=== PATIENT | male | born 1960 | race Caucasian/White ===

== ENCOUNTER 2024-02-19 20:02 | Emergency (ER) | payer MEDICARE, SELFPAY ==
[2024-02-19 20:07] VITALS: BP 126/64; PULSE 73; TEMP 36.6; O2SAT 93; BMI 38.5
--- NOTE | 2024-02-19 21:05 | ED.PSYCH1 ---
HPI - Psych General Chief Complaint: Psychiatric Symptoms Stated Complaint: DEPRESSION Time Seen by Provider: 02/19/24 20:10 Source: Reports patient Mode of arrival: walk-in Limitations: Reports no limitations History of Present Illness HPI Narrative: 63-year-old male to the emergency department chief complaint of feeling depressed. Patient reports that there is a festival in town. He reports that when the music is loud he feels sad and depressed. When the music is not loud he feels at his baseline. He came tonight to talk to somebody about it. He denies any SI or HI. He denies any auditory or visual hallucinations. He has no medical concerns at this time. Related Data Home Medications ?Medication ?Instructions ?Recorded ?Confirmed amlodipine 10 mg tablet 10 mg PO DAILY 02/19/24 02/19/24 atorvastatin 40 mg tablet 40 mg PO DAILY 02/19/24 02/19/24 glimepiride 4 mg tablet 4 mg PO DAILY 02/19/24 02/19/24 insulin glargine 100 unit/mL (3 40 unit subcut BID 02/19/24 02/19/24 mL) subcutaneous pen (Lantus Solostar U-100 Insulin) levocetirizine 5 mg tablet 5 mg PO DAILY 02/19/24 02/19/24 lisinopril 40 mg tablet 40 mg PO DAILY 02/19/24 02/19/24 omeprazole 20 mg capsule,delayed 20 mg PO DAILY 02/19/24 02/19/24 release oxybutynin chloride 10 mg 10 mg PO DAILY 02/19/24 02/19/24 tablet,extended release 24 hr pilocarpine HCl 5 mg tablet 5 mg PO DAILY 02/19/24 02/19/24 semaglutide 0.25 mg or 0.5 mg (2 2 mg subcut DAILY 02/19/24 02/19/24 mg/3 mL) subcutaneous pen injector (Ozempic) Allergies Allergy/AdvReac Type Severity Reaction Status Date / Time No Known Drug Allergies Allergy Verified 02/19/24 20:11 Review of Systems ROS Status of ROS 10 or more systems reviewed and unremarkable except as noted in history and below [facility] Medical History (Updated 02/19/24 @ 23:49 by Alexis Singh MD) High cholesterol ?E78.00 - Pure hypercholesterolemia, unspecified (ICD-10) Diabetes ?E11.9 - Type 2 diabetes mellitus without complications (ICD-10) Hypertension ?I10 - Essential (primary) hypertension (ICD-10) Social History Little interest or pleasure in doing things: not at all Feeling down, depressed, or hopeless: more than half the days Exam Narrative Exam Narrative: VITALS: I have reviewed the triage vital signs. GENERAL: Obese adult male in no distress. Smiling and waving as he walks in. NEURO: Alert and oriented x 4. Moves all extremities. Face is symmetric and expressive. EYES: PERRL. No scleral icterus or conjunctival injection. No discharge. HENT: Normocephalic, atraumatic. Hearing is grossly intact. Nares grossly patent and without discharge. Mucous membranes moist. NECK: No JVD. Patient moves neck without restriction. CARDIO: Rhythm regular. Normal rate. No murmur, rub, or gallop. Pulses equal bilaterally in the upper and lower extremity. No lower extremity edema. PULM: Lungs clear to auscultation in all trent. No wheezes, rales, or rhonchi. No conversational dyspnea. No splinting, stridor, or accessory muscle use. GI/: Abdomen is soft and non-tender. Normoactive bowel sounds. EXTREMITIES: Symmetric muscle bulk. No joint swelling. No clubbing, cyanosis, or deformity. SKIN: Warm and dry. Normal turgor. No rash or lesions appreciated. PSYCH: Mood, affect, and interaction is appropriate to the setting. Constitutional Vital Signs, click to edit/add: Last Vital Signs Temp 97.9 F 02/19/24 20:07 Pulse 68 02/20/24 00:22 Resp 20 02/20/24 00:22 BP 112/61 02/20/24 00:22 Pulse Ox 94 L 02/20/24 00:22 O2 Del Method Room Air 02/20/24 00:22 Course Vital Signs Vital signs: Vital Signs Temperature 97.9 F 02/19/24 20:07 Pulse Rate 73 02/19/24 20:07 Respiratory Rate 18 02/19/24 20:07 Blood Pressure 126/64 02/19/24 20:07 Pulse Oximetry 93 L 02/19/24 20:07 Oxygen Delivery Method Room Air 02/19/24 20:07 Temperature 97.9 F 02/19/24 20:07 Pulse Rate 68 02/20/24 00:22 Respiratory Rate 20 02/20/24 00:22 Blood Pressure 112/61 02/20/24 00:22 Pulse Oximetry 94 L 02/20/24 00:22 Oxygen Delivery Method Room Air 02/20/24 00:22 MDM - Psych MDM Narrative Medical decision making narrative: 63-year-old male to the emergency department chief complaint of feeling depressed when music is loud at a festival in town. Vital stable, the patient is afebrile. No SI or HI. No medical complaints at this time. Will have him talk with [facility] to get follow-up. Despite telling myself and nursing staff that he had no suicidal ideation after talking to [facility] he did not involve that he has suicidal ideation. They will pursue voluntary admission at this time. Psychiatric clearance labs are ordered. Lab work unremarkable. Patient is medically cleared for psychiatric placement. Accepted to Dr. Boland at [facility] [place] [place] [facility]. Medical Records Attestation: I reviewed the patient's medical records. Lab Data Attestation: I reviewed the patient's lab results. Labs: Lab Results 02/19/24 02/19/24 Range/Units 22:52 22:53 WBC 7.3 (4.0-11.0) 10^3/uL RBC 4.65 L (4.70-6.10) 10^6/uL Hgb 12.3 L (14.0-18.0) g/dL Hct 38.4 L (42.0-54.0) % MCV 82.6 (80.0-94.0) fL MCH 26.5 (25.9-34.0) pg MCHC 32.0 (29.9-35.2) g/dL RDW 16.9 H (11.0-15.0) % Plt Count 205 (150-450) 10^3/uL MPV 9.9 (9.5-13.5) fL Neut % (Auto) 55.1 (43.0-75.0) % Lymph % (Auto) 34.0 (20.5-60.0) % [place] % (Auto) 7.0 (1.7-12.0) % Eos % (Auto) 3.1 (0.9-7.0) % Baso % (Auto) 0.5 (0.2-2.0) % Neut # (Auto) 4.0 (1.4-6.5) 10^3/uL Lymph # (Auto) 2.5 (1.2-3.8) 10^3/uL [place] # (Auto) 0.5 (0.3-0.8) 10^3/uL Eos # (Auto) 0.2 (0.0-0.7) 10^3/uL Baso # (Auto) 0.0 (0.0-0.1) 10^3/uL Abs Immat Gran (auto) 0.02 (0.00-0.03) 10^3/uL Imm/Tot Granulo (auto) 0.3 (0.0-0.5) % Sodium 137 (136-145) mmol/L Potassium 3.6 (3.5-5.1) mmol/L Chloride 101 (98-107) mmol/L Carbon Dioxide 23.2 (21.0-32.0) mmol/L Anion Gap 16.4 BUN 41.0 H (7.0-18.0) mg/dL Creatinine 2.87 H (0.70-1.30) mg/dL Est GFR ( Amer) 27 L (>=60) Est GFR (Non-Af Amer) 23 L (>=60) BUN/Creatinine Ratio 14.3 Glucose 133 H (74-106) mg/dL Calcium 10.1 (8.5-10.1) mg/dL Total Bilirubin 0.4 (0.2-1.0) mg/dL AST 29 (15-37) U/L ALT 23 (16-63) U/L Alkaline Phosphatase 154 H (46-116) U/L Total Protein 8.2 (6.4-8.2) g/dL Albumin 3.7 (3.4-5.0) g/dL Globulin 4.5 g/dL Albumin/Globulin Ratio 0.8 Urine Color Lt. yellow (YELLOW) Urine Clarity Clear (CLEAR) Urine pH 5.5 (5.0-9.0) Ur Specific [place] 1.010 (1.005-1.025) Urine Protein Negative (NEG/TRACE) mg/dL Urine Glucose (UA) Negative (NEGATIVE) mg/dL Urine Ketones Negative (NEGATIVE) mg/dL Urine Occult Blood Negative (NEGATIVE) Urine Nitrite Negative (NEGATIVE) Urine Bilirubin Negative (NEGATIVE) Urine Urobilinogen 0.2 (0.2-1.0) EU/dL Ur Leukocyte Esterase Trace A (NEGATIVE) Urine RBC 0-2 (0-2) #/HPF Urine WBC 2-5 A (NONE SEEN) #/HPF Ur Squamous Epith Cells Moderate A (NONE/RARE) #/LPF Urine Crystals None seen (None Seen) #/HPF Urine Bacteria Trace A (NONE SEEN) #/HPF Urine Casts Seen A (NONE SEEN) #/LPF Hyaline Casts Moderate Urine Mucus Small A (NONE SEEN) Ur Culture Indicated? No Urine Opiates Screen Negative (NEGATIVE) Ur Buprenorphine Scrn Negative (NEGATIVE) Ur Oxycodone Screen Negative (NEGATIVE) Urine Methadone Screen Negative (NEGATIVE) Ur Barbiturates Screen Negative (NEGATIVE) U Tricyclic Antidepress Negative (NEGATIVE) Ur Phencyclidine Scrn Negative (NEGATIVE) Ur Amphetamines Screen Negative (NEGATIVE) U Methamphetamines Scrn Negative (NEGATIVE) U Benzodiazepines Scrn Negative (NEGATIVE) Urine Cocaine Screen Negative (NEGATIVE) U Cannabinoids Screen Negative (NEGATIVE) Ethanol Quant <3 mg/dL ECG Data Attestation: I personally reviewed and interpreted this ECG as follows: (Normal sinus rhythm at a rate of 63. No STEMI. QTc 408.) Discharge Plan Discharge Chief Complaint: Psychiatric Symptoms Clinical Impression: Suicidal ideation, Depression Patient Disposition: [facility] Time of Disposition Decision: 23:49 Discharge location: [facility] [place] [place] [facility] Condition: Good Mode of Transportation: Mental Health Car
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
--- NOTE | 2024-02-19 22:51 | ECG_ITS ---
[facility] Test Date: 2024-02-19 Pat Name: ISIDRO GOMEZ Department: Room: - Gender: Male Qa Analyst: : 1960 Requested By: Order Number: [id number] Reading MD: LAMONT DIAS Measurements Intervals [place] Rate: 63 P: 41 [place]: 198 QRS: 26 QRSD: 90 T: 22 QT: 400 QTc: 408 Interpretive Statements 1100 Sinus rhythm 9110 normal ECG Compared to ECG 01/02/2019 18:59:23 No significant changes Electronically Signed On 02-20-2024 7:55:17 EDT by LAMONT DIAS
[2024-02-19 23:03] LABS: Basophils Percent Auto 0.5 % (0.2-2.0); Eosinophils Absolute Auto 0.2 10^3/uL (0.0-0.7); Eosinophils Percent Auto 3.1 % (0.9-7.0); Hematocrit 38.4 % (42.0-54.0); Hemoglobin 12.3 g/dL (14.0-18.0); Immature Granulocytes Abs Auto 0.02 10^3/uL (0.00-0.03); Immature Granulocytes Pct Auto 0.3 % (0.0-0.5); Lymphocytes Absolute Auto 2.5 10^3/uL (1.2-3.8); Mean Corpuscular Hemoglobin 26.5 pg (25.9-34.0); Mean Corpuscular Volume 82.6 fL (80.0-94.0); Mean Platelet Volume 9.9 fL (9.5-13.5); Monocytes Absolute Auto 0.5 10^3/uL (0.3-0.8); Neutrophils Percent Auto 55.1 % (43.0-75.0); Platelet Count 205 10^3/uL (150-450); Red Blood Count 4.65 10^6/uL (4.70-6.10); Red Cell Distribution Width 16.9 % (11.0-15.0); White Blood Count 7.3 10^3/uL (4.0-11.0)
[2024-02-19 23:10] LABS: Bilirubin Urine NEGATIVE (NEGATIVE); Blood Urine NEGATIVE (NEGATIVE); Clarity Urine CLEAR (CLEAR); Color Urine LT. YELLOW (YELLOW); Glucose Urine UA NEGATIVE (NEGATIVE); Ketones Urine NEGATIVE (NEGATIVE); Leukocyte Esterase Urine TRACE (NEGATIVE); Nitrite Urine NEGATIVE (NEGATIVE); Protein Urine NEGATIVE (NEG/TRACE); Urobilinogen Urine 0.2 EU/dL (0.2-1.0); pH Urine 5.5 (5.0-9.0)
[2024-02-19 23:11] LABS: Urine Microscopic Indicated YES
[2024-02-19 23:18] VITALS: PULSE 63
[2024-02-19 23:19] VITALS: BP 122/73
[2024-02-19 23:19] LABS: RBC Urine 0-2 #/HPF (0-2)
[2024-02-19 23:20] LABS: Bacteria Urine TRACE #/HPF (NONE SEEN); Cast Seen? SEEN #/LPF (NONE SEEN); Crystals Seen? None Seen #/HPF (None Seen); Hyaline Casts Urine MODERATE; Mucus Urine SMALL (NONE SEEN); Squamous Epithelial Cell Urine MODERATE #/LPF (NONE/RARE)
[2024-02-19 23:21] LABS: Alanine Aminotransferase 23 U/L (16-63); Albumin Globulin Ratio 0.8; Albumin Level 3.7 g/dL (3.4-5.0); Alkaline Phosphatase 154 U/L (46-116); Anion Gap 16.4; Aspartate Amino Transferase 29 U/L (15-37); BUN Creatinine Ratio 14.3; Bilirubin Total 0.4 mg/dL (0.2-1.0); Calcium 10.1 mg/dL (8.5-10.1); Carbon Dioxide 23.2 mmol/L (21.0-32.0); Chloride 101 mmol/L (98-107); Estimated GFR (African America 27 (>=60); Estimated GFR (Non-African Ame 23 (>=60); Ethanol <3 mg/dL; Globulin 4.5 g/dL; Glucose 133 mg/dL (74-106); Potassium 3.6 mmol/L (3.5-5.1); Sodium 137 mmol/L (136-145); Total Protein 8.2 g/dL (6.4-8.2)
[2024-02-19 23:21] LABS: Amphetamine Screen Urine NEGATIVE (NEGATIVE); Barbiturates Screen Urine NEGATIVE (NEGATIVE); Benzodiazepines Screen Urine NEGATIVE (NEGATIVE); Buprenorphine Screen Urine NEGATIVE (NEGATIVE); Cannabinoid Screen Urine NEGATIVE (NEGATIVE); Cocaine Screen Urine NEGATIVE (NEGATIVE); Methadone Screen Urine NEGATIVE (NEGATIVE); Methamphetamines Screen Urine NEGATIVE (NEGATIVE); Opiate Screen Urine NEGATIVE (NEGATIVE); Oxycodone Screen Urine NEGATIVE (NEGATIVE); Phencyclidine Screen Urine NEGATIVE (NEGATIVE); Tricyclic Antidepressant Urine NEGATIVE (NEGATIVE); Urine Culture Indicated NO
[2024-02-20 00:22] VITALS: BP 112/61; PULSE 68; O2SAT 94
--- NOTE | 2024-02-20 00:36 | PC.NURSE ---
Report called to [facility]. Transfer here
== END 2024-02-20 00:47 ==
PROVIDERS: Emergency Provider Student in an Organized Health Care Education/Training Program
DX: F32.A Depression, unspecified (principal); R45.851 Suicidal ideations; Z79.899 Other long term (current) drug therapy
CPT/HCPCS: 36415; 80053; 80307; 80320; 81001; 85025; 93005; 99285

== ENCOUNTER 2024-03-21 15:41 | Observation (INO) | payer MEDICARE, SELFPAY ==
[2024-03-21] VITALS (17 sets, daily range): BP systolic 99–120; BP diastolic 60–73; PULSE 76–101; TEMP 36.6–37.2; O2SAT 94–97; BMI 38.5; BMI 36.3
--- NOTE | 2024-03-21 16:09 | ED.DIZZY1 ---
HPI - Dizziness General Chief Complaint: Dizziness Stated Complaint: dizzy/ear pain Time Seen by Provider: 03/21/24 15:53 Source: patient and family Mode of arrival: walk-in Limitations: no limitations History of Present Illness HPI Narrative: This patient is here with his . When I ask him what we can do forhim he says he wants to get checked out. He was not specific about what he wants checked out. He does admit that he was a patient in [facility] recently but does not know what they concluded. He went there because he was dizzy. When I ask him what he means by dizzy he lifts his hands up goes in a [place] and he says it feels like the room is moving. He does not know if they gave him medication. He is an extremely limited historian. He did drive to the hospital himself today. His is not able to provide much information either. They do have a blood pressure cuff machine at home but they do not know exactly what it was. He thinks that they decreased his blood pressure medicines recently but is not sure. He does not remember having a CT or MRI scan. He has not had follow-up. He does not have any chest pain or shortness of breath. He said he was not dizzy today. He was dizzy yesterday and he says he feels fine today. We will try to get those records. Patient's were obtained from the other facility and he has a host of medical problems. Stated they admitted him but I cannot see that they did any CT imaging for him. They did adjust his medication. They felt that he had acute on chronic kidney disease. This is in addition to his diabetes and hypertension and cognition developmental delay. Related Data Home Medications ?Medication ?Instructions ?Recorded ?Confirmed amlodipine 10 mg tablet 10 mg PO DAILY 02/19/24 02/19/24 atorvastatin 40 mg tablet 40 mg PO DAILY 02/19/24 02/19/24 glimepiride 4 mg tablet 4 mg PO DAILY 02/19/24 02/19/24 insulin glargine 100 unit/mL (3 40 unit subcut BID 02/19/24 02/19/24 mL) subcutaneous pen (Lantus Solostar U-100 Insulin) levocetirizine 5 mg tablet 5 mg PO DAILY 02/19/24 02/19/24 lisinopril 40 mg tablet 40 mg PO DAILY 02/19/24 02/19/24 omeprazole 20 mg capsule,delayed 20 mg PO DAILY 02/19/24 02/19/24 release oxybutynin chloride 10 mg 10 mg PO DAILY 02/19/24 02/19/24 tablet,extended release 24 hr pilocarpine HCl 5 mg tablet 5 mg PO DAILY 02/19/24 02/19/24 semaglutide 0.25 mg or 0.5 mg (2 2 mg subcut DAILY 02/19/24 02/19/24 mg/3 mL) subcutaneous pen injector (Ozempic) Allergies Allergy/AdvReac Type Severity Reaction Status Date / Time No Known Drug Allergies Allergy Verified 03/21/24 15:48 [facility] Medical History (Updated 03/21/24 @ 17:24 by Tariq Wilcox MD) High cholesterol ?E78.00 - Pure hypercholesterolemia, unspecified (ICD-10) Diabetes ?E11.9 - Type 2 diabetes mellitus without complications (ICD-10) Hypertension ?I10 - Essential (primary) hypertension (ICD-10) Social History Little interest or pleasure in doing things: not at all Feeling down, depressed, or hopeless: not at all Exam Narrative Exam Narrative: Patient is awake alert extremely poor historian as noted no doubt due to his cognitive delay. The was not very helpful. His vital's are able to very pleasant people. He does not have a headache he has no stiff neck. Cervical range of motion is unrestricted reproduce no symptomatology. I hear no carotid bruits. There is no jugular vein distention. His lungs and scattered rhonchi but no wheezing. Heart sounds are regular during auscultation but his EKG showed that he has a sinus rhythm as well with first-degree AV block. Neurological examination shows [id number] to be normal rapid alternating movements to be normal. He has no truncal ataxia. Cranial nerves II to XII are normal as well. Skin is warm and dry no evidence of petechiae purpura or other rash. Abdomen he has obese but he has no tenderness to palpation. His extremities have no evidence of phlebitis or DVT. Constitutional Vital Signs, click to edit/add: Last Vital Signs Temp 98.9 F 03/21/24 15:48 Pulse 101 H 03/21/24 15:48 Resp 20 03/21/24 15:48 BP 99/67 03/21/24 15:48 Pulse Ox 97 03/21/24 15:48 O2 Del Method Room Air 03/21/24 15:48 Course Vital Signs Vital signs: Vital Signs Temperature 98.9 F 03/21/24 15:48 Pulse Rate 101 H 03/21/24 15:48 Respiratory Rate 20 03/21/24 15:48 Blood Pressure 99/67 03/21/24 15:48 Pulse Oximetry 97 03/21/24 15:48 Oxygen Delivery Method Room Air 03/21/24 15:48 Temperature 98.9 F 03/21/24 15:48 Pulse Rate 101 H 03/21/24 15:48 Respiratory Rate 20 03/21/24 15:48 Blood Pressure 99/67 03/21/24 15:48 Pulse Oximetry 97 03/21/24 15:48 Oxygen Delivery Method Room Air 03/21/24 15:48 MDM - Dizziness MDM Narrative Medical decision making narrative: This patient has a continued deterioration of his kidney function. He is on a number of medications and probably has metabolic syndrome. He does not have any nystagmus. Both his ear canals have some wax but the superior aspect of his TMs appear normal with no evidence of trauma or injury. He has no focal neurological deficits and his history is consistent with vertigo type symptomatology. I have spoken to the hospitalist and she has agreed to admit him for eval in the records obtained his other process of his well Discharge Plan Discharge Chief Complaint: Dizziness Clinical Impression: Acute kidney injury Patient Disposition: Admitted as Observation Time of Disposition Decision: 17:23 Prescriptions / Home Meds: No Action amlodipine 10 mg tablet 10 mg PO DAILY atorvastatin 40 mg tablet 40 mg PO DAILY glimepiride 4 mg tablet 4 mg PO DAILY insulin glargine [Lantus Solostar U-100 Insulin] 100 unit/mL (3 mL) insulin pen 40 unit SUBCUT BID levocetirizine 5 mg tablet 5 mg PO DAILY lisinopril 40 mg tablet 40 mg PO DAILY omeprazole 20 mg capsule,delayed release(DR/EC) 20 mg PO DAILY oxybutynin chloride 10 mg tablet extended release 24hr 10 mg PO DAILY pilocarpine HCl 5 mg tablet 5 mg PO DAILY Ozempic 0.25 mg or 0.5 mg (2 mg/3 mL) pen injector 2 mg SUBCUT DAILY Print Language: Ukrainian Referrals: Physician,Non-Staff, MD [Primary Care Provider] - 1 week
--- NOTE | 2024-03-21 16:11 | ECG_ITS ---
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
--- NOTE | 2024-03-21 16:11 | CT_ITS ---
The [address] [address] Patient Name: ISIDRO GOMEZ MRN: [id number] date: 1960 Sex: M Assigned Patient Location: ER Current Patient Location: ER Accession/Order Number: [id number] Exam Date: 03/21/2024 16:46 Report Date: 03/21/2024 17:18 At the request of: CYNTHIA MANN Procedure: CT head/brain wo con EXAM: CT head/brain wo con HISTORY: Vertigo/lightheadedness COMPARISON: None. TECHNIQUE: Axial CT scans through the head were obtained without IV contrast administration. Dose reduction techniques were achieved by using: automated exposure control and/or adjustment of mA and /or kV according to patient size and/or use of iterative reconstruction technique. FINDINGS: There is no evidence of acute intracranial hemorrhage or abnormal extra-axial fluid collection. No mass effect or midline shift is seen. There is no evidence of large acute territorial infarction. There is no hydrocephalus. There is age appropriate mild cerebral and cerebellar atrophy. No definite acute fracture is identified. Soft tissues are unremarkable. The visualized orbits show no abnormality. The visualized paranasal sinuses show no air-fluid level. Mastoid air cells are clear. CT/CT head/brain wo con IMPRESSION: No CT evidence of acute intracranial abnormality. Electronically authenticated by: FÁTIMA PARHAM Date: 03/21/2024 17:18
[2024-03-21 16:34] LABS: Basophils Percent Auto 0.4 % (0.2-2.0); Eosinophils Absolute Auto 0.3 10^3/uL (0.0-0.7); Eosinophils Percent Auto 3.4 % (0.9-7.0); Hemoglobin 11.6 g/dL (14.0-18.0); Immature Granulocytes Abs Auto 0.03 10^3/uL (0.00-0.03); Immature Granulocytes Pct Auto 0.3 % (0.0-0.5); Lymphocytes Absolute Auto 2.3 10^3/uL (1.2-3.8); Lymphocytes Percent Auto 24.2 % (20.5-60.0); Mean Corpuscular HGB Conc 32.2 g/dL (29.9-35.2); Mean Corpuscular Hemoglobin 27.3 pg (25.9-34.0); Mean Corpuscular Volume 84.7 fL (80.0-94.0); Mean Platelet Volume 10.1 fL (9.5-13.5); Monocytes Absolute Auto 0.5 10^3/uL (0.3-0.8); Monocytes Percent Auto 5.3 % (1.7-12.0); Neutrophils Absolute Auto 6.2 10^3/uL (1.4-6.5); Neutrophils Percent Auto 66.4 % (43.0-75.0); Platelet Count 200 10^3/uL (150-450); Red Blood Count 4.25 10^6/uL (4.70-6.10); Red Cell Distribution Width 16.7 % (11.0-15.0); White Blood Count 9.3 10^3/uL (4.0-11.0)
[2024-03-21 16:49] LABS: Lactate/Lactic Acid 1.8 mmol/L (0.4-2.0)
[2024-03-21 16:52] LABS: Alanine Aminotransferase 36 U/L (16-63); Albumin Globulin Ratio 0.8; Albumin Level 3.5 g/dL (3.4-5.0); Alkaline Phosphatase 160 U/L (46-116); Anion Gap 20.8; Aspartate Amino Transferase 31 U/L (15-37); BUN Creatinine Ratio 11.5; Bilirubin Total 0.4 mg/dL (0.2-1.0); Calcium 8.8 mg/dL (8.5-10.1); Chloride 104 mmol/L (98-107); Estimated GFR (African America 15 (>=60 mL/min/1.73m^2); Estimated GFR (Non-African Ame 12 (>=60 mL/min/1.73m^2); Globulin 4.4 g/dL; Glucose 209 mg/dL (74-106); Potassium 4.8 mmol/L (3.5-5.1); Sodium 139 mmol/L (136-145); Total Protein 7.9 g/dL (6.4-8.2); Troponin I High Sensitivity 4.9 pg/mL (4.0-76.1)
--- NOTE | 2024-03-21 17:32 | US_ITS ---
The [address] [address] Patient Name: ISIDRO GOMEZ MRN: [id number] date: 1960 Sex: M Assigned Patient Location: MS Current Patient Location: [place] Accession/Order Number: [id number] Exam Date: 03/21/2024 20:10 Report Date: 03/21/2024 23:24 At the request of: MASON BARRAZA Procedure: US renal bladder EXAM: US renal bladder HISTORY: trisha, uremia COMPARISON: None. TECHNIQUE: Grayscale and color images of the kidneys and bladder were obtained. FINDINGS: The right kidney measures 11.3 x 5.9 x 5.9 cm. renal cortex measures 1 cm in thickness. Corticomedullary differentiation is preserved. There is no collecting system dilation. There is normal color flow. The left kidney measures 11.6 x 4.8 x 5.8 cm. Renal cortex measures 0.9 cm in thickness. Corticomedullary differentiation is preserved. There is no collecting system dilation. Hypoechoic focus of the upper pole, 1.1 cm, too small to definitively characterize, likely cyst. Shadowing echogenic focus of the left upper pole, 1.4 x 0.5 cm. There is normal color flow. The urinary bladder is normal in appearance with prevoid volume of 572 mL and post void residual of 234 mL. Right and left ureteral jets are visualized. US/US renal bladder IMPRESSION: 1. Left upper pole nonobstructive nephrolith. 2. Left upper pole hypoechoic focus, too small to definitively characterize, likely cyst. 3. Otherwise normal appearance of the kidneys. 4. Post void residual bladder volume of 234 mL. Electronically authenticated by: FRANC COPELAND Date: 03/21/2024 23:24
[2024-03-21 17:43] LABS: Acetone NEGATIVE (NEGATIVE)
[2024-03-21 17:58] LABS: PCO2 VBG 27.7 mmHg (40.0-52.0); pH VBG 7.395 (7.330-7.430)
--- OUTSIDE RECORDS SUMMARY | 2024-03-21 18:20 | XMS_ITS | CCD ---
Author Organization [facility] Informat ion Partnership [facility] Care Team Providers Care Insurance Specialist Name Role Phone LUIS MANUEL CARLOSSAD Buffy Referring Unavailabl SATHISH Garcia Primary Care Unavailabl Sathish Garcia Primary Care Provider [phone] DR TYREL ALVAREZ Admitting Unavailable ANUPAMA, DR TYREL Oliver Consulting Unavailable ANUPAMA, DR TYREL Oliver Attending Unavailable ROYAL, DR NONE LISTED Primary Care Unavaila MG Donovan Consulting Unavailable Cordell Bailey Consulting Unavailable Breanna TRIPATHI, Lisad Buffy Primary Care Provider Jessica Carlos MD Primary Care Provider FRANC DIAZ Attending Unavailable FRANC DIAZ Attending Unavailable FRANC DIAZ Attending Unavailable SHARMAINE KISER Attending Unavailable BREANNA, SHIVAPRASAD K Referring Unavailabl e BREANNA, SHIVAPRASAD K Primary Care Unavailabl KALE Call Attending Unavailable BREANNA, SHIVAPRASAD K Referring Unavailabl e BREANNA, SHIVAPRASAD K Primary Care Unavailabl MASON Koch Attending Unavailable BREANNA, SHIVAPRASAD K Referring Unavailabl e BREANNA, SHIVAPRASAD K Primary Care Unavailabl YANI Ennis Attending Unavailable BREANNA, SHIVAPRASAD K Referring Unavailabl e BREANNA, SHIVAPRASAD K Primary Care Unavailabl MASON Koch Attending Unavailable BREANNA, SHIVAPRASAD K Referring Unavailabl e BREANNA, SHIVAPRASAD K Primary Care Unavailabl JARETT Ortega I Attending Unavailable BREANNA, SHIVAPRASAD K Referring Unavailabl e BREANNA, SHIVAPRASAD K Primary Care Unavailabl e CATALINA NEUMANN Attending Unavailable BREANNA, SHIVAPRASAD K Referring Unavailabl e BREANNA, SHIVAPRASAD K Primary Care Unavailabl e SHARMAINE KISER Attending Unavailable BREANNA, SHIVAPRASAD K Referring Unavailabl e BREANNA, SHIVAPRASAD K Primary Care Unavailabl e JARETT TRIPP I Attending Unavailable BREANNA, SHIVAPRASAD K Referring Unavailabl e BREANNA, SHIVAPRASAD K Primary Care Unavailabl e NO FAMILY, PHYSICIAN Primary Care Provider Unava ilable MD Timbo Boland Attending Provider NON STAFF Primary Care Provider Unavailabl e MD Timbo Boland Admit Provider GIOVANNI Bonilla Other Provider Unavailable GIOVANNI Alcocer Other Provider Unavailable GIOVANNI Basurto Other Provider Unavailable GIOVANNI Veloz Other Provider Unavailable GIOVANNI Salas Other Provider Unavailable MD Adeline Russo Other Provider DO Jaime Evans Other Provider MD Marquez Osborne Other Provider DO Cuauhtemoc Dobson Other Provider [phone] MD Brody Rosales Other Provider MD Chiara Cardenas Other Provider MD Jacob Carver Other Provider Unavailable BO Parsons Other Provider MD Tiago Vazquez Other Provider MD Vern Looney Other Provider MD Lori Chu Other Provider MD Jimenez Michelle Other Provider DO Blayne Estrada Other Provider MD Frida Forrester Other Provider MD Xu Snowden Other Provider LESLIE VegaC Margaret Pulliam Other Provider BO Eller Other Provider Unavailable MD Gilbert Rosas Other Provider MD Mohit Thorpe Other Provider MD Bhanu Skaggs Other Provider MD Chencho Field Other Provider Unavailable MD Sourav Dallas Other Provider DO Jacki Rosales Other Provider DO Herson Thomason Other Provider BO Jara Other Provider DO Nomi Jung Other Provider MD Rebecca Hodges Other Provider BO Alvarez Other Provider BO Han Other Provider MD Kyrie Connor Other Provider MD Jordy Pratt Other Provider DO Philippe Tapia Other Provider DO Royer Thompson Other Provider MD Ashkan Skaggs P Other Provider MD Rosa Pringle Other Provider BO Tapia Other Provider MD Abby Hickman Other Provider MD Jitendra Velazquez Other Provider GIOVANNI Hua Other Provider Unavailable Breanna TRIPATHI, Jessica Baer Primary Care Provider NON STAFF Primary Care Unavailable Timbo Boland Admitting Unavailab Phani Landon Attending Unavailable Angella Bonilla Consulting Unavailable Liz Alcocer Consulting Unavailable Jarett Basurto Consulting Unavailable Doris Veloz Consulting Unavailable Paulette Salas Consulting Unavailable Adeline Russo Consulting Unavailable Jaime Evans Consulting Unavailable Marquez Osborne Consulting Unavailable Cuauhtemoc Dobson Consulting UnavailBrody Gutierrez Consulting Unavailable Chiara Cardenas Consulting Unavailable Jacob Carver Consulting Unavailable Keisha Parsons Consulting UnavailTiago Holbrook Consulting Unavailable Vern Looney Consulting Unavailable Lori Chu Consulting Unavailable Jimenez Michelle Consulting Unavailable Blayne Estrada Consulting Unavailable Frida Forrester Consulting Unavailable Xu Snowden Consulting Unavailable Margaret Vega Consulting Unavailable Santos Eller Consulting Unavailable Gilbert Rosas Consulting Unavailab Mohit Sandhu Consulting Unavailable Bhanu Skaggs Consulting Unavailable Chencho Field Consulting Unavailable Sourav Dallas Consulting Unavailable Jacki Rosales Consulting Unavailable Herson Thomason Consulting Unavailable ObTyesha lizama Consulting Unavailable Nomi Jung Consulting Unavailable Daromar Obaykimberlyh Nelia Consulting Unavailable Nae Alvarez Consulting Unavailable Yanely Han Consulting Unavailable Alaezequiel Alaedgar Consulting Unavailable Jordy Pratt Consulting Unavailable Philippe Tapia Consulting Unavailable Royer Thompson Consulting Unavailable Ashkan Skaggs Consulting Unavailable Rosa Pringle Consulting Unava ilable Prachi Tapia Consulting Unavailable Abby Hickman Consulting Unavailable Jitendra Velazquez Consulting Unavailable Priya Hua Consulting Unavailable NO FAMILY, PHYSICIAN Primary Care Unavailable Timbo Boland Attending Unavailab le Timbo Boland Admitting Unavailab le BREANNA, SHIVAPRASAD K Referring Unavailabl e BREANNA, SHIVAPRASAD K Primary Care Unavailabl SHARMAINE Long Referring Unavailable BREANNA, SHIVAPRASAD K Primary Care Unavailabl e BREANNA, SHIVAPRASAD K Referring Unavailabl e BREANNA, SHIVAPRASAD K Primary Care Unavailabl e BREANNA, SHIVAPRASAD K Primary Care UnavailBLAYNE Marino Attending Unavailab ARSH Wolff Admitting Unavailable KALE SWANSON Consulting Unavailable ONLY), [facility] (INPATIENT Consult ing Unavailable BLAYNE ZEE Attending Unavailab BLAYNE Rodriguez Referring Unavailab le BREANNA, SHIVAPRASAD K Primary Care Unavailabl mainor BIENVENIDO BACK Attending Unavailable BREANNA, SHIVAPRASAD K Primary Care Unavailabl e BREANNA, SHIVAPRASAD K Primary Care Unavailabl e RENE WHITE Attending Unavailable GILBERTO KIRK Attending Unavailable BREANNA, SHIVAPRASAD K Referring Unavailabl e BREANNA, SHIVAPRASAD K Primary Care Unavailabl e GILBERTO KIRK Attending Unavailable BREANNA, SHIVAPRASAD K Referring Unavailabl e BREANNA, SHIVAPRASAD K Primary Care Unavailabl e BREANNA, SHIVAPRASAD K Primary Care Unavailabl e RICHARD MISTRY Attending Unavailable GILBERTO KIRK Attending Unavailable BREANNA, TORRESVAPRASAD K Referring Unavailabl e BREANNA, SHIVAPRASAD K Primary Care Unavailabl e BREANNA, SHIVAPRASAD K Referring Unavailabl e BREANNA, SHIVAPRASAD K Primary Care Unavailabl e BREANNA, SHIVAPRASAD K Referring Unavailabl e BREANNA, SHIVAPRASAD K Primary Care Unavailabl GILBERTO Fu Attending Unavailable BREANNA, SHIVAPRASAD K Referring Unavailabl e BREANNA, SHIVAPRASAD K Primary Care UnavailGILBERTO Cardenas Attending Unavailable BREANNA, SHIVAPRASAD K Referring Unavailabl e BREANNA, SHIVAPRASAD K Primary Care Unavailabl e SHARMAINE KISER Admitting Unavailable SHARMAINE KISER Attending Unavailable SHARMAINE KISER Referring Unavailable BREANNA, SHIVAPRASAD K Primary Care Unavailabl BETH Giles Attending Unavailable BREANNA, SHIVAPRASAD K Primary Care Unavailabl e GILBERTO KIRK Attending Unavailable BREANNA, SHIVAPRASAD K Referring Unavailabl e BREANNA, SHIVAPRASAD K Primary Care Unavailabl e MASON BRADY Attending Unavailable BREANNA, SHIVAPRASAD K Referring Unavailabl e BREANNA, SHIVAPRASAD K Primary Care Unavailabl e GILBERTO KIRK Attending Unavailable BREANNA, SHIVAPRASAD K Referring Unavailabl e BREANNA, SHIVAPRASAD K Primary Care Unavailabl e GILBERTO KIRK Attending Unavailable BREANNA, SHIVAPRASAD K Referring Unavailabl e BREANNA, SHIVAPRASAD K Primary Care Unavailabl e BREANNA, SHIVAPRASAD K Referring Unavailabl e BREANNA, SHIVAPRASAD K Primary Care Unavailabl e BREANNA, SHIVAPRASAD K Referring Unavailabl e BREANNA, SHIVAPRASAD K Primary Care Unavailabl e SHARMAINE KISER Admitting Unavailable SHARMAIEN KISER Attending Unavailable SHARMAINE KISER Referring Unavailable BREANNA, SHIVAPRASAD K Primary Care Unavailabl e ROCAEL CORTES Attending Unavailable BREANNA, SHIVAPRASAD K Primary Care Unavailabl e BREANNA, SHIVAPRASAD K Primary Care Unavailabl e LIMA, LUCA Attending Unavailable LIMA, LUCA Attending Unavailable LIMA, LUCA Referring Unavailable BREANNA, SHIVAPRASAD K Primary Care Unavailabl e LIMA, LUCA Attending Unavailable LIMA, LUCA Referring Unavailable BREANNA, SHIVAPRASAD K Primary Care Unavailabl e LIMA, LUCA Attending Unavailable LIMA, LUCA Referring Unavailable BREANNA, SHIVAPRASAD K Primary Care Unavailabl e BREANNA, SHIVAPRASAD K Primary Care Unavailabl e BREANNA, SHIVAPRASAD K Primary Care Unavailabl e DAVID CHACON Attending Unavailable BREANNA, SHIVAPRASAD K Primary Care Unavailabl e BREANNA, SHIVAPRASAD K Primary Care Unavailabl LAMONTE Perry Attending Unavailable LUCY RIOS Admitting Unavailable BREANNA, SHIVAPRASAD K Referring Unavailabl e BREANNA, SHIVAPRASAD K Primary Care Unavailabl e BREANNA, SHIVAPRASAD K Primary Care Unavailabl e BREANNA, SHIVAPRASAD K Referring Unavailabl e BREANNA, SHIVAPRASAD K Primary Care Unavailabl e Allergies Allergy Classification Reported Allergen(s) Allergy Type Date of Onset Reaction(s) Facility Bee/Wasp/Ant Venom (1 source) bee venom Substance Allergy 6 [facility] (5 sources) bee venom Propensity to adverse reactions to drug 6 [place], [place] (1 source) WASP VENOM PROTEIN Drug Allergy 6 [place], [place] (6 sources) HYMENOPTERA ALLERGENIC EXTRACT; Translations: [HYMENOPTERA ALLERGENIC EXTRACT] Drug Allergy 6 [facility] (2 sources) BEE VENOM PROTEIN (HONEY BEE); Translations: [BEE VENOM PROTEIN (HONEY BEE)] Propensity to adverse reactions to drug (disorder) 6 [facility] Medications Current Medications Medication Drug Class(es) Dates Sig (Normalized) Sig (Original) acetaminophen 33.3 mg/ml oral solution (3 sources) acetaminophen 50 0 mg/15 mL liquid Orally 0 Active allopurinol 300 mg oral tablet (2 sources) Xanthine Oxidase Inhibitor Start: 07-11-2018 take 0.5 tablet by mouth once daily allopurinol (ZYLOPRIM) 300 MG tablet TAKE 1/2 TABLET BY MOUTH DAILY 1 12/06/2018 Active amLODIPine 10 mg oral tablet (7 sources) Dihydropyridine Calcium Channel Alva Start: 07-11-2018 take 1 tablet by mouth once daily amLODIPine (NORVASC) 10 MG tablet TAKE 1 TABLET BY MOUTH EVERY DAY 90 tablet 0 12/22/2019 Active take 2 tablets by mouth in the m orning amLODIPine (NORVASC) 5 mg tablet Take 2 tablets (10 mg total) by mouth in the morning. Suspended take 0.5 tablet by mouth in the morning amLODIPine (NORVASC) 5 mg tablet Take 0.5 tablets (2.5 mg total) by mouth in the morning. 0 Active amLODIPine (NORV ASC) 5 MG tablet Take 2.5 mg by mouth 0 Active ARIPiprazole 5 mg oral tablet (6 sources) Atypical Antipsychotic Start: 02-22-2024 take 5 mg by mouth once daily at bedtime Aripiprazole Active 5 MG PO Daily at bedtime February 22, 2024 12:00am Start: 07-11-2018 End: 02-22-2024 take 0.5 mg by mouth once daily Aripiprazole Discontinued 0.5 MG PO Daily July 11, 2018 1:00am February 22, 2024 10:41am Start: 11-23-2016 ARIPiprazole ( ABILIFY) 20 mg tablet 0.5 tablets (10 mg total) in the morning. 0 11/23/2016 Active Start: 11-23-2016 ARIPiprazole ( ABILIFY) 20 MG tablet 10 mg 0 11/23/2016 Active atorvastatin 40 mg oral tablet (6 sources) HMG-CoA Reductase Inhibitor Start: 05-05-2021 take 40 mg by mouth once daily Atorvastatin Active 40 MG PO Daily February 20, 2024 12:00am Start: 11-06-2019 take 1 tablet by neal th once daily atorvastatin (LIPITOR) 40 MG tablet TAKE 1 TABLET BY MOUTH EVERY DAY 90 tablet 1 11/06/2019 Active betamethasone 0.5 mg/ml / clotrimazole 10 mg/ml topical cream (2 sources) Azole Antifungal, Corticosteroid Start: 06-02-2023 End: 06-30-2023 clotrimazole-betamethasone (LOTRISONE) cream Apply 1 Application topically in the morning and 1 Application before bedtime. Do all this for 28 days. 45 g 1 06/02/2023 06/30/2023 Active cholecalciferol 0.125 mg oral tablet (7 sources) Vitamin D Start: 03-14-2024 take 1 tablet by mouth in the morning cholecalciferol, vitamin D3, 5,000 units tablet Indications: Edema, unspecified , Acute kidney injury (CMS-HCC) take one tablet by mouth in the morning 30 tablet 6 03/14/2024 Active Start: 10-28-2022 End: 03-14-2024 take 1 tablet by mouth in the morning cholecalciferol, vitamin D3, 5,000 units tablet Indications: Edema, unspecified , Acute kidney injury (CMS-HCC) Take 1 tablet (5,000 Units total) by mouth in the morning. 30 tablet 11 10/28/2022 03/14/2024 Discontinued Start: 07-11-2018 Cholecalcifero l (VITAMIN D3) 125 MCG (5000 UT) TABS Once daily 90 tablet 1 09/14/2019 Active clotrimazole 10 mg/ml topical cream (1 source) Azole Antifungal Start: 01-11-2017 clotrimazole (LOTRIMIN) 1 % cream APPLY TO AFFECTED AREA TWICE A DAY 0 01/11/2017 Active cyclobenzaprine hydrochloride 10 mg oral tablet (4 sources) Muscle Relaxant Start: 03-14-2019 cyclobenzaprin e (FLEXERIL) 10 MG tablet cyclobenzaprine HCl (FLEXERIL ORAL) Flexeril 0 Active diclofenac sodium 0.01 mg/mg topical gel (3 sources) Nonsteroidal Anti-inflammatory Drug Start: 2022 diclofenac sodium (VOLTAREN) 1 % gel Apply 2 g topically in the morning and 2 g at noon and 2 g in the evening and 2 g before bedtime. 100 g 0 2022 Active FA-vit Tommm-W-sxno-monique min D3 0.8-2,000 mg-unit tablet (3 sources) take 0.8-2000 mg by mouth once daily FA-vit Sghig-C-hvxk-vit tilley D3 0.8-2,000 mg-unit tablet 1 tablet Orally Once a day 0 Active famotidine 20 mg oral tablet (5 sources) Histamine-2 Receptor Antagonist Start: 07-11-2018 take 1 tablet by mouth in the morning, then take 1 tablet by mouth at bedtime famotidine (PEPCID) 20 mg tablet Take 1 tablet (20 mg total) by mouth in the morning and 1 tablet (20 mg total) before bedtime. 0 11/07/2018 Active gabapentin 600 mg oral tablet (6 sources) Anti-epileptic Agent Start: 07-11-2018 take 600 mg by mouth once daily at bedtime Gabapentin Active 600 MG PO Daily at bedtime July 11, 2018 1:00am glimepiride 4 mg oral tablet (3 sources) Sulfonylurea Start: 02-20-2024 take 4 mg by mouth once daily Glimepiride Active 4 MG PO Daily February 20, 2024 12:00am Start: 11-20-2019 take 1 tablet by neal th once daily before breakfast glimepiride (AMARYL) 1 MG tablet TAKE 1 TABLET BY MOUTH EVERY DAY BEFORE BREAKFAST 90 tablet 1 11/20/2019 Active indomethacin 50 mg oral capsule (1 source) Nonsteroidal Anti-inflammatory Drug Start: 10-25-2019 take 1 capsule by mouth three times daily at mealtime indomethacin (INDOCIN) 50 MG capsule Take 1 capsule by mouth 3 times daily (with meals) 15 capsule 0 10/25/2019 Active 3 ml insulin glargine 100 unt/ml pen injector (9 sources) Insulin Analog Start: 02-20-2024 Insulin Glargine (Lantus Solostar U-100 Insulin) 100 unit/mL (3 mL) insulin pen Active 40 UNIT SUBCUT Twice daily February 20, 2024 12:00am Start: 04-05-2023 insulin glargi ne (LANTUS, SEMGLEE) 100 unit/mL (3 mL) insulin pen Inject 35 Units under the skin in the morning. 15 mL 12 04/05/2023 Active Start: 04-05-2023 insulin glargi ne (LANTUS, SEMGLEE) 100 unit/mL (3 mL) insulin pen Inject 35 Units under the skin in the morning. 15 mL 12 04/05/2023 Suspended Start: 04-04-2023 insulin glargi ne (LANTUS, SEMGLEE) 100 unit/mL (3 mL) insulin pen Inject 30 Units under the skin nightly. 15 mL 12 04/04/2023 Active Start: 04-04-2023 insulin glargi ne (LANTUS, SEMGLEE) 100 unit/mL (3 mL) insulin pen Inject 30 Units under the skin nightly. 15 mL 12 04/04/2023 Suspended levocetirizine dihydrochloride 5 mg oral tablet (6 sources) Histamine-1 Receptor Antagonist Start: 07-11-2018 take 1 tablet by mouth once daily Levocetirizine (Xyzal) 5 mg Tablet Active 5 MG PO Daily July 11, 2018 1:00am lisinopril 40 mg oral tablet (7 sources) Angiotensin Converting Enzyme Inhibitor Start: 04-19-2023 take 40 mg by mouth once daily Lisinopril Active 40 MG PO Daily February 20, 2024 12:00am Start: 07-11-2018 End: 02-20-2024 take 20 mg by mouth once daily Lisinopril Discontinued 20 MG PO Daily July 11, 2018 1:00am February 20, 2024 2:26am meclizine hydrochloride 25 mg oral tablet (4 sources) Antiemetic Start: 12-08-2018 take 1 tablet by mouth three times daily as needed for dizziness meclizine (ANTIVERT) 25 mg tablet Take 1 tablet (25 mg total) by mouth 3 (three) times a day as needed for dizziness. 15 tablet 0 12/08/2018 Active metFORMIN hydrochloride 1000 mg oral tablet (3 sources) Biguanide Start: 07-11-2018 take 1000 mg by mouth twice daily at mealtime Metformin Active 1000 MG PO Twice daily with meals 60 30 February 22, 2024 12:00am metoclopramide 5 mg oral tablet (2 sources) Dopamine-2 Receptor Antagonist Start: 11-23-2017 take 1 tablet by mouth once daily Metoclopramide Hcl (Reglan) 5 mg Tablet Active 5 MG PO Daily July 11, 2018 1:00am naproxen 500 mg oral tablet (1 source) Nonsteroidal Anti-inflammatory Drug Start: 07-11-2018 take 500 mg by mouth twice daily Naproxen Active 500 MG PO Twice daily July 11, 2018 1:00am nystatin 100 unt/mg topical powder (1 source) Polyene Antifungal Start: 07-11-2018 apply 613098 [IU] topically twice daily Nystatin Active 874603 UNIT TOPICAL Twice daily July 11, 2018 1:00am ondansetron 4 mg disintegrating oral tablet (3 sources) Serotonin-3 Receptor Antagonist Start: 06-28-2022 ondansetron ODT (ZOFRAN ODT) 4 mg disintegrating tablet Dissolve 1 tablet (4 mg total) on tongue 3 (three) times a day as needed for nausea for up to 3 doses. 3 tablet 0 06/28/2022 Active 24 hr oxybutynin chloride 10 mg extended release oral tablet (4 sources) Cholinergic Muscarinic Antagonist Start: 02-20-2024 take 10 mg by mouth once daily Oxybutynin Chloride Active 10 MG PO Daily February 20, 2024 12:00am Start: 03-04-2023 End: 02-27-2024 take 1 tablet by mouth every twenty-four hours in the morning oxybutynin XL (DITROPAN-XL) 10 mg 24 hr tablet TAKE 1 TABLET (10 MG TOTAL) BY MOUTH IN THE MORNING FOR 360 DAYS. 90 tablet 3 03/04/2023 02/27/2024 Active permethrin 50 mg/ml topical cream (3 sources) Pyrethroid Start: 12-26-2022 permethrin (ELIMITE) 5 % cream Apply to affected area once 60 g 0 12/26/2022 Active pilocarpine hydrochloride 5 mg oral tablet (6 sources) Cholinergic Receptor Agonist Start: 02-20-2024 take 5 mg by mouth once daily Pilocarpine Hcl Active 5 MG PO Daily February 20, 2024 12:00am Start: 05-25-2022 take 1 tablet by neal th three times daily pilocarpine (SALAGEN) 7.5 MG tablet Indications: Xerostomia TAKE 1 TABLET BY MOUTH THREE TIMES A DAY 270 tablet 1 05/25/2022 Suspended Start: 02-06-2019 take 1 tablet by neal th three times daily pilocarpine (SALAGEN) 5 MG tablet TAKE 1 TABLET BY MOUTH 3 TIMES A DAY 1 02/06/2019 Active polyethylene glycol 3350 76825 mg powder for oral solution (5 sources) Osmotic Laxative Start: 08-08-2019 polyethylene glycol (GLYCOLAX) packet DISSOLVE 1 PACKET IN 8 OZ OF FLUID AND DRINK EVERY OTHER DAY 527 g 2 08/08/2019 Active Start: 07-11-2018 take 17 g by mouth twice daily Polyethylene Glycol 3350 Active 17 GM PO Twice daily July 11, 2018 1:00am microencapsulated potassium chloride 20 meq extended release oral tablet (3 sources) Start: 03-17-2022 take 2 tablets by mouth twice daily KLOR-CON M20 20 mEq CR tablet TAKE 2 TABLETS BY MOUTH TWICE A DAY 360 tablet 4 03/17/2022 Active Semaglutide (1 source) Start: 02-20-2024 Semaglutide (Ozempic) 0.25 mg or 0.5 mg (2 mg/3 mL) pen injector Active MG SUBCUT February 20, 2024 12:00am SITagliptin 50 mg oral tablet (5 sources) Dipeptidyl Peptidase 4 Inhibitor Start: 08-21-2021 take 1 tablet by mouth in the morning JANUVIA 50 mg tablet Take 1 tablet (50 mg total) by mouth in the morning. 0 08/21/2021 Active Start: 07-11-2018 SITagliptin (J ANUVIA) 100 MG tablet Take 100 mg by mouth 0 07/11/2018 Active Completed/Discontinued Medications Medication Drug Class(es) Dates Sig (Normalized) Sig (Original) ferrous sulfate 325 mg delayed release oral tablet (1 source) take 1 tablet by mouth once daily at breakfast ferrous sulfate 325 (65 FE) mg EC tablet Take 1 tablet (325 mg total) by mouth daily with breakfast. Suspended ibuprofen 600 mg oral tablet (4 sources) Nonsteroidal Anti-inflammatory Drug Start: 03-22-2021 take 1 tablet by mouth every six hours as needed for pain ibuprofen (ADVIL,MOTRIN) 600 mg tablet Take 1 tablet (600 mg total) by mouth every 6 (six) hours as needed for pain. Please take with food 30 tablet 03/22/2021 Suspended magnesium oxide 400 mg oral tablet (4 sources) Start: 10-28-2022 take 1 tablet by mouth in the morning, then take 1 tablet by mouth at bedtime magnesium oxide (MAGOX) 400 mg tablet Indications: Edema, unspecified , Acute kidney injury (CMS-HCC) Take 1 tablet (400 mg total) by mouth in the morning and 1 tablet (400 mg total) before bedtime. 60 tablet 5 10/28/2022 Suspended omeprazole 20 mg delayed release oral capsule (6 sources) Proton Pump Inhibitor Start: 07-11-2018 take 1 tablet by mouth once daily omeprazole (PriLOSEC) 20 mg capsule Take 1 tablet by mouth daily. 07/10/2021 Suspended OZEMPIC 0.25 mg or 0.5 mg (2 mg/3 mL) pen injector (1 source) Start: 11-10-2023 OZEMPIC 0.25 mg or 0.5 mg (2 mg/3 mL) pen injector Inject 0.25 mg under the skin once a week. 11/10/2023 Suspended sucralfate 1000 mg oral tablet (6 sources) Aluminum Complex Start: 07-11-2018 take 1 tablet by mouth once daily sucralfate (CARAFATE) 1 gram tablet Take 1 tablet (1 g total) by mouth nightly. 06/04/2021 Suspended tamsulosin hydrochloride 0.4 mg oral capsule (4 sources) alpha-Adrenergic Alva Start: 01-26-2023 take 1 capsule by mouth in the morning tamsulosin (FLOMAX) 0.4 mg capsule Take 1 capsule (0.4 mg total) by mouth in the morning. 90 capsule 3 01/26/2023 Suspended torsemide 20 mg oral tablet (6 sources) Loop Diuretic Start: 05-19-2023 take 2 tablets by mouth once daily in the morning torsemide (DEMADEX) 20 mg tablet Indications: Edema, unspecified , Edema , Acute kidney injury (CMS-HCC) TAKE 2 (TWO) TABLET BY MOUTH EVERY MORNING 180 tablet 3 05/19/2023 Suspended Start: 07-11-2018 take 1 tablet by neal th once daily torsemide (DEMADEX) 20 MG tablet TAKE 1 TABLET BY MOUTH EVERY DAY 0 04/06/2019 Active Problems Active Problems Problem Classification Problem Date Documented Da te Episodic/Chronic Acute and unspecified renal failure (1 source) Mivjn-zr-yjoalvg renal failure; Translations: [Acute renal failure superimposed on chronic kidney disease] Onset: 9 01-05-2019 Chronic Acute and unspecified renal failure (11 sources) Acute injury of kidney; Translations: [Acute kidney failure, unspecified] Onset: 9 10-30-2018 Episodic Chronic kidney disease (2 sources) Chronic kidney disease; Translations: [Chronic kidney disease stage 3A ] Onset: 9 01-04-2020 Chronic Chronic kidney disease (3 sources) Chronic kidney disease; Translations: [Chronic kidney disease, stage 3b] Onset: 9 Diabetes mellitus with complications (10 sources) Diabetes mellitus; Translations: [Type 2 diabetes mellitus with diabetic peripheral angiopathy without gangrene] Onset: 7 02-17-2019 Chronic Diabetes mellitus without complication (7 sources) Type 2 diabetes mellitus without complication; Translations: [Diabetes mellitus] Onset: 7 01-04-2020 Chronic Disorders of lipid metabolism (4 sources) Hypertriglyceridemia; Translations: [Pure hyperglyceridemia] Onset: 4 02-20-2024 Chronic Esophageal disorders (5 sources) Gastroesophageal reflux disease without esophagitis; Translations: [Gastroesophageal reflux disease] Onset: 7 01-04-2020 Chronic Essential hypertension (4 sources) Essential hypertension; Translations: [Essential (primary) hypertension] Onset: 9 01-04-2020 Chronic Fluid and electrolyte disorders (1 source) Hypovolemia; Translations: [Hypovolemia] Onset: 4 Episodic Genitourinary symptoms and ill-defined conditions (5 sources) Urinary incontinence; Translations: [Unspecified urinary incontinence] Onset: 1 01-26-2023 Chronic Gout and other crystal arthropathies (1 source) Gout, unspecified; Translations: [GOUT UNSPECIFIED] Onset: 1 Chronic Lymphadenitis (1 source) Enlarged lymph nodes, unspecified; Translations: [Enlarged lymph nodes, unspecified] Onset: 4 Episodic Mood disorders (4 sources) Bipolar disorder; Translations: [Depressive disorder] Onset: 9 01-04-2020 Chronic Osteoarthritis (1 source) Osteoarthritis; Translations: [Unspecified osteoarthritis, unspecified site] Onset: 9 01-04-2020 Chronic Other aftercare (1 source) Other ferry terminal supervisor (current) drug therapy; Translations: [OTH RETIREMENT CURRENT DRUG THERAPY] Onset: 1 Episodic Other aftercare (1 source) 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; Translations: [POULTRY VETERINARIAN USE ORAL HYPOGLYCEMIC DX] Onset: 1 Episodic Other ear and sense organ disorders (1 source) Impacted cerumen, right ear; Translations: [Impacted cerumen, right ear] Onset: 4 Episodic Other gastrointestinal disorders (1 source) Heartburn; Translations: [Heartburn] Onset: 4 Episodic Other gastrointestinal disorders (1 source) Heartburn Onset: 4 Episodic Other non-traumatic joint disorders (3 sources) Pain in left ankle and joints of left foot; Translations: [PAIN IN LEFT ANKLE] Onset: 1 Episodic Other nutritional; endocrine; and metabolic disorders (5 sources) Severe obesity; Translations: [Morbid (severe) obesity due to excess calories] Onset: 9 01-05-2019 Chronic Other nutritional; endocrine; and metabolic disorders (4 sources) Morbid obesity; Translations: [Morbid (severe) obesity due to excess calories] Onset: 6 04-30-2016 Chronic Other nutritional; endocrine; and metabolic disorders (4 sources) Hypomagnesemia; Translations: [Hypomagnesemia] Onset: 3 04-04-2023 Chronic Other nutritional; endocrine; and metabolic disorders (1 source) Hypomagnesemia; Translations: [Hypomagnesemia] Onset: 3 Chronic Other screening for suspected conditions (not mental disorders or infectious disease) (2 sources) Encounter for screening, unspecified; Translations: [Encounter for screening for malignant neoplasm of prostate] Onset: 4 Episodic Peripheral and visceral atherosclerosis (5 sources) Peripheral vascular disease; Translations: [Peripheral vascular disease, unspecified] Onset: 9 01-05-2019 Chronic Residual codes; unclassified (1 source) Sleep apnea; Translations: [Sleep apnea, unspecified] Onset: 6 01-04-2020 Chronic Residual codes; unclassified (4 sources) Obstructive sleep apnea syndrome; Translations: [Obstructive sleep apnea (adult) (pediatric)] Onset: 6 10-30-2018 Chronic Residual codes; unclassified (1 source) Edema; Translations: [Edema, unspecified] 03-13-2024 Episodic Screening and history of mental health and substance abuse codes (1 source) Tobacco use and exposure - finding; Translations: [History of tobacco use] Onset: 6 01-05-2019 Chronic Spondylosis; intervertebral disc disorders; other back problems (1 source) Cervical spondylosis without myelopathy; Translations: [Spondylosis without myelopathy or radiculopathy, cervical region] Onset: 9 01-04-2020 Chronic Suicide and intentional self-inflicted injury (3 sources) Suicidal thoughts; Translations: [Suicidal ideations] Onset: 4 02-20-2024 Episodic Syncope (3 sources) Near syncope; Translations: [Syncope and collapse] Onset: 4 03-14-2024 Episodic Unclassified (1 source) Cerumen Impaction Onset: 4 Unclassified (1 source) POST-OP VISIT Onset: 4 Unclassified (1 source) Earache Onset: 4 Unclassified (1 source) Medical Screening Onset: 4 Unclassified (1 source) Patient's other noncompliance with medication regimen for other reason; Translations: [Patient's other noncompliance with medication regimen for other reason] Onset: 4 Unclassified (1 source) High Blood Sugar - Symptomatic Onset: 4 Unclassified (1 source) Wound Check Onset: 4 Unclassified (1 source) High Blood Sugar - No Symptoms Onset: 4 Past or Other Problems Problem Classification Problem Date Documented Da te Episodic/Chronic Complications of surgical procedures or medical care (3 sources) Non-healing surgical wound; Translations: [Other complications of procedures, not elsewhere classified, initial encounter] Onset: 09-22-2023 09-22-2023 Episodic Deficiency and other anemia (5 sources) Anemia; Translations: [Anemia, unspecified] Onset: 10-30-2018 01-05-2019 Episodic Diabetes mellitus without complication (5 sources) Hyperglycemia; Translations: [Hyperglycemia, unspecified] Onset: 04-02-2023 04-03-2023 Episodic Diseases of mouth; excluding dental (4 sources) Xerostomia; Translations: [Disturbances of salivary secretion] Onset: 02-10-2022 02-10-2022 Episodic Mood disorders (4 sources) Mood disorders Onset: 03-27-2021 03-27-2021 Other aftercare (1 source) Encounter for other specified aftercare; Translations: [Encounter for other specified aftercare] Onset: 09-14-2023 Episodic Other circulatory disease (4 sources) Low blood pressure; Translations: [Hypotension, unspecified] Onset: 11-27-2018 11-27-2018 Episodic Other circulatory disease (1 source) Hypotension, unspecified; Translations: [Hypotension, unspecified] Onset: 11-27-2018 Episodic Other ear and sense organ disorders (5 sources) Excessive cerumen in ear canal ; Translations: [Impacted cerumen, bilateral] Onset: 09-21-2017 01-05-2019 Episodic Other gastrointestinal disorders (6 sources) Dysphagia; Translations: [Other dysphagia] Onset: 03-24-2017 01-04-2020 Episodic Other lower respiratory disease (5 sources) Restrictive lung disease; Translations: [Other disorders of lung] Onset: 04-30-2016 01-05-2019 Episodic Other lower respiratory disease (1 source) Shortness of breath; Translations: [Shortness of breath] Onset: 08-31-2023 Episodic Other male genital disorders (7 sources) Phimosis; Translations: [Phimosis] Onset: 10-22-2020 06-02-2023 Episodic Other male genital disorders (2 sources) Phimosis; Translations: [Phimosis] Onset: 09-28-2023 Episodic Other upper respiratory disease (4 sources) Nasal mucosa dry; Translations: [Other specified disorders of nose and nasal sinuses] Onset: 08-20-2022 08-20-2022 Episodic Residual codes; unclassified (1 source) Other specified postprocedural states; Translations: [Other specified postprocedural states] Onset: 09-22-2023 Episodic Screening and history of mental health and substance abuse codes (5 sources) Personal history of nicotine dependence; Translations: [Tobacco use and exposure - finding] Onset: 04-30-2016 04-30-2016 Episodic Skin and subcutaneous tissue infections (10 sources) Cellulitis of lower leg; Translations: [Cellulitis of left lower limb] Onset: 10-30-2018 01-05-2019 Episodic Results Test Name Value Interpretation Reference Range Facility BASIC METABOLIC PANLon 03-17 Anion gap [Moles/Vol] 11 mmol/L Normal 5-15 [place] Comment on above: Performed By: #### RUSSELL Haque MP, 718-7 #### [facility] ([id number]) [address], [address] [place] [address] Calcium [Mass/Vol] 10.5 mg/dL Normal 8.5-10.5 [facility] Comment on above: Performed By: #### RUSSELL Haque MP, 718-7 #### [facility] ([id number]) [address], [address] [place] [address] Chloride [Moles/Vol] 106 mmol/L Normal 98-109 [facility] Comment on above: Performed By: #### RUSSELL Haque MP, 718-7 #### [facility] ([id number]) [address], [address] [place] [address] CO2 [Moles/Vol] 22 mmol/L Normal 22-32 [facility] Comment on above: Performed By: #### RUSSELL Haque MP, 718-7 #### [facility] ([id number]) [address], [address] [place] [address] Creatinine [Mass/Vol] 1.93 mg/dL High 0.60-1.30 [place] Comment on above: Result Comment: METH OD TRACEABLE TO IDMS STANDARD Performed By: #### RUSSELL Haque MP, 718-7 #### [facility] ([id number]) [address] [address] [place] [address] GFR/1.73 sq M.predicted among non-blacks MDRD (S/P/Bld) [Vol rate/Area] 39 mL/min/{1.73_m2} Low >59 [facility] Comment on above: Result Comment: Reported eGFR is based on the CKD-EPI 2020 equation that does not use a race coefficient. Performed By: #### RUSSELL Haque MP 718-7 #### [facility] ([id number]) [address] [address] [place] [address] Glucose [Mass/Vol] 86 mg/dL Normal 65-99 [facility] Comment on above: Performed By: #### RUSSELL Haque MP 718-7 #### [facility] ([id number]) [address] [address] [place] [address] Potassium [Moles/Vol] 4.5 mmol/L Normal 3.5-5.0 [place] Comment on above: Performed By: #### RUSSELL Haque MP 718-7 #### [facility] ([id number]) [address] [address] [place] [address] Sodium [Moles/Vol] 139 mmol/L Normal 134-146 [facility] Comment on above: Performed By: #### RUSSELL Haque MP 718-7 #### [facility] ([id number]) [address] [address] [place] [address] Urea nitrogen [Mass/Vol] 19 mg/dL Normal 5-27 [facility] Comment on above: Performed By: #### RUSSELL Haque MP 718-7 #### [facility] ([id number]) [address] [address] [place] [address] CBC AND AUTO DIFFon 10-23-20 24 ABSOLUTE BASOPHIL 0.0 X10E9/L Normal 0.0-0.2 [facility] Comment on above: Performed By: #### RUSSELL Haque MP, 718-7 #### [facility] ([id number]) [address], [address] [place] [address] ABSOLUTE NEUTROPHIL 4.6 X10E9/L Normal 1.5-6.6 [facility] Comment on above: Performed By: #### RUSSELL Haque MP, 718-7 #### [facility] ([id number]) [address] [place] [address] Basophils/100 WBC (Bld) 0.5 % Normal P [facility] Comment on above: Performed By: #### RUSSELL Haque MP 718-7 #### [facility] ([id number]) [address] [place] [address] Eosinophils (Bld) [#/Vol] 0.3 10*3/uL Normal 0.0-0.4 [facility] Comment on above: Performed By: #### RUSSELL Haque MP, 718-7 #### [facility] ([id number]) [address] [place] [address] Eosinophils/100 WBC (Bld) 3.9 % Normal [facility] Comment on above: Performed By: #### RUSSELL Haque MP 718-7 #### [facility] ([id number]) [address] [place] [address] Erythrocyte distribution width (RBC) [Ratio] 17.0 % High 11.5-15.0 [facility] Comment on above: Performed By: #### RUSSELL Haque MP, 718-7 #### [facility] ([id number]) [address], [address] [place] [address] Hematocrit (Bld) [Volume fraction] 33.3 % Low 39-49 [facility] Comment on above: Performed By: #### RUSSELL Haque MP, 718-7 #### [facility] ([id number]) [address] [address] [place] [address] Hemoglobin (Bld) [Mass/Vol] 11.0 g/dL Low 13.0-17.0 [facility] Comment on above: Performed By: #### RUSSELL Haque MP, 718-7 #### [facility] ([id number]) [address], [facility] [address] [place] [address] Lymphocytes (Bld) [#/Vol] 2.2 10*3/uL Normal 1.0-3.5 [facility] Comment on above: Performed By: #### RUSSELL Haque MP 718-7 #### [facility] ([id number]) [address] [address] [place] [address] Lymphocytes/100 WBC (Bld) 29.2 % Normal [facility] Comment on above: Performed By: #### RUSSELL Haque MP, 718-7 #### [facility] ([id number]) [address], [facility] [address] [place] [address] MCH (RBC) [Entitic mass] 27.1 pg Normal 27-34 [facility] Comment on above: Performed By: #### RUSSELL Haque MP 718-7 #### [facility] ([id number]) [address] [address] [place] [address] MCHC (RBC) [Mass/Vol] 33.1 g/dL Normal 32-36 [place] Comment on above: Performed By: #### RUSSELL Haque MP, 71-7 #### [facility] ([id number]) [address] [address] [place] [address] MCV (RBC) [Entitic vol] 82 fL Normal 80-100 P [facility] Comment on above: Performed By: #### RUSSELL Haque MP 717 #### [facility] ([id number]) [address], [address] [place] [address] Monocytes (Bld) [#/Vol] 0.4 10*3/uL Normal 0-0.9 [facility] Comment on above: Performed By: #### RUSSELL Haque MP, 718-7 #### [facility] ([id number]) [address], [address] [place] [address] Monocytes/100 WBC (Bld) 5.8 % Normal [facility] Comment on above: Performed By: #### RUSSELL Haque MP, 718-7 #### [facility] ([id number]) [address], [address] [place] [address] Neutrophils/100 WBC (Bld) 60.6 % Normal [facility] Comment on above: Performed By: #### RUSSELL Haque MP, 718-7 #### [facility] ([id number]) [address], [address] [place] [address] Platelet mean volume (Bld) [Entitic vol] 8.5 fL Normal 7-12 [facility] Comment on above: Performed By: #### RUSSELL Haque MP, 718-7 #### [facility] ([id number]) [address], [address] [place] [address] Platelets (Bld) [#/Vol] 178 10*3/uL Normal 150-450 [facility] Comment on above: Performed By: #### RUSSELL Haque MP, 718-7 #### [facility] ([id number]) [address], [address] [place] [address] RBC COUNT 4.06 X10E12/L Low 4.10-5.70 [facility] Comment on above: Performed By: #### RUSSELL Haque MP, 718-7 #### [facility] ([id number]) [address], [address] [place] [address] WBC (Bld) [#/Vol] 7.6 10*3/uL Normal 4.0-11.0 [facility] Comment on above: Performed By: #### RUSSELL Haque MP, 718-7 #### [facility] ([id number]) [address], [address] [place] [address] COMPREHENSIVE METABOLIC PANE Abram 03-15-2024 Albumin [Mass/Vol] 3.5 g/dL Normal 3.2-5.3 [facility] Comment on above: Performed By: #### RUSSELL Haque MP, 718-7 #### [facility] ([id number]) [address], [address] [place] [address] ALP [Catalytic activity/Vol] 102 U/L Normal 39-130 [facility] Comment on above: Performed By: #### RUSSELL Haque MP, 718-7 #### [facility] ([id number]) [address], [address] [place] [address] ALT [Catalytic activity/Vol] 22 U/L Normal 0-40 [facility] Comment on above: Performed By: #### RUSSELL Haque MP, 718-7 #### [facility] ([id number]) [address], [address] [place] [address] Anion gap [Moles/Vol] 7 mmol/L Normal 5-15 [place] Comment on above: Performed By: #### RUSSELL Haque MP, 718-7 #### [facility] ([id number]) [address], [address] [place] [address] AST [Catalytic activity/Vol] 22 U/L Normal 0-41 [facility] Comment on above: Performed By: #### RUSSELL Haque MP, 718-7 #### [facility] ([id number]) [address], [address] [place] [address] Bilirubin [Mass/Vol] 0.5 mg/dL Normal 0.3-1.2 [facility] Comment on above: Performed By: #### RUSSELL Haque MP 718-7 #### [facility] ([id number]) [address], [address] [place] [address] Calcium [Mass/Vol] 8.6 mg/dL Normal 8.5-10.5 [facility] Comment on above: Performed By: #### B RUSSELL CHANDRA 718-7 #### [facility] ([id number]) [address], [facility] [address] [place] [address] Chloride [Moles/Vol] 110 mmol/L High 98-109 [facility] Comment on above: Performed By: #### RUSSELL Haque MP 718-7 #### [facility] ([id number]) [address], [address] [place] [address] CO2 [Moles/Vol] 21 mmol/L Low 22-32 [facility] Comment on above: Performed By: #### RUSSELL Haque MP 718-7 #### [facility] ([id number]) [address], [facility] [address] [place] [address] Creatinine [Mass/Vol] 1.98 mg/dL High 0.70-1.20 [place] Comment on above: Result Comment: METH OD TRACEABLE TO IDMS STANDARD Performed By: #### RUSSELL Haque MP 718-7 #### [facility] ([id number]) [address] [address] [place] [address] GFR/1.73 sq M.predicted among non-blacks MDRD (S/P/Bld) [Vol rate/Area] 38 mL/min/{1.73_m2} Low >59 [facility] Comment on above: Result Comment: Reported eGFR is based on the CKD-EPI 2020 equation that does not use a race coefficient. Performed By: #### B PRATEEK, PINR, 718-7 #### [facility] ([id number]) [address], [address] [place] [address] Glucose [Mass/Vol] 91 mg/dL Normal 65-99 [facility] Comment on above: Performed By: #### RUSSELL Haque MP, 718-7 #### [facility] ([id number]) [address], [address] [place] [address] Potassium [Moles/Vol] 3.9 mmol/L Normal 3.5-5.0 [place] Comment on above: Performed By: #### RUSSELL Haque MP 718-7 #### [facility] ([id number]) [address], [address] [place] [address] Protein [Mass/Vol] 6.7 g/dL Normal 6.0-8.0 [facility] Comment on above: Performed By: #### RUSSELL Haque MP, 718-7 #### [facility] ([id number]) [address], [address] [place] [address] Sodium [Moles/Vol] 138 mmol/L Normal 134-146 [facility] Comment on above: Performed By: #### RUSSELL Haque MP 718-7 #### [facility] ([id number]) [address], [address] [place] [address] Urea nitrogen [Mass/Vol] 31 mg/dL High 5-27 [facility] Comment on above: Performed By: #### RUSSELL Haque MP, 718-7 #### [facility] ([id number]) [address], [address] [place] [address] MAGNESIUMon 03-15-2024 Magnesium [Mass/Vol] 1.8 mg/dL Normal 1.8-2.6 [facility] Comment on above: Performed By: #### RUSSELL Haque MP, 718-7 #### [facility] ([id number]) [address], [address] [place] [address] BASIC METABOLIC PANLon 03-14 Anion gap [Moles/Vol] 13 mmol/L Normal 5-15 [place] Comment on above: Performed By: #### RUSSELL Haque MP 718-7 #### [facility] ([id number]) [address], [address] [place] [address] Calcium [Mass/Vol] 8.5 mg/dL Normal 8.5-10.5 [facility] Comment on above: Performed By: #### RUSSELL Haque MP 718-7 #### [facility] ([id number]) [address], [address] [place] [address] Chloride [Moles/Vol] 105 mmol/L Normal 98-109 [facility] Comment on above: Performed By: #### RUSSELL Haque MP 718-7 #### [facility] ([id number]) [address], [address] [place] [address] CO2 [Moles/Vol] 20 mmol/L Low 22-32 [facility] Comment on above: Performed By: #### RUSSELL Haque MP 718-7 #### [facility] ([id number]) [address], [address] [place] [address] Creatinine [Mass/Vol] 3.00 mg/dL High 0.70-1.20 [place] Comment on above: Result Comment: METH OD TRACEABLE TO IDMS STANDARD Performed By: #### RUSSELL Haque MP 718-7 #### [facility] ([id number]) [address], [address] [place] [address] GFR/1.73 sq M.predicted among non-blacks MDRD (S/P/Bld) [Vol rate/Area] 23 mL/min/{1.73_m2} Low >59 [facility] Comment on above: Result Comment: Reported eGFR is based on the CKD-EPI 2020 equation that does not use a race coefficient. Performed By: #### B RUSSELL CHANDRA 718-7 #### [facility] ([id number]) [address], [address] [place] [address] Glucose [Mass/Vol] 120 mg/dL High 65-99 [facility] Comment on above: Performed By: #### RUSSELL Haque MP 718-7 #### [facility] ([id number]) [address], [facility] [address] [place] [address] Potassium [Moles/Vol] 3.5 mmol/L Normal 3.5-5.0 [place] Comment on above: Performed By: #### RUSSELL Haque MP 718-7 #### [facility] ([id number]) [address], [address] [place] [address] Sodium [Moles/Vol] 138 mmol/L Normal 134-146 [facility] Comment on above: Performed By: #### RUSSELL Haque MP 718-7 #### [facility] ([id number]) [address], [address] [place] [address] Urea nitrogen [Mass/Vol] 47 mg/dL High 5-27 [facility] Comment on above: Performed By: #### RUSSELL Haque MP 718-7 #### [facility] ([id number]) [address], [address] [place] [address] Glucose Glucometer (BldC) [M ass/Vol]on 03-14-2024 Glucose [Mass/Vol] 127 mg/dL High 65-99 [facility] Glucose [Mass/Vol] 202 mg/dL High 65-99 [facility] Glucose [Mass/Vol] 177 mg/dL High 65-99 [facility] Glucose [Mass/Vol] 102 mg/dL High 65-99 [facility] POTASSIUMon 03-14-2024 Potassium [Moles/Vol] 4.1 mmol/L Normal 3.5-5.0 [place] Comment on above: Performed By: #### B PRATEEK, MARLENR, 718-7 #### [facility] ([id number]) [address], [address] [place] [address] CBC AND AUTO DIFFon 03-13-20 ABSOLUTE BASOPHIL 0.1 X10E9/L Normal 0.0-0.2 [facility] Comment on above: Performed By: #### 2 4331-1, CMP, 3016-3, CBCA, 2857-1 #### [facility] ([id number]) [address], [address] [place] [address] ABSOLUTE NEUTROPHIL 5.2 X10E9/L Normal 1.5-6.6 [facility] Comment on above: Performed By: #### 2 4331-1, CMP, 3016-3, CBCA, 2857-1 #### [facility] ([id number]) [address], [address] [place] [address] Basophils/100 WBC (Bld) 1.0 % Normal [facility] Comment on above: Performed By: #### 2 4331-1, CMP, 3016-3, CBCA, 2857-1 #### [facility] ([id number]) [address], [address] [place] [address] Eosinophils (Bld) [#/Vol] 0.3 10*3/uL Normal 0.0-0.4 [facility] Comment on above: Performed By: #### 2 4331-1, CMP, 3016-3, CBCA, 2857-1 #### [facility] ([id number]) [address], [address] [place] [address] Eosinophils/100 WBC (Bld) 3.5 % Normal [facility] Comment on above: Performed By: #### 2 4331-1, CMP, 3016-3, CBCA, 2857-1 #### [facility] ([id number]) [address] [address] [place] [address] Erythrocyte distribution width (RBC) [Ratio] 17.3 % High 11.5-15.0 [facility] Comment on above: Performed By: #### 2 4331-1, CMP, 3016-3, CBCA, 2857-1 #### [facility] ([id number]) [address] [address] Hematocrit (Bld) [Volume fraction] 34.0 % Low 39-49 [facility] Comment on above: Performed By: #### 2 4331-1, CMP, 3016-3, CBCA, 2857-1 #### [facility] ([id number]) [address] [address] Hemoglobin (Bld) [Mass/Vol] 11.2 g/dL Low 13.0-17.0 [facility] Comment on above: Performed By: #### 2 4331-1, CMP, 3016-3, CBCA, 2857-1 #### [facility] ([id number]) [address] [address] Lymphocytes (Bld) [#/Vol] 2.9 10*3/uL Normal 1.0-3.5 [facility] Comment on above: Performed By: #### 2 4331-1, CMP, 3016-3, CBCA, 2857-1 #### [facility] ([id number]) [address] [address] Lymphocytes/100 WBC (Bld) 32.4 % Normal [facility] Comment on above: Performed By: #### 2 4331-1, CMP, 3016-3, CBCA, 2857-1 #### [facility] ([id number]) [address] [place] [address] MCH (RBC) [Entitic mass] 26.9 pg Low 27-34 [facility] Comment on above: Performed By: #### 2 4331-1, CMP, 3016-3, CBCA, 2857-1 #### [facility] ([id number]) [address], [facility] [address] [place] [address] MCHC (RBC) [Mass/Vol] 32.9 g/dL Normal 32-36 [place] Comment on above: Performed By: #### 2 4331-1, CMP, 3016-3, CBCA, 2857-1 #### [facility] ([id number]) [address], [facility] [address] [place] [address] MCV (RBC) [Entitic vol] 82 fL Normal 80-100 [facility] Comment on above: Performed By: #### 2 4331-1, CMP, 3016-3, CBCA, 2857-1 #### [facility] ([id number]) [address] [address] [place] [address] Monocytes (Bld) [#/Vol] 0.5 10*3/uL Normal 0-0.9 [facility] Comment on above: Performed By: #### 2 4331-1, CMP, 3016-3, CBCA, 2857-1 #### [facility] ([id number]) [address] [address] [place] [address] Monocytes/100 WBC (Bld) 5.2 % Normal P [facility] Comment on above: Performed By: #### 2 4331-1, CMP, 3016-3, CBCA, 2857-1 #### [facility] ([id number]) [address] [address] [place] [address] Neutrophils/100 WBC (Bld) 57.9 % Normal [facility] Comment on above: Performed By: #### 2 4331-1, CMP, 3016-3, CBCA, 2857-1 #### [facility] ([id number]) [address] [place] [address] Platelet mean volume (Bld) [Entitic vol] 8.3 fL Normal 7-12 [facility] Comment on above: Performed By: #### 2 4331-1, CMP, 3016-3, CBCA, 2857-1 #### [facility] ([id number]) [address] [place] [address] Platelets (Bld) [#/Vol] 196 10*3/uL Normal 150-450 [facility] Comment on above: Performed By: #### 2 4331-1, CMP, 3016-3, CBCA, 2857-1 #### [facility] ([id number]) [address] [place] [address] RBC COUNT 4.16 X10E12/L Normal 4.10-5.70 [facility] Comment on above: Performed By: #### 2 4331-1, CMP, 3016-3, CBCA, 2857-1 #### [facility] ([id number]) [address] [place] [address] WBC (Bld) [#/Vol] 9.0 10*3/uL Normal 4.0-11.0 [facility] Comment on above: Performed By: #### 2 4331-1, CMP, 3016-3, CBCA, 2857-1 #### [facility] ([id number]) [address] [place] [address] COMPREHENSIVE METABOLIC PANE Abram 03-13-2024 Albumin [Mass/Vol] 3.6 g/dL Normal 3.2-5.3 [facility] Comment on above: Performed By: #### 2 4331-1, CMP, 3016-3, CBCA, 2857-1 #### [facility] ([id number]) [address] [place] [address] ALP [Catalytic activity/Vol] 106 U/L Normal 39-130 [facility] Comment on above: Performed By: #### 2 4331-1, CMP, 3016-3, CBCA, 2857-1 #### [facility] ([id number]) [address] [place] [address] ALT [Catalytic activity/Vol] 23 U/L Normal 0-40 [facility] Comment on above: Performed By: #### 2 4331-1, CMP, 3016-3, CBCA, 2857-1 #### [facility] ([id number]) [address] [place] [address] Anion gap [Moles/Vol] 14 mmol/L Normal 5-15 [place] Comment on above: Performed By: #### 2 4331-1, CMP, 3016-3, CBCA, 2857-1 #### [facility] ([id number]) [address] [place] [address] AST [Catalytic activity/Vol] 31 U/L Normal 0-41 [facility] Comment on above: Performed By: #### 2 4331-1, CMP, 3016-3, CBCA, 2857-1 #### [facility] ([id number]) [address] [place] [address] Bilirubin [Mass/Vol] 0.4 mg/dL Normal 0.3-1.2 [facility] Comment on above: Performed By: #### 2 4331-1, CMP, 3016-3, CBCA, 2857-1 #### [facility] ([id number]) [address] [place] [address] Calcium [Mass/Vol] 8.8 mg/dL Normal 8.5-10.5 [facility] Comment on above: Performed By: #### 2 4331-1, CMP, 3016-3, CBCA, 2857-1 #### [facility] ([id number]) [address] [place] [address] Chloride [Moles/Vol] 102 mmol/L Normal 98-109 [facility] Comment on above: Performed By: #### 2 4331-1, CMP, 3016-3, CBCA, 2857-1 #### [facility] ([id number]) [address] [place] [address] CO2 [Moles/Vol] 20 mmol/L Low 22-32 [facility] Comment on above: Performed By: #### 2 4331-1, [facility], 3016-3, CBCA, 2857-1 #### [facility] ([id number]) [address] [place] [address] Creatinine [Mass/Vol] 3.44 mg/dL High 0.70-1.20 [place] Comment on above: Result Comment: METH OD TRACEABLE TO IDMS STANDARD Performed By: #### 2 4331-1, [facility], 3016-3, CBCA, 2857-1 #### [facility] ([id number]) [address] [place] [address] GFR/1.73 sq M.predicted among non-blacks MDRD (S/P/Bld) [Vol rate/Area] 19 mL/min/{1.73_m2} Low >59 [facility] Comment on above: Result Comment: Reported eGFR is based on the CKD-EPI 2020 equation that does not use a race coefficient. Performed By: #### 2 4331-1, CMP, 3016-3, CBCA, 2857-1 #### [facility] ([id number]) [address] [place] [address] Glucose [Mass/Vol] 152 mg/dL High 65-99 [facility] Comment on above: Performed By: #### 2 4331-1, CMP, 3016-3, CBCA, 2857-1 #### [facility] ([id number]) [address], [address] [place] [address] Potassium [Moles/Vol] 3.8 mmol/L Normal 3.5-5.0 [place] Comment on above: Performed By: #### 2 4331-1, CMP, 3016-3, CBCA, 2857-1 #### [facility] ([id number]) [address] [place] [address] Protein [Mass/Vol] 7.2 g/dL Normal 6.0-8.0 [facility] Comment on above: Performed By: #### 2 4331-1, CMP, 3016-3, CBCA, 2857-1 #### [facility] ([id number]) [address] [place] [address] Sodium [Moles/Vol] 136 mmol/L Normal 134-146 [facility] Comment on above: Performed By: #### 2 4331-1, CMP, 3016-3, CBCA, 2857-1 #### [facility] ([id number]) [address] [place] [address] Urea nitrogen [Mass/Vol] 48 mg/dL High 5-27 [facility] Comment on above: Performed By: #### 2 4331-1, CMP, 3016-3, CBCA, 2857-1 #### [facility] ([id number]) [address], [address] [place] [address] MAGNESIUMon 03-13-2024 Magnesium [Mass/Vol] 1.5 mg/dL Low 1.8-2.6 [facility] Comment on above: Performed By: #### 2 4331-1, CMP, 3016-3, CBCA, 2857-1 #### [facility] ([id number]) [address], [address] [place] [address] PROTIME AND INRon 03-13-2024 INR Coag (PPP) [Relative time] 1.2 {INR} High 0.8-1.1 [facility] Comment on above: Performed By: #### 2 4331-1, CMP, 3016-3, CBCA, 2857-1 #### [facility] ([id number]) [address] [place] [address] PT Coag (PPP) [Time] 14.1 s High 9.8-13.2 [facility] Comment on above: Result Comment: NEW REFERENCE RANGE Performed By: #### 2 4331-1, CMP, 3016-3, CBCA, 2857-1 #### [facility] ([id number]) [address] [place] [address] Troponin I.cardiac High sens itivity method [Mass/Vol]on 03-13-2024 1 HOUR TROP I, HIGH SENSITIVITY 5 ng/L Normal <21 [facility] Comment on above: Performed By: #### 2 4331-1, CMP, 3016-3, CBCA, 2857-1 #### [facility] ([id number]) [address] [place] [address] TROPONIN I, HIGH SENSITIVITY 4 ng/L Normal <21 [facility] Comment on above: Performed By: #### 2 4331-1, CMP, 3016-3, CBCA, 2857-1 #### [facility] ([id number]) [address] [place] [address] XR CHEST 1 VWon 03-13-2024 XR CHEST 1 VW XR CHEST 1 VW XR CHEST 1 VW HISTORY: Syncope, dizziness COMPARISON: Chest x-ray 01/24/2024 FINDINGS: Cardiomediastinal silhouette is unremarkable appearing. Pulmonary vasculature is within normal limits. Streaky right basilar airspace opacities, favor atelectasis. There is no pleural effusion or pneumothorax. The trachea is midline. IMPRESSION: * Probable right basilar atelectasis, otherwise no acute cardiopulmonary process. Approved by Resident Yani Sutton DO on 03/13/2024 11:54 PM IRickey MD have personally reviewed the image(s) and agree with and/or edited the report Finalized by Rickey Nguyen MD on 03/13/2024 11:56 PM Normal [facility] aPTT Coag (PPP) [Time]on aPTT Coag (Bld) [Time] 34 s Normal 26-37 [facility] Comment on above: Result Comment: NEW REFERENCE RANGE Performed By: #### 2 4331-1, CMP, 3016-3, CBCA, 2857-1 #### [facility] ([id number]) [address] [place] [address] Capillary blood glucose nahed urement by glucometer (mass/volume)Ordered By: Timbo Boland on 02-22-2024 Glucose [Mass/Vol] 131 mg/dL Normal [facility] Comment on above: Random Glucose Refer ence Range is dependent on time and content of last meal. Glucose of more than 200 mg/dL in a nonstressed, ambulatory subject supports the diagnosis of Diabetes Mellitus. Result Comment: Lorimor Glucose Reference Range is dependent on time and content of last meal. Glucose of more than 200 mg/dL in a nonstressed, ambulatory subject supports the diagnosis of Diabetes Mellitus. PERFORMED BY: [facility] [address] [place] [address] PATHOLOGIST [employer] SPECIALIST TERRY GIBBS M.D. Performed By: #### G LULS #### Point of Care testing , Glucose Poct Glucometerson 0 02-21-2024 Commemt1 Glu2: Cleaned Meter Normal [facility] Comment on above: Result Comment: PERF ORMED BY: [facility] [address] [place] [address] PATHOLOGIST [employer] SPECIALIST TERRY GIBBS M.D. Performed By: #### G LULS #### Point of Care testing , Glucose [Mass/Vol] 271 mg/dL Normal [facility] Comment on above: Result Comment: Lorimor om Glucose Reference Range is dependent on time and content of last meal. Glucose of more than 200 mg/dL in a nonstressed, ambulatory subject supports the diagnosis of Diabetes Mellitus. Performed By: #### G LULS #### Point of Care testing , Commemt1 Glu2: Cleaned Meter Normal [facility] Comment on above: Result Comment: PERF ORMED BY: [place] [address] PATHOLOGIST [employer] SPECIALIST TERRY GIBBS M.D. Performed By: #### G LULS #### Point of Care testing , Glucose [Mass/Vol] 152 mg/dL Normal [facility] Comment on above: Result Comment: [place]im[place] om Glucose Reference Range is dependent on time and content of last meal. Glucose of more than 200 mg/dL in a nonstressed, ambulatory subject supports the diagnosis of Diabetes Mellitus. Performed By: #### G LULS #### Point of Care testing , No Panel InformationOrdered By: Timbo Boland on 02-21-2024 Bedside Glucose Comment Glu2: cleaned meter [facility] A1C with Estimated Average G mynorn 02-20-2024 Glucose [Mass/Vol] 246 mg/dL Normal [facility] Comment on above: Result Comment: PERF ORMED BY: [place] [address] PATHOLOGIST [employer] SPECIALIST TERRY GIBBS M.D. Performed By: #### A 1C [facility] eA #### [address] Cholesterol [Mass/volume] in Serum or PlasmaOrdered By: Timbo Boland on 02-20-2024 Cholesterol [Mass/Vol] 144 mg/dL Normal 140-200 [facility] Comment on above: Chol less than 200 m g/dl low riskChol 201-239 mg/dl borderline riskChol 240 mg/dl and greater high risk Result Comment: Chol less than 200 mg/dl low risk Chol 201-239 mg/dl borderline risk Chol 240 mg/dl and greater high risk Performed By: #### V [id number], TSH3 wRFLX, LIPID #### [facility] [address] Cholesterol in LDL Calc [Mas s/Vol]Ordered By: Timbo Boland on 02-20-2024 Cholesterol in LDL [Mass/Vol] 53 mg/dL 0-100 [facility] Comment on above: LDL ATP III CLASSIFI CATIONLDL less than 100 mg/dL OptimalLDL 100-129 mg/dL Near or above optimalLDL 130-159 mg/dL Borderline highLDL 160-189 mg/dL HighLDL greater than 189 mg/dL Very high Cholesterol in VLDL Calc [Ma ss/Vol]Ordered By: Timbo Boland on 02-20-2024 Cholesterol in VLDL [Mass/Vol] 69 mg/dL [facility] Glucose Poct Glucometerson 0 02-20-2024 Commemt1 Glu2: Cleaned Meter Normal [facility] Comment on above: Result Comment: PERF ORMED BY: [facility] [address] [place] [address] PATHOLOGIST [employer] SPECIALIST TERRY GIBBS M.D. Performed By: #### G LULS #### Point of Care testing , Glucose [Mass/Vol] 264 mg/dL Normal [facility] Comment on above: Result Comment: Lorim[place] om Glucose Reference Range is dependent on time and content of last meal. Glucose of more than 200 mg/dL in a nonstressed, ambulatory subject supports the diagnosis of Diabetes Mellitus. Performed By: #### G LULS #### Point of Care testing , Glucose [Mass/Vol] 232 mg/dL Normal [facility] Comment on above: Result Comment: [place] om Glucose Reference Range is dependent on time and content of last meal. Glucose of more than 200 mg/dL in a nonstressed, ambulatory subject supports the diagnosis of Diabetes Mellitus. PERFORMED BY: [place] [address] PATHOLOGIST [employer] SPECIALIST TERRY GIBBS M.D. Performed By: #### G LULS #### Point of Care testing , Glucose mean value [Mass/vol ume] in Blood Estimated from glycated hemoglobinOrdered By: Timbo Boland on 02-20-2024 Average glucose Estimated from glycated hemoglobin (Bld) [Mass/Vol] 246 mg/dL [facility] Hemoglobin A1c percentageOrd ered By: Timbo Boland on 02-20-2024 HbA1c (Bld) [Mass fraction] 10.2 % High 4.3-5.6 [facility] Comment on above: Increased risk for d iabetes: 5.7 - 6.4diabetes: >6.4glycemic control for adults with diabetes: <7.0 Result Comment: Incr eased risk for diabetes: 5.7 - 6.4 diabetes: >6.4 glycemic control for adults with diabetes: <7.0 Performed By: #### A 1C WT eA #### [address] Lipid Panelon 02-20-2024 LDL Cholesterol,Calculated 53 mg/dL Normal 0-100 [facility] Comment on above: Result Comment: LDL ATP III CLASSIFICATION LDL less than 100 mg/dL Optimal LDL 100-129 mg/dL Near or above optimal LDL 130-159 mg/dL Borderline high LDL 160-189 mg/dL High LDL greater than 189 mg/dL Very high Performed By: #### V [id number], TSH3 wRFLX, LIPID #### [address] Triglyceride w/Reflex 346 mg/dL High 0-149 [facility] Comment on above: Result Comment: TRIG ATP III CLASSIFICATION TRIG less than 150 mg/dL Normal TRIG 150-199 mg/dL Borderline high TRIG 200-500 mg/dL High TRIG greater than 500 mg/dL Very high Standard traceable to the Center for Disease Conrtrol and Prevention (CDC) test method. Performed By: #### V [id number], TSH3 wRFLX, LIPID #### [facility] [address] [place] [id number] [facility] VLDL CHOLESTEROL 69 mg/dL Normal [facility] Comment on above: Performed By: #### V [id number], TSH3 wRFLX, LIPID #### [facility] [address] Serum or plasma high density lipoprotein (HDL) cholesterol measurementOrdered By: Timbo Boland on 02-20-2024 Cholesterol in HDL [Mass/Vol] 22 mg/dL Low 23-92 [facility] Comment on above: HDL CHOL ATP-III CLA SSIFICATION Cardiovascular RiskHDL > or equal to 60 mg/dL LOWHDL < 40 mg/dL HIGH Result Comment: HDL CHOL ATP-III CLASSIFICATION Cardiovascular Risk HDL > or equal to 60 mg/dL LOW HDL < 40 mg/dL HIGH Performed By: #### V [id number], TSH3 wRFLX, LIPID #### [facility] [address] Serum or plasma total choles terol/high density lipoprotein (HDL) cholesterol mass ratOrdered By: Timbo Boland on 02-20-2024 Cholesterol.total/Tahs sterol in HDL [Mass ratio] 6.5 {ratio} Normal <5.0 [facility] Comment on above: Performed By: #### V [id number], TSH3 wRFLX, LIPID #### [facility] [address] Thyroid Stim Hormone w/Rflxo n 02-20-2024 Thyroid Stim Hormone w/Rflx 1.21 u[iU]/mL Normal 0.45-5.33 [facility] Comment on above: Performed By: #### V [id number], TSH3 wRFLX, LIPID #### [facility] [address] Thyrotropin [Units/volume] i n Serum or PlasmaOrdered By: Timbo Boland on 02-20-2024 TSH Qn 1.21 m[IU]/L 0.45-5.33 [facility] Triglyceride [Mass/volume] i n Serum or PlasmaOrdered By: Timbo Boland on 02-20-2024 Triglyceride [Mass/Vol] 346 mg/dL High 0-149 [facility] Comment on above: TRIG ATP III CLASSIF ICATIONTRIG less than 150 mg/dL NormalTRIG 150-199 mg/dL Borderline highTRIG 200-500 mg/dL High TRIG greater than 500 mg/dL Very highStandard traceable to the Center for Disease Conrtrol and Prevention (CDC) test method. Vitamin D 25 Hydroxy Totalon 02-20-2024 Vitamin D 25 Hydroxy Total 29.3 ng/mL Low 30-100 [facility] Comment on above: Result Comment: MONIQUE MIN D STATUS 25([place])VITAMIN D RANGE (ng/mL) Deficient <20 Insufficient 20 to <30 Sufficient 30 to 100 Reference: Abdias Lima Bischoff-Ferrari HA, et al. Evaluation,treatment, and prevention of vitamin D deficiency; an Endocrine Society clinical practice guideline. JCEM. 2010; 96(7):1911-30. PERFORMED BY: [place] [address] PATHOLOGIST [employer] SPECIALIST TERRY GIBBS M.D. Performed By: #### V [id number], TSH3 wRFLX, LIPID #### [address] Vitamin D+Metabolites [Mass/ volume] in Serum or PlasmaOrdered By: Timbo Boland on 02-20-2024 Vitamin D+Metabolites [Mass/Vol] 29.3 ng/mL Low 30-100 [facility] Comment on above: VITAMIN D STATUS 25( [place])VITAMIN D RANGE (ng/mL) Deficient <20 Insufficient 20 to <30Sufficient 30 to 100Reference: Abdias Lima, Livan MARTELL, et al. Evaluation,treatment, and prevention of vitamin D deficiency; an Endocrine Society clinical practice guideline. JCEM. 2010; 96(7):1911-30. CT ABDOMEN AND PELVIS W CONT on 01-25-2024 CT ABDOMEN AND PELVIS W CONT CT ABDOMEN AND PELVIS W CONT CT ABDOMEN AND PELVIS W CONT CLINICAL HISTORY: Abdominal pain COMPARISON: 03/08/2022 TECHNIQUE: * CT abdomen and pelvis was performed with the administration of intravenous contrast. Coronal and sagittal reformatted images were generated and reviewed. Automated exposure control was utilized. * All CT scans at this facility use dose modulation, iterative reconstruction, and/or weight based dosing when appropriate to reduce radiation dose to as low as reasonably achievable. FINDINGS: Visualized portions of lung parenchyma appear unremarkable. No pleural or pericardial effusions. No intra-abdominal free air or free fluid. The liver, gallbladder, spleen, pancreas, and adrenal glands appear unremarkable. Nonobstructive calculus mid pole right kidney measures approximately 4 mm. No hydronephrosis or suspicious renal lesion. No pelvic free fluid. The prostate appears nonenlarged. Small and large bowel appear nondilated, with intraluminal air-fluid levels suggestive of diarrheal state. Appendix is normal. Multiple nonenlarged retroperitoneal and mesenteric lymph nodes do not appear significantly changed from prior examination. Multilevel degenerative changes of the visualized thoracolumbar spine. No acute osseous abnormality. IMPRESSION: * Nondilated small and large bowel with intraluminal air-fluid levels suggestive of diarrheal state. * Nonobstructive left nephrolithiasis. Approved by Resident: Seferino Abdi MD on 01/25/2024 12:44 AM I, Darrian Sol MD have personally reviewed the image(s) and agree with and/or edited the report Finalized by Darrian Sol MD on 01/25/2024 12:57 AM Normal [facility] CBC AND AUTO DIFFon 01-24-20 24 ABSOLUTE BASOPHIL 0.1 X10E9/L Normal 0.0-0.2 [facility] Comment on above: Performed By: #### 2 4331-1, CMP, 3016-3, CBCA, 2857-1 #### [facility] ([id number]) [address] [place] [address] ABSOLUTE NEUTROPHIL 5.3 X10E9/L Normal 1.5-6.6 [facility] Comment on above: Performed By: #### 2 4331-1, CMP, 3016-3, CBCA, 2857-1 #### [facility] ([id number]) [address] [facility] [place] [address] Basophils/100 WBC (Bld) 0.9 % Normal [facility] Comment on above: Performed By: #### 2 4331-1, CMP, 3016-3, CBCA, 2857-1 #### [facility] ([id number]) [address] [address] [place] [address] Eosinophils (Bld) [#/Vol] 0.3 10*3/uL Normal 0.0-0.4 [facility] Comment on above: Performed By: #### 2 4331-1, CMP, 3016-3, CBCA, 2857-1 #### [facility] ([id number]) [address] [address] Eosinophils/100 WBC (Bld) 3.2 % Normal [facility] Comment on above: Performed By: #### 2 4331-1, CMP, 3016-3, CBCA, 2857-1 #### [facility] ([id number]) [address] [address] [place] [address] Erythrocyte distribution width (RBC) [Ratio] 16.6 % High 11.5-15.0 [facility] Comment on above: Performed By: #### 2 4331-1, CMP, 3016-3, CBCA, 2857-1 #### [facility] ([id number]) [address] [address] Hematocrit (Bld) [Volume fraction] 40.0 % Normal 39-49 [facility] Comment on above: Performed By: #### 2 4331-1, CMP, 3016-3, CBCA, 2857-1 #### [facility] ([id number]) [address] [address] [place] [address] Hemoglobin (Bld) [Mass/Vol] 13.3 g/dL Normal 13.0-17.0 [facility] Comment on above: Performed By: #### 2 4331-1, CMP, 3016-3, CBCA, 2857-1 #### [facility] ([id number]) [address] [address] [place] [address] Lymphocytes (Bld) [#/Vol] 3.1 10*3/uL Normal 1.0-3.5 [facility] Comment on above: Performed By: #### 2 4331-1, CMP, 3016-3, CBCA, 2857-1 #### [facility] ([id number]) [address] [address] [place] [address] Lymphocytes/100 WBC (Bld) 32.9 % Normal [facility] Comment on above: Performed By: #### 2 4331-1, CMP, 3016-3, CBCA, 2857-1 #### [facility] ([id number]) [address] [facility] [address] [place] [address] MCH (RBC) [Entitic mass] 27.1 pg Normal 27-34 [facility] Comment on above: Performed By: #### 2 4331-1, CMP, 3016-3, CBCA, 2857-1 #### [facility] ([id number]) [address] [address] [place] [address] MCHC (RBC) [Mass/Vol] 33.4 g/dL Normal 32-36 [place] Comment on above: Performed By: #### 2 4331-1, CMP, 3016-3, CBCA, 2857-1 #### [facility] ([id number]) [address] [address] [place] [address] MCV (RBC) [Entitic vol] 81 fL Normal 80-100 [facility] Comment on above: Performed By: #### 2 4331-1, CMP, 3016-3, CBCA, 2857-1 #### [facility] ([id number]) [address] [address] [place] [address] Monocytes (Bld) [#/Vol] 0.5 10*3/uL Normal 0-0.9 [facility] Comment on above: Performed By: #### 2 4331-1, CMP, 3016-3, CBCA, 2857-1 #### [facility] ([id number]) [address] [place] [address] Monocytes/100 WBC (Bld) 5.9 % Normal [facility] Comment on above: Performed By: #### 2 4331-1, CMP, 3016-3, CBCA, 2857-1 #### [facility] ([id number]) [address] [place] [address] Neutrophils/100 WBC (Bld) 57.1 % Normal [facility] Comment on above: Performed By: #### 2 4331-1, CMP, 3016-3, CBCA, 2857-1 #### [facility] ([id number]) [address] [place] [address] Platelet mean volume (Bld) [Entitic vol] 8.4 fL Normal 7-12 [facility] Comment on above: Performed By: #### 2 4331-1, CMP, 3016-3, CBCA, 2857-1 #### [facility] ([id number]) [address] [place] [address] Platelets (Bld) [#/Vol] 223 10*3/uL Normal 150-450 [facility] Comment on above: Performed By: #### 2 4331-1, CMP, 3016-3, CBCA, 2857-1 #### [facility] ([id number]) [address], [address] [place] [address] RBC COUNT 4.93 X10E12/L Normal 4.10-5.70 [facility] Comment on above: Performed By: #### 2 4331-1, CMP, 3016-3, CBCA, 2857-1 #### [facility] ([id number]) [address], [address] [place] [address] WBC (Bld) [#/Vol] 9.3 10*3/uL Normal 4.0-11.0 [facility] Comment on above: Performed By: #### 2 4331-1, CMP, 3016-3, CBCA, 2857-1 #### [facility] ([id number]) [address], [address] [place] [address] COMPREHENSIVE METABOLIC PANE Abram 01-24-2024 Albumin [Mass/Vol] 4.1 g/dL Normal 3.2-5.3 [facility] Comment on above: Performed By: #### 2 4331-1, CMP, 3016-3, CBCA, 2857-1 #### [facility] ([id number]) [address], [address] [place] [address] ALP [Catalytic activity/Vol] 177 U/L High 39-130 [facility] Comment on above: Performed By: #### 2 4331-1, CMP, 3016-3, CBCA, 2857-1 #### [facility] ([id number]) [address], [address] [place] [address] ALT [Catalytic activity/Vol] 36 U/L Normal 0-40 [facility] Comment on above: Performed By: #### 2 4331-1, CMP, 3016-3, CBCA, 2857-1 #### [facility] ([id number]) [address], [address] [place] [address] Anion gap [Moles/Vol] 7 mmol/L Normal 5-15 [place] Comment on above: Performed By: #### 2 4331-1, CMP, 3016-3, CBCA, 2857-1 #### [facility] ([id number]) [address], [address] [place] [address] AST [Catalytic activity/Vol] 27 U/L Normal 0-41 [facility] Comment on above: Performed By: #### 2 4331-1, CMP, 3016-3, CBCA, 2857-1 #### [facility] ([id number]) [address] [address] [place] [address] Bilirubin [Mass/Vol] 0.2 mg/dL Low 0.3-1.2 [facility] Comment on above: Performed By: #### 2 4331-1, CMP, 3016-3, CBCA, 2857-1 #### [facility] ([id number]) [address], [address] [place] [address] Calcium [Mass/Vol] 9.4 mg/dL Normal 8.5-10.5 [facility] Comment on above: Performed By: #### 2 4331-1, CMP, 3016-3, CBCA, 2857-1 #### [facility] ([id number]) [address] [address] [place] [address] Chloride [Moles/Vol] 109 mmol/L Normal 98-109 [facility] Comment on above: Performed By: #### 2 4331-1, CMP, 3016-3, CBCA, 2857-1 #### [facility] ([id number]) [address] [address] [place] [address] CO2 [Moles/Vol] 19 mmol/L Low 22-32 [facility] Comment on above: Performed By: #### 2 4331-1, CMP, 3016-3, CBCA, 2857-1 #### [facility] ([id number]) [address] [address] [place] [address] Creatinine [Mass/Vol] 1.90 mg/dL High 0.70-1.20 [place] Comment on above: Result Comment: METH OD TRACEABLE TO IDMS STANDARD Performed By: #### 2 4331-1, CMP, 3016-3, CBCA, 2857-1 #### [facility] ([id number]) [address] [address] [place] [address] GFR/1.73 sq M.predicted among non-blacks MDRD (S/P/Bld) [Vol rate/Area] 40 mL/min/{1.73_m2} Low >59 [facility] Comment on above: Result Comment: Reported eGFR is based on the CKD-EPI 2020 equation that does not use a race coefficient. Performed By: #### 2 4331-1, CMP, 3016-3, CBCA, 2857-1 #### [facility] ([id number]) [address], [address] [place] [address] Glucose [Mass/Vol] 240 mg/dL High 65-99 [facility] Comment on above: Performed By: #### 2 4331-1, GISELLE, 3016-3, CBCA, 2857-1 #### [facility] ([id number]) [address], [address] [place] [address] Potassium [Moles/Vol] 4.0 mmol/L Normal 3.5-5.0 [place] Comment on above: Performed By: #### 2 4331-1, [facility], 3016-3, CBCA, 2857-1 #### [facility] ([id number]) [address] [address] [place] [address] Protein [Mass/Vol] 8.2 g/dL High 6.0-8.0 [facility] Comment on above: Performed By: #### 2 4331-1, GISELLE, 3016-3, CBCA, 2857-1 #### [facility] ([id number]) [address] [address] [place] [address] Sodium [Moles/Vol] 135 mmol/L Normal 134-146 [facility] Comment on above: Performed By: #### 2 4331-1, CMP, 3016-3, CBCA, 2857-1 #### [facility] ([id number]) [address], [address] [place] [address] Urea nitrogen [Mass/Vol] 21 mg/dL Normal 5-27 [facility] Comment on above: Performed By: #### 2 4331-1, CMP, 3016-3, CBCA, 2857-1 #### [facility] ([id number]) [address], [address] [place] [address] LIPASEon 01-24-2024 Lipase [Catalytic activity/Vol] 50 U/L High 17-40 [facility] Comment on above: Performed By: #### 2 4331-1, CMP, 3016-3, CBCA, 2857-1 #### [facility] ([id number]) [address], [address] [place] [address] MAGNESIUMon 01-24-2024 Magnesium [Mass/Vol] 1.6 mg/dL Low 1.8-2.6 [facility] Comment on above: Performed By: #### 2 4331-1, CMP, 3016-3, CBCA, 2857-1 #### [facility] ([id number]) [address], [address] [place] [address] Troponin I.cardiac High sens itivity method [Mass/Vol]on 01-24-2024 TROPONIN I, HIGH SENSITIVITY 2 ng/L Normal <21 [facility] Comment on above: Performed By: #### 2 4331-1, CMP, 3016-3, CBCA, 2857-1 #### [facility] ([id number]) [address], [address] [place] [address] 1 HOUR TROP I, HIGH SENSITIVITY 6 ng/L Normal <21 [facility] Comment on above: Performed By: #### 2 4331-1, CMP, 3016-3, CBCA, 2857-1 #### [facility] ([id number]) [address], [address] [place] [address] XR CHEST 1 VWon 01-24-2024 XR CHEST 1 VW XR CHEST 1 VW XR CHEST 1 VW HISTORY: Heartburn, chest pain COMPARISON: 04/13/2023 IMPRESSION: * Suboptimal examination secondary to hypoventilatory change and apical lordotic positioning. * Questionable bibasilar opacities, potentially artifactual due to overlying soft tissues though bibasilar atelectasis or pneumonia not able to be excluded on the basis of this image. * Lucencies beneath the left hemidiaphragm somewhat atypical in appearance, still favored to represent intraluminal air though if concern for abdominal perforation consider dedicated upright abdominal radiographs or CT. Approved by Resident: Seferino Abdi MD on 01/24/2024 11:08 PM I, Carlitos Rivera MD have personally reviewed the image(s) and agree with and/or edited the report Finalized by Carlitos Rivera MD on 01/24/2024 11:13 PM Normal [facility] Glucose Glucometer (BldC) [M ass/Vol]on 12-21-2023 Glucose [Mass/Vol] 161 mg/dL High 65-99 [facility] BASIC METABOLIC PANLon 12-06 Anion gap [Moles/Vol] 11 mmol/L Normal 5-15 [place] Comment on above: Performed By: #### 2 4331-1, CMP, 3016-3, CBCA, 2857-1 #### [facility] ([id number]) [address], [address] [place] [address] Calcium [Mass/Vol] 9.5 mg/dL Normal 8.5-10.5 [facility] Comment on above: Performed By: #### 2 4331-1, CMP, 3016-3, CBCA, 2857-1 #### [facility] ([id number]) [address], [address] [place] [address] Chloride [Moles/Vol] 103 mmol/L Normal 98-109 [facility] Comment on above: Performed By: #### 2 4331-1, CMP, 3016-3, CBCA, 2857-1 #### [facility] ([id number]) [address], [address] [place] [address] CO2 [Moles/Vol] 24 mmol/L Normal 22-32 [facility] Comment on above: Performed By: #### 2 4331-1, CMP, 3016-3, CBCA, 2857-1 #### [facility] ([id number]) [address], [address] [place] [address] Creatinine [Mass/Vol] 1.85 mg/dL High 0.60-1.30 [place] Comment on above: Result Comment: METH OD TRACEABLE TO IDMS STANDARD Performed By: #### 2 4331-1, CMP, 3016-3, CBCA, 2857-1 #### [facility] ([id number]) [address] [address] GFR/1.73 sq M.predicted among non-blacks MDRD (S/P/Bld) [Vol rate/Area] 41 mL/min/{1.73_m2} Low >59 [facility] Comment on above: Result Comment: Reported eGFR is based on the CKD-EPI 2020 equation that does not use a race coefficient. Performed By: #### 2 4331-1, GISELLE, 3016-3, CBCA, 2857-1 #### [facility] ([id number]) [address] [address] [place] [address] Glucose [Mass/Vol] 383 mg/dL High 65-99 [facility] Comment on above: Performed By: #### 2 4331-1, CMP, 3016-3, CBCA, 2857-1 #### [facility] ([id number]) [address] [address] [place] [address] Potassium [Moles/Vol] 4.6 mmol/L Normal 3.5-5.0 [place] Comment on above: Performed By: #### 2 4331-1, CMP, 3016-3, CBCA, 2857-1 #### [facility] ([id number]) [address], [address] [place] [address] Sodium [Moles/Vol] 138 mmol/L Normal 134-146 [facility] Comment on above: Performed By: #### 2 4331-1, CMP, 3016-3, CBCA, 2857-1 #### [facility] ([id number]) [address], [address] [place] [address] Urea nitrogen [Mass/Vol] 23 mg/dL Normal 5-27 [facility] Comment on above: Performed By: #### 2 4331-1, CMP, 3016-3, CBCA, 2857-1 #### [facility] ([id number]) [address], [facility] [address] [place] [address] PROTIME AND INRon 12-07-2023 INR Coag (PPP) [Relative time] 1.0 {INR} Normal 0.8-1.1 [facility] Comment on above: Performed By: #### 2 4331-1, [facility], 3016-3, CBCA, 2857-1 #### [facility] ([id number]) [address], [address] [place] [address] PT Coag (PPP) [Time] 11.8 s Normal 9.8-13.2 [facility] Comment on above: Performed By: #### 2 4331-1, CMP, 3016-3, CBCA, 2857-1 #### [facility] ([id number]) [address], [address] [place] [address] Glucose Glucometer (BldC) [M ass/Vol]on 10-26-2023 Glucose [Mass/Vol] 439 mg/dL Critically high 65-99 P [facility] URINALYSISon 10-12-2023 Bilirubin Ql (U) Negative Normal NEG [facility] Comment on above: Performed By: #### 2 4331-1, CMP, 3016-3, CBCA, 2857-1 #### [facility] ([id number]) [address], [address] [place] [address] BLOOD/HGB Negative Normal NEG [facility] Comment on above: Performed By: #### 2 4331-1, CMP, 3016-3, CBCA, 2857-1 #### [facility] ([id number]) [address], [address] [place] [address] Color (U) YELLOW Normal YELLOW [facility] Comment on above: Performed By: #### 2 4331-1, CMP, 3016-3, CBCA, 2857-1 #### [facility] ([id number]) [address], [address] [place] [address] Glucose Ql (U) >1000 Abnormal NEG [facility] Comment on above: Performed By: #### 2 4331-1, CMP, 3016-3, CBCA, 2857-1 #### [facility] ([id number]) [address], [address] [place] [address] Ketones Ql (U) Negative Normal NEG [facility] Comment on above: Performed By: #### 2 4331-1, CMP, 3016-3, CBCA, 2857-1 #### [facility] ([id number]) [address], [address] [place] [address] Leukocyte esterase Test strip Ql (U) MODERATE Abnormal NEG [facility] Comment on above: Result Comment: HIGH CONCENTRATIONS OF GLUCOSE MAY DECREASE THE REACTIVITY OF THE DIPSTICK LEUKOCYTE TEST PAD. Performed By: #### 2 4331-1, CMP, 3016-3, CBCA, 2857-1 #### [facility] ([id number]) [address], [address] [place] [address] MUCOUS PRESENT Abnormal NONE [facility] Comment on above: Performed By: #### 2 4331-1, CMP, 3016-3, CBCA, 2857-1 #### [facility] ([id number]) [address], [address] [place] [address] Nitrite Ql (U) Negative Normal NEG [facility] Comment on above: Performed By: #### 2 4331-1, CMP, 3016-3, CBCA, 2857-1 #### [facility] ([id number]) [address], [address] [place] [address] pH (U) 6.5 [pH] Normal 5.0-8.5 [facility] Comment on above: Performed By: #### 2 4331-1, CMP, 3016-3, CBCA, 2857-1 #### [facility] ([id number]) [address], [address] [place] [address] Protein Ql (U) 70 mg/dL Abnormal NEG [facility] Comment on above: Performed By: #### 2 4331-1, CMP, 3016-3, CBCA, 2857-1 #### [facility] ([id number]) [address], [address] [place] [address] R.B.CELLS 1 /hpf Normal 0-5 [facility] Comment on above: Performed By: #### 2 4331-1, CMP, 3016-3, CBCA, 2857-1 #### [facility] ([id number]) [address], [address] [place] [address] Specific gravity (U) [Rel density] 1.021 Normal 1.003-1.035 [facility] Comment on above: Performed By: #### 2 4331-1, CMP, 3016-3, CBCA, 2857-1 #### [facility] ([id number]) [address], [address] [place] [address] SQUAMOUS EPITHELIUM 5 /hpf Normal 0-5 [facility] Comment on above: Performed By: #### 2 4331-1, CMP, 3016-3, CBCA, 2857-1 #### [facility] ([id number]) [address], [address] [place] [address] TURBIDITY CLEAR Normal CLEAR [facility] Comment on above: Performed By: #### 2 4331-1, CMP, 3016-3, CBCA, 2857-1 #### [facility] ([id number]) [address], [address] [place] [address] Urobilinogen (U) [Mass/Vol] mg/dL Normal <1.1 [facility] Comment on above: Performed By: #### 2 4331-1, CMP, 3016-3, CBCA, 2857-1 #### [facility] ([id number]) [address], [address] [place] [address] W.B.CELLS 4 /hpf Normal 0-5 [facility] Comment on above: Performed By: #### 2 4331-1, CMP, 3016-3, CBCA, 2857-1 #### [facility] ([id number]) [address] [address] [place] [address] URINE CULTUREon 10-12-2023 Bacteria identified Cx Nom (U) CULTURE RESULTS 50-100,000 ORGANISMS/ML NORMAL UROGENITAL BONY Normal [facility] Comment on above: Performed By: #### 2 4331-1, CMP, 3016-3, CBCA, 2857-1 #### [facility] ([id number]) [address] [address] [place] [address] Beta hydroxybutyrate [Moles/ Vol]on 10-04-2023 BetaHydroxybutyrate 0.14 mmol/L Normal 0.02-0.27 [facility] Comment on above: Performed By: #### 2 4331-1, CMP, 3016-3, CBCA, 2857-1 #### [facility] ([id number]) [address] [address] [place] [address] CBC AND AUTO DIFFon 10-04-19 24 ABSOLUTE BASOPHIL 0.1 X10E9/L Normal 0.0-0.2 [facility] Comment on above: Performed By: #### 2 4331-1, CMP, 3016-3, CBCA, 2857-1 #### [facility] ([id number]) [address], [address] [place] [address] ABSOLUTE NEUTROPHIL 3.3 X10E9/L Normal 1.5-6.6 [facility] Comment on above: Performed By: #### 2 4331-1, CMP, 3016-3, CBCA, 2857-1 #### [facility] ([id number]) [address], [facility] [address] [place] [address] Basophils/100 WBC (Bld) 1.2 % Normal [facility] Comment on above: Performed By: #### 2 4331-1, CMP, 3016-3, CBCA, 2857-1 #### [facility] ([id number]) [address], [address] [place] [address] Eosinophils (Bld) [#/Vol] 0.2 10*3/uL Normal 0.0-0.4 [facility] Comment on above: Performed By: #### 2 4331-1, CMP, 3016-3, CBCA, 2857-1 #### [facility] ([id number]) [address], [address] [place] [address] Eosinophils/100 WBC (Bld) 3.6 % Normal [facility] Comment on above: Performed By: #### 2 4331-1, CMP, 3016-3, CBCA, 2857-1 #### [facility] ([id number]) [address], [address] [place] [address] Erythrocyte distribution width (RBC) [Ratio] 17.1 % High 11.5-15.0 [facility] Comment on above: Performed By: #### 2 4331-1, CMP, 3016-3, CBCA, 2857-1 #### [facility] ([id number]) [address] [address] [place] [address] Hematocrit (Bld) [Volume fraction] 33.8 % Low 39-49 [facility] Comment on above: Performed By: #### 2 4331-1, CMP, 3016-3, CBCA, 2857-1 #### [facility] ([id number]) [address] [address] [place] [address] Hemoglobin (Bld) [Mass/Vol] 11.2 g/dL Low 13.0-17.0 [facility] Comment on above: Performed By: #### 2 4331-1, CMP, 3016-3, CBCA, 2857-1 #### [facility] ([id number]) [address] [address] Lymphocytes (Bld) [#/Vol] 2.5 10*3/uL Normal 1.0-3.5 [facility] Comment on above: Performed By: #### 2 4331-1, CMP, 3016-3, CBCA, 2857-1 #### [facility] ([id number]) [address] [address] [place] [address] Lymphocytes/100 WBC (Bld) 38.4 % Normal [facility] Comment on above: Performed By: #### 2 4331-1, CMP, 3016-3, CBCA, 2857-1 #### [facility] ([id number]) [address] [address] [place] [address] MCH (RBC) [Entitic mass] 27.1 pg Normal 27-34 [facility] Comment on above: Performed By: #### 2 4331-1, CMP, 3016-3, CBCA, 2857-1 #### [facility] ([id number]) [address] [address] [place] [address] MCHC (RBC) [Mass/Vol] 33.2 g/dL Normal 32-36 [place] Comment on above: Performed By: #### 2 4331-1, CMP, 3016-3, CBCA, 2857-1 #### [facility] ([id number]) [address] [address] MCV (RBC) [Entitic vol] 82 fL Normal 80-100 [facility] Comment on above: Performed By: #### 2 4331-1, CMP, 3016-3, CBCA, 2857-1 #### [facility] ([id number]) [address] [address] Monocytes (Bld) [#/Vol] 0.5 10*3/uL Normal 0-0.9 [facility] Comment on above: Performed By: #### 2 4331-1, CMP, 3016-3, CBCA, 2857-1 #### [facility] ([id number]) [address] [address] Monocytes/100 WBC (Bld) 6.9 % Normal [facility] Comment on above: Performed By: #### 2 4331-1, CMP, 3016-3, CBCA, 2857-1 #### [facility] ([id number]) [address] [address] Neutrophils/100 WBC (Bld) 49.9 % Normal [facility] Comment on above: Performed By: #### 2 4331-1, CMP, 3016-3, CBCA, 2857-1 #### [facility] ([id number]) [address] [address] Platelet mean volume (Bld) [Entitic vol] 8.4 fL Normal 7-12 [facility] Comment on above: Performed By: #### 2 4331-1, CMP, 3016-3, CBCA, 2857-1 #### [facility] ([id number]) [address], [address] [place] [address] Platelets (Bld) [#/Vol] 173 10*3/uL Normal 150-450 [facility] Comment on above: Performed By: #### 2 4331-1, CMP, 3016-3, CBCA, 2857-1 #### [facility] ([id number]) [address], [address] [place] [address] RBC COUNT 4.13 X10E12/L Normal 4.10-5.70 [facility] Comment on above: Performed By: #### 2 4331-1, CMP, 3016-3, CBCA, 2857-1 #### [facility] ([id number]) [address] [address] WBC (Bld) [#/Vol] 6.6 10*3/uL Normal 4.0-11.0 [facility] Comment on above: Performed By: #### 2 4331-1, CMP, 3016-3, CBCA, 2857-1 #### [facility] ([id number]) [address] [address] COMPREHENSIVE METABOLIC PANE Abram 10-04-2023 Albumin [Mass/Vol] 3.7 g/dL Normal 3.2-5.3 [facility] Comment on above: Performed By: #### 2 4331-1, CMP, 3016-3, CBCA, 2857-1 #### [facility] ([id number]) [address] [address] ALP [Catalytic activity/Vol] 143 U/L High 39-130 [facility] Comment on above: Performed By: #### 2 4331-1, CMP, 3016-3, CBCA, 2857-1 #### [facility] ([id number]) [address], [address] [place] [address] ALT [Catalytic activity/Vol] 26 U/L Normal 0-40 [facility] Comment on above: Performed By: #### 2 4331-1, CMP, 3016-3, CBCA, 2857-1 #### [facility] ([id number]) [address], [address] [place] [address] Anion gap [Moles/Vol] 10 mmol/L Normal 5-15 [place] Comment on above: Performed By: #### 2 4331-1, CMP, 3016-3, CBCA, 2857-1 #### [facility] ([id number]) [address], [address] [place] [address] AST [Catalytic activity/Vol] 22 U/L Normal 0-41 [facility] Comment on above: Performed By: #### 2 4331-1, CMP, 3016-3, CBCA, 2857-1 #### [facility] ([id number]) [address] [place] [address] Bilirubin [Mass/Vol] 0.6 mg/dL Normal 0.3-1.2 [facility] Comment on above: Performed By: #### 2 4331-1, CMP, 3016-3, CBCA, 2857-1 #### [facility] ([id number]) [address] [place] [address] Calcium [Mass/Vol] 9.1 mg/dL Normal 8.5-10.5 [facility] Comment on above: Performed By: #### 2 4331-1, CMP, 3016-3, CBCA, 2857-1 #### [facility] ([id number]) [address], [address] [place] [address] Chloride [Moles/Vol] 102 mmol/L Normal 98-109 [facility] Comment on above: Performed By: #### 2 4331-1, CMP, 3016-3, CBCA, 2857-1 #### [facility] ([id number]) [address], [address] [place] [address] CO2 [Moles/Vol] 22 mmol/L Normal 22-32 [facility] Comment on above: Performed By: #### 2 4331-1, [facility], 3016-3, CBCA, 2857-1 #### [facility] ([id number]) [address], [address] [place] [address] Creatinine [Mass/Vol] 1.64 mg/dL High 0.70-1.20 [place] Comment on above: Result Comment: METH OD TRACEABLE TO IDMS STANDARD Performed By: #### 2 4331-1, [facility], 3016-3, CBCA, 2857-1 #### [facility] ([id number]) [address] [address] GFR/1.73 sq M.predicted among non-blacks MDRD (S/P/Bld) [Vol rate/Area] 47 mL/min/{1.73_m2} Low >59 [facility] Comment on above: Result Comment: Reported eGFR is based on the CKD-EPI 2020 equation that does not use a race coefficient. Performed By: #### 2 4331-1, [facility], 3016-3, CBCA, 2857-1 #### [facility] ([id number]) [address], [address] [place] [address] Glucose [Mass/Vol] 372 mg/dL High 65-99 [facility] Comment on above: Performed By: #### 2 4331-1, [facility], 3016-3, CBCA, 2857-1 #### [facility] ([id number]) [address], [address] [place] [address] Potassium [Moles/Vol] 3.8 mmol/L Normal 3.5-5.0 [place] Comment on above: Performed By: #### 2 4331-1, CMP, 3016-3, CBCA, 2857-1 #### [facility] ([id number]) [address], [address] [place] [address] Protein [Mass/Vol] 7.4 g/dL Normal 6.0-8.0 [facility] Comment on above: Performed By: #### 2 4331-1, CMP, 3016-3, CBCA, 2857-1 #### [facility] ([id number]) [address], [address] [place] [address] Sodium [Moles/Vol] 134 mmol/L Normal 134-146 [facility] Comment on above: Performed By: #### 2 4331-1, CMP, 3016-3, CBCA, 2857-1 #### [facility] ([id number]) [address], [address] [place] [address] Urea nitrogen [Mass/Vol] 16 mg/dL Normal 5-27 [facility] Comment on above: Performed By: #### 2 4331-1, [facility], 3016-3, CBCA, 2857-1 #### [facility] ([id number]) [address], [address] [place] [address] Glucose Glucometer (BldC) [M ass/Vol]on 10-04-2023 Glucose [Mass/Vol] 260 mg/dL High 65-99 [facility] Glucose [Mass/Vol] 401 mg/dL Critically high 65-99 P [facility] Glucose [Mass/Vol] 380 mg/dL High 65-99 [facility] VENOUS BLOOD GASon FRANCISCA'S TEST Normal [facility] Comment on above: Performed By: #### 2 4331-1, CMP, 3016-3, CBCA, 2857-1 #### [facility] ([id number]) [address], [address] [place] [address] BASE,DEFICIT 2.0 MMOL/L Normal 0.0-2.0 [facility] Comment on above: Performed By: #### 2 4331-1, CMP, 3016-3, CBCA, 2857-1 #### [facility] ([id number]) [address], [address] [place] [address] Body temperature 98.6 [degF] Normal 37.0 [facility] Comment on above: Performed By: #### 2 4331-1, CMP, 3016-3, CBCA, 2857-1 #### [facility] ([id number]) [address], [address] [place] [address] HCO3 (Bld) [Moles/Vol] 21.6 mmol/L Normal 20.0-24.0 [facility] Comment on above: Performed By: #### 2 4331-1, CMP, 3016-3, CBCA, 2857-1 #### [facility] ([id number]) [address], [address] [place] [address] Oxygen saturation in Blood 80.0 % Low >80.0 [facility] Comment on above: Performed By: #### 2 4331-1, CMP, 3016-3, CBCA, 2857-1 #### [facility] ([id number]) [address], [address] [place] [address] OXYGEN SOURCE RoomAir Normal [facility] Comment on above: Performed By: #### 2 4331-1, CMP, 3016-3, CBCA, 2857-1 #### [facility] ([id number]) [address], [address] [place] [address] PCO2, VENOUS 34.1 MMHG Low 35-50 [facility] Comment on above: Performed By: #### 2 4331-1, CMP, 3016-3, CBCA, 2857-1 #### [facility] ([id number]) [address], [address] [place] [address] PH, VENOUS 7.410 Normal 7.320-7.420 [facility] Comment on above: Performed By: #### 2 4331-1, CMP, 3016-3, CBCA, 2857-1 #### [facility] ([id number]) [address], [facility] [address] [place] [address] PO2, VENOUS 44 MMHG Normal 30-50 [facility] Comment on above: Performed By: #### 2 4331-1, CMP, 3016-3, CBCA, 2857-1 #### [facility] ([id number]) [address], [facility] [address] [place] [address] SAMPLE SITE N/A Normal [facility] Comment on above: Performed By: #### 2 4331-1, CMP, 3016-3, CBCA, 2857-1 #### [facility] ([id number]) [address], [facility] [address] [place] [address] SAMPLE TYPE VENOUS Normal [facility] Comment on above: Performed By: #### 2 4331-1, CMP, 3016-3, CBCA, 2857-1 #### [facility] ([id number]) [address], [facility] [address] [place] [address] CBC AND AUTO DIFFon 09-13-19 24 ABSOLUTE BASOPHIL 0.1 X10E9/L Normal 0.0-0.2 [facility] Comment on above: Performed By: #### 2 4331-1, CMP, 3016-3, CBCA, 2857-1 #### [facility] ([id number]) [address] [address] [place] [address] ABSOLUTE NEUTROPHIL 7.1 X10E9/L High 1.5-6.6 [facility] Comment on above: Performed By: #### 2 4331-1, CMP, 3016-3, CBCA, 2857-1 #### [facility] ([id number]) [address], [address] [place] [address] Basophils/100 WBC (Bld) 0.5 % Normal P [facility] Comment on above: Performed By: #### 2 4331-1, CMP, 3016-3, CBCA, 2857-1 #### [facility] ([id number]) [address], [address] [place] [address] Eosinophils (Bld) [#/Vol] 0.4 10*3/uL Normal 0.0-0.4 [facility] Comment on above: Performed By: #### 2 4331-1, CMP, 3016-3, CBCA, 2857-1 #### [facility] ([id number]) [address], [address] [place] [address] Eosinophils/100 WBC (Bld) 3.4 % Normal [facility] Comment on above: Performed By: #### 2 4331-1, CMP, 3016-3, CBCA, 2857-1 #### [facility] ([id number]) [address], [address] [place] [address] Erythrocyte distribution width (RBC) [Ratio] 15.4 % High 11.5-15.0 [facility] Comment on above: Performed By: #### 2 4331-1, CMP, 3016-3, CBCA, 2857-1 #### [facility] ([id number]) [address], [address] [place] [address] Hematocrit (Bld) [Volume fraction] 34.3 % Low 39-49 [facility] Comment on above: Performed By: #### 2 4331-1, CMP, 3016-3, CBCA, 2857-1 #### [facility] ([id number]) [address], [address] [place] [address] Hemoglobin (Bld) [Mass/Vol] 11.6 g/dL Low 13.0-17.0 [facility] Comment on above: Performed By: #### 2 4331-1, CMP, 3016-3, CBCA, 2857-1 #### [facility] ([id number]) [address] [address] [place] [address] Lymphocytes (Bld) [#/Vol] 2.3 10*3/uL Normal 1.0-3.5 [facility] Comment on above: Performed By: #### 2 4331-1, CMP, 3016-3, CBCA, 2857-1 #### [facility] ([id number]) [address] [address] [place] [address] Lymphocytes/100 WBC (Bld) 22.0 % Normal [facility] Comment on above: Performed By: #### 2 4331-1, CMP, 3016-3, CBCA, 2857-1 #### [facility] ([id number]) [address] [address] [place] [address] MCH (RBC) [Entitic mass] 27.1 pg Normal 27-34 [facility] Comment on above: Performed By: #### 2 4331-1, CMP, 3016-3, CBCA, 2857-1 #### [facility] ([id number]) [address] [address] [place] [address] MCHC (RBC) [Mass/Vol] 34.0 g/dL Normal 32-36 [facility] Comment on above: Performed By: #### 2 4331-1, CMP, 3016-3, CBCA, 2857-1 #### [facility] ([id number]) [address] [address] [place] [address] MCV (RBC) [Entitic vol] 80 fL Normal 80-100 [facility] Comment on above: Performed By: #### 2 4331-1, CMP, 3016-3, CBCA, 2857-1 #### [facility] ([id number]) [address], [address] [place] [address] Monocytes (Bld) [#/Vol] 0.7 10*3/uL Normal 0-0.9 [facility] Comment on above: Performed By: #### 2 4331-1, CMP, 3016-3, CBCA, 2857-1 #### [facility] ([id number]) [address], [facility] [address] [place] [address] Monocytes/100 WBC (Bld) 6.5 % Normal [facility] Comment on above: Performed By: #### 2 4331-1, CMP, 3016-3, CBCA, 2857-1 #### [facility] ([id number]) [address] [address] [place] [address] Neutrophils/100 WBC (Bld) 67.6 % Normal [facility] Comment on above: Performed By: #### 2 4331-1, CMP, 3016-3, CBCA, 2857-1 #### [facility] ([id number]) [address] [address] [place] [address] Platelet mean volume (Bld) [Entitic vol] 7.7 fL Normal 7-12 [facility] Comment on above: Performed By: #### 2 4331-1, CMP, 3016-3, CBCA, 2857-1 #### [facility] ([id number]) [address] [address] [place] [address] Platelets (Bld) [#/Vol] 350 10*3/uL Normal 150-450 [facility] Comment on above: Performed By: #### 2 4331-1, CMP, 3016-3, CBCA, 2857-1 #### [facility] ([id number]) [address] [address] [place] [address] RBC COUNT 4.29 X10E12/L Normal 4.10-5.70 [facility] Comment on above: Performed By: #### 2 4331-1, CMP, 3016-3, CBCA, 2857-1 #### [facility] ([id number]) [address], [address] [place] [address] WBC (Bld) [#/Vol] 10.5 10*3/uL Normal 4.0-11.0 [facility] Comment on above: Performed By: #### 2 4331-1, CMP, 3016-3, CBCA, 2857-1 #### [facility] ([id number]) [address], [address] [place] [address] COMPREHENSIVE METABOLIC PANE Abram 09-13-2023 Albumin [Mass/Vol] 3.2 g/dL Normal 3.2-5.3 [facility] Comment on above: Performed By: #### 2 4331-1, CMP, 3016-3, CBCA, 2857-1 #### [facility] ([id number]) [address], [address] [place] [address] ALP [Catalytic activity/Vol] 110 U/L Normal 39-130 [facility] Comment on above: Performed By: #### 2 4331-1, CMP, 3016-3, CBCA, 2857-1 #### [facility] ([id number]) [address], [address] [place] [address] ALT [Catalytic activity/Vol] 25 U/L Normal 0-40 [facility] Comment on above: Performed By: #### 2 4331-1, CMP, 3016-3, CBCA, 2857-1 #### [facility] ([id number]) [address], [address] [place] [address] Anion gap [Moles/Vol] 11 mmol/L Normal 5-15 [place] Comment on above: Performed By: #### 2 4331-1, CMP, 3016-3, CBCA, 2857-1 #### [facility] ([id number]) [address], [address] [place] [address] AST [Catalytic activity/Vol] 21 U/L Normal 0-41 [facility] Comment on above: Performed By: #### 2 4331-1, CMP, 3016-3, CBCA, 2857-1 #### [facility] ([id number]) [address], [address] [place] [address] Bilirubin [Mass/Vol] 0.6 mg/dL Normal 0.3-1.2 [facility] Comment on above: Performed By: #### 2 4331-1, CMP, 3016-3, CBCA, 2857-1 #### [facility] ([id number]) [address], [address] [place] [address] Calcium [Mass/Vol] 9.3 mg/dL Normal 8.5-10.5 [facility] Comment on above: Performed By: #### 2 4331-1, CMP, 3016-3, CBCA, 2857-1 #### [facility] ([id number]) [address], [address] [place] [address] Chloride [Moles/Vol] 100 mmol/L Normal 98-109 [facility] Comment on above: Performed By: #### 2 4331-1, CMP, 3016-3, CBCA, 2857-1 #### [facility] ([id number]) [address], [address] [place] [address] CO2 [Moles/Vol] 24 mmol/L Normal 22-32 [facility] Comment on above: Performed By: #### 2 4331-1, CMP, 3016-3, CBCA, 2857-1 #### [facility] ([id number]) [address], [address] [place] [address] Creatinine [Mass/Vol] 1.76 mg/dL High 0.70-1.20 [place] Comment on above: Result Comment: METH OD TRACEABLE TO IDMS STANDARD Performed By: #### 2 4331-1, GISELLE, 3016-3, CBCA, 2857-1 #### [facility] ([id number]) [address], [address] [place] [address] GFR/1.73 sq M.predicted among non-blacks MDRD (S/P/Bld) [Vol rate/Area] 43 mL/min/{1.73_m2} Low >59 [facility] Comment on above: Result Comment: Reported eGFR is based on the CKD-EPI 2020 equation that does not use a race coefficient. Performed By: #### 2 4331-1, GISELLE, 3016-3, CBCA, 2857-1 #### [facility] ([id number]) [address], [address] [place] [address] Glucose [Mass/Vol] 207 mg/dL High 65-99 [facility] Comment on above: Performed By: #### 2 4331-1, GISELLE, 3016-3, CBCA, 2857-1 #### [facility] ([id number]) [address] [address] [place] [address] Potassium [Moles/Vol] 3.8 mmol/L Normal 3.5-5.0 [place] Comment on above: Performed By: #### 2 4331-1, GISELLE, 3016-3, CBCA, 2857-1 #### [facility] ([id number]) [address], [address] [place] [address] Protein [Mass/Vol] 7.9 g/dL Normal 6.0-8.0 [facility] Comment on above: Performed By: #### 2 4331-1, CMP, 3016-3, CBCA, 2857-1 #### [facility] ([id number]) [address], [address] [place] [address] Sodium [Moles/Vol] 135 mmol/L Normal 134-146 [facility] Comment on above: Performed By: #### 2 4331-1, CMP, 3016-3, CBCA, 2857-1 #### [facility] ([id number]) [address], [address] [place] [address] Urea nitrogen [Mass/Vol] 23 mg/dL Normal 5-27 [facility] Comment on above: Performed By: #### 2 4331-1, CMP, 3016-3, CBCA, 2857-1 #### [facility] ([id number]) [address], [facility] [address] [place] [address] MAGNESIUMon 09-13-2023 Magnesium [Mass/Vol] 1.7 mg/dL Low 1.8-2.6 [facility] Comment on above: Performed By: #### 2 4331-1, CMP, 3016-3, CBCA, 2857-1 #### [facility] ([id number]) [address], [address] [place] [address] CBC AND AUTO DIFFon 09-12-19 24 Band form neutrophils/100 WBC (Bld) 1.0 % Normal [facility] Comment on above: Performed By: #### 2 4331-1, CMP, 3016-3, CBCA, 2857-1 #### [facility] ([id number]) [address], [address] [place] [address] Eosinophils (Bld) [#/Vol] 0.3 10*3/uL Normal 0.0-0.4 [facility] Comment on above: Performed By: #### 2 4331-1, CMP, 3016-3, CBCA, 2857-1 #### [facility] ([id number]) [address], [address] [place] [address] Eosinophils/100 WBC (Bld) 3.0 % Normal [facility] Comment on above: Performed By: #### 2 4331-1, CMP, 3016-3, CBCA, 2857-1 #### [facility] ([id number]) [address] [address] [place] [address] Erythrocyte distribution width (RBC) [Ratio] 15.3 % High 11.5-15.0 [facility] Comment on above: Performed By: #### 2 4331-1, CMP, 3016-3, CBCA, 2857-1 #### [facility] ([id number]) [address] [address] [place] [address] Hematocrit (Bld) [Volume fraction] 31.9 % Low 39-49 [facility] Comment on above: Performed By: #### 2 4331-1, CMP, 3016-3, CBCA, 2857-1 #### [facility] ([id number]) [address] [address] [place] [address] Hemoglobin (Bld) [Mass/Vol] 10.7 g/dL Low 13.0-17.0 [facility] Comment on above: Performed By: #### 2 4331-1, CMP, 3016-3, CBCA, 2857-1 #### [facility] ([id number]) [address] [address] [place] [address] LYMPHOCYTE, ATYPICAL 8.0 % Normal [facility] Comment on above: Performed By: #### 2 4331-1, CMP, 3016-3, CBCA, 2857-1 #### [facility] ([id number]) [address] [address] [place] [address] Lymphocytes (Bld) [#/Vol] 3.3 10*3/uL Normal 1.0-3.5 [facility] Comment on above: Performed By: #### 2 4331-1, CMP, 3016-3, CBCA, 2857-1 #### [facility] ([id number]) [address] [address] [place] [address] Lymphocytes/100 WBC (Bld) 25.0 % Normal [facility] Comment on above: Performed By: #### 2 4331-1, CMP, 3016-3, CBCA, 2857-1 #### [facility] ([id number]) [address] [address] [place] [address] MCH (RBC) [Entitic mass] 27.1 pg Normal 27-34 [facility] Comment on above: Performed By: #### 2 4331-1, CMP, 3016-3, CBCA, 2857-1 #### [facility] ([id number]) [address] [address] [place] [address] MCHC (RBC) [Mass/Vol] 33.4 g/dL Normal 32-36 [place] Comment on above: Performed By: #### 2 4331-1, CMP, 3016-3, CBCA, 2857-1 #### [facility] ([id number]) [address] [address] [place] [address] MCV (RBC) [Entitic vol] 81 fL Normal 80-100 [facility] Comment on above: Performed By: #### 2 4331-1, CMP, 3016-3, CBCA, 2857-1 #### [facility] ([id number]) [address] [address] [place] [address] Monocytes (Bld) [#/Vol] 0.6 10*3/uL Normal 0-0.9 [facility] Comment on above: Performed By: #### 2 4331-1, CMP, 3016-3, CBCA, 2857-1 #### [facility] ([id number]) [address] [address] [place] [address] Monocytes/100 WBC (Bld) 6.0 % Normal [facility] Comment on above: Performed By: #### 2 4331-1, CMP, 3016-3, CBCA, 2857-1 #### [facility] ([id number]) [address], [address] [place] [address] Neutrophils (Bld) [#/Vol] 5.6 10*3/uL Normal 1.5-6.6 [facility] Comment on above: Performed By: #### 2 4331-1, CMP, 3016-3, CBCA, 2857-1 #### [facility] ([id number]) [address], [address] [place] [address] OVALOCYTE 1+ Abnormal NONE [facility] Comment on above: Performed By: #### 2 4331-1, CMP, 3016-3, CBCA, 2857-1 #### [facility] ([id number]) [address], [address] [place] [address] Platelet mean volume (Bld) [Entitic vol] 8.3 fL Normal 7-12 [facility] Comment on above: Performed By: #### 2 4331-1, CMP, 3016-3, CBCA, 2857-1 #### [facility] ([id number]) [address], [address] [place] [address] Platelets (Bld) [#/Vol] 263 10*3/uL Normal 150-450 [facility] Comment on above: Performed By: #### 2 4331-1, CMP, 3016-3, CBCA, 2857-1 #### [facility] ([id number]) [address], [address] [place] [address] POLYCHROMASIA 1+ Abnormal NONE [facility] Comment on above: Performed By: #### 2 4331-1, CMP, 3016-3, CBCA, 2857-1 #### [facility] ([id number]) [address], [address] [place] [address] RBC COUNT 3.93 X10E12/L Low 4.10-5.70 [facility] Comment on above: Performed By: #### 2 4331-1, CMP, 3016-3, CBCA, 2857-1 #### [facility] ([id number]) [address], [address] [place] [address] SEG NEUTROPHIL 57.0 % Normal [facility] Comment on above: Performed By: #### 2 4331-1, CMP, 3016-3, CBCA, 2857-1 #### [facility] ([id number]) [address], [address] [place] [address] WBC (Bld) [#/Vol] 9.8 10*3/uL Normal 4.0-11.0 [facility] Comment on above: Performed By: #### 2 4331-1, CMP, 3016-3, CBCA, 2857-1 #### [facility] ([id number]) [address] [place] [address] COMPREHENSIVE METABOLIC PANE Abram 09-12-2023 Albumin [Mass/Vol] 2.9 g/dL Low 3.2-5.3 [facility] Comment on above: Performed By: #### 2 4331-1, CMP, 3016-3, CBCA, 2857-1 #### [facility] ([id number]) [address] [place] [address] ALP [Catalytic activity/Vol] 97 U/L Normal 39-130 [facility] Comment on above: Performed By: #### 2 4331-1, CMP, 3016-3, CBCA, 2857-1 #### [facility] ([id number]) [address] [place] [address] ALT [Catalytic activity/Vol] 21 U/L Normal 0-40 [facility] Comment on above: Performed By: #### 2 4331-1, CMP, 3016-3, CBCA, 2857-1 #### [facility] ([id number]) [address], [address] [place] [address] Anion gap [Moles/Vol] 9 mmol/L Normal 5-15 [place] Comment on above: Performed By: #### 2 4331-1, CMP, 3016-3, CBCA, 2857-1 #### [facility] ([id number]) [address], [address] [place] [address] AST [Catalytic activity/Vol] 23 U/L Normal 0-41 [facility] Comment on above: Performed By: #### 2 4331-1, CMP, 3016-3, CBCA, 2857-1 #### [facility] ([id number]) [address] [place] [address] Bilirubin [Mass/Vol] 0.5 mg/dL Normal 0.3-1.2 [facility] Comment on above: Performed By: #### 2 4331-1, CMP, 3016-3, CBCA, 2857-1 #### [facility] ([id number]) [address] [place] [address] Calcium [Mass/Vol] 8.9 mg/dL Normal 8.5-10.5 [facility] Comment on above: Performed By: #### 2 4331-1, CMP, 3016-3, CBCA, 2857-1 #### [facility] ([id number]) [address] [place] [address] Chloride [Moles/Vol] 108 mmol/L Normal 98-109 [facility] Comment on above: Performed By: #### 2 4331-1, CMP, 3016-3, CBCA, 2857-1 #### [facility] ([id number]) [address], [address] [place] [address] CO2 [Moles/Vol] 21 mmol/L Low 22-32 [facility] Comment on above: Performed By: #### 2 4331-1, CMP, 3016-3, CBCA, 2857-1 #### [facility] ([id number]) [address] [place] [address] Creatinine [Mass/Vol] 1.60 mg/dL High 0.70-1.20 [place] Comment on above: Result Comment: METH OD TRACEABLE TO IDMS STANDARD Performed By: #### 2 4331-1, CMP, 3016-3, CBCA, 2857-1 #### [facility] ([id number]) [address] [place] [address] GFR/1.73 sq M.predicted among non-blacks MDRD (S/P/Bld) [Vol rate/Area] 49 mL/min/{1.73_m2} Low >59 [facility] Comment on above: Result Comment: Reported eGFR is based on the CKD-EPI 2020 equation that does not use a race coefficient. Performed By: #### 2 4331-1, CMP, 3016-3, CBCA, 2857-1 #### [facility] ([id number]) [address] [place] [address] Glucose [Mass/Vol] 169 mg/dL High 65-99 [facility] Comment on above: Performed By: #### 2 4331-1, CMP, 3016-3, CBCA, 2857-1 #### [facility] ([id number]) [address] [place] [address] Potassium [Moles/Vol] 4.2 mmol/L Normal 3.5-5.0 [place] Comment on above: Performed By: #### 2 4331-1, CMP, 3016-3, CBCA, 2857-1 #### [facility] ([id number]) [address] [place] [address] Protein [Mass/Vol] 6.8 g/dL Normal 6.0-8.0 [facility] Comment on above: Performed By: #### 2 4331-1, CMP, 3016-3, CBCA, 2857-1 #### [facility] ([id number]) [address], [address] [place] [address] Sodium [Moles/Vol] 138 mmol/L Normal 134-146 [facility] Comment on above: Performed By: #### 2 4331-1, CMP, 3016-3, CBCA, 2857-1 #### [facility] ([id number]) [address], [address] [place] [address] Urea nitrogen [Mass/Vol] 18 mg/dL Normal 5-27 [facility] Comment on above: Performed By: #### 2 4331-1, CMP, 3016-3, CBCA, 2857-1 #### [facility] ([id number]) [address], [address] [place] [address] Glucose Glucometer (BldC) [M ass/Vol]on 09-12-2023 Glucose [Mass/Vol] 241 mg/dL High 65-99 [facility] Glucose [Mass/Vol] 277 mg/dL High 65-99 [facility] Glucose [Mass/Vol] 253 mg/dL High 65-99 [facility] MAGNESIUMon 09-12-2023 Magnesium [Mass/Vol] 2.2 mg/dL Normal 1.8-2.6 [facility] Comment on above: Performed By: #### 2 4331-1, CMP, 3016-3, CBCA, 2857-1 #### [facility] ([id number]) [address], [address] [place] [address] Magnesium [Mass/Vol] 1.9 mg/dL Normal 1.8-2.6 [facility] Comment on above: Performed By: #### 2 4331-1, CMP, 3016-3, CBCA, 2857-1 #### [facility] ([id number]) [address] [address] [place] [address] ASPIRATE CULTUREon 4 Bacteria identified Aer cx Nom (Asp) GRAM STAIN 10 to 24 WHITE BLOOD CELLS/LPF 0 SQUAMOUS EPITHELIAL CELLS/LPF MANY GRAM POSITIVE COCCI CULTURE RESULTS MANY STAPHYLOCOCCUS AUREUS METHICILLIN RESISTANT [ S = SUSCEPTIBLE R = RESISTANT I = INTERMEDIATE S-DO = Susceptible-dose dependent NS = Non-suscceptible NO = No Interpretation ] Organism: STAPHYLOCOCCUS AUREUS Antibiotic Interpretation HEIDI Status CEFAZOLIN R F CLINDAMYCIN S 0.25 F INDUCIBLE RESISTANCE TO CLINDAMYCIN NOT DETECTED OXACILLIN R >=4 F TRIMETH/SULFAMETHOXAZO LE S <=.5/9.5 F VANCOMYCIN S <=0.5 F DOXYCYCLINE S <=0.5 F Susceptible [facility] Comment on above: Performed By: #### 2 4331-1, CMP, 3016-3, CBCA, 2857-1 #### [facility] ([id number]) [address] [address] CBC AND AUTO DIFFon 09-11-19 24 ABSOLUTE BASOPHIL 0.1 X10E9/L Normal 0.0-0.2 [facility] Comment on above: Performed By: #### 2 4331-1, CMP, 3016-3, CBCA, 2857-1 #### [facility] ([id number]) [address] [address] ABSOLUTE NEUTROPHIL 6.7 X10E9/L High 1.5-6.6 [facility] Comment on above: Performed By: #### 2 4331-1, CMP, 3016-3, CBCA, 2857-1 #### [facility] ([id number]) [address] [address] Basophils/100 WBC (Bld) 0.9 % Normal [facility] Comment on above: Performed By: #### 2 4331-1, CMP, 3016-3, CBCA, 2857-1 #### [facility] ([id number]) [address] [address] [place] [address] Eosinophils (Bld) [#/Vol] 0.3 10*3/uL Normal 0.0-0.4 [facility] Comment on above: Performed By: #### 2 4331-1, CMP, 3016-3, CBCA, 2857-1 #### [facility] ([id number]) [address] [address] Eosinophils/100 WBC (Bld) 2.7 % Normal [facility] Comment on above: Performed By: #### 2 4331-1, CMP, 3016-3, CBCA, 2857-1 #### [facility] ([id number]) [address] [address] Erythrocyte distribution width (RBC) [Ratio] 15.4 % High 11.5-15.0 [facility] Comment on above: Performed By: #### 2 4331-1, [facility], 3016-3, CBCA, 2857-1 #### [facility] ([id number]) [address] [address] Hematocrit (Bld) [Volume fraction] 29.6 % Low 39-49 [facility] Comment on above: Performed By: #### 2 4331-1, [facility], 3016-3, CBCA, 2857-1 #### [facility] ([id number]) [address] [address] Hemoglobin (Bld) [Mass/Vol] 10.1 g/dL Low 13.0-17.0 [facility] Comment on above: Performed By: #### 2 4331-1, CMP, 3016-3, CBCA, 2857-1 #### [facility] ([id number]) [address] [address] Lymphocytes (Bld) [#/Vol] 2.1 10*3/uL Normal 1.0-3.5 [facility] Comment on above: Performed By: #### 2 4331-1, CMP, 3016-3, CBCA, 2857-1 #### [facility] ([id number]) [address], [address] [place] [address] Lymphocytes/100 WBC (Bld) 21.3 % Normal [facility] Comment on above: Performed By: #### 2 4331-1, CMP, 3016-3, CBCA, 2857-1 #### [facility] ([id number]) [address], [facility] [address] [place] [address] MCH (RBC) [Entitic mass] 27.2 pg Normal 27-34 [facility] Comment on above: Performed By: #### 2 4331-1, CMP, 3016-3, CBCA, 2857-1 #### [facility] ([id number]) [address], [address] [place] [address] MCHC (RBC) [Mass/Vol] 34.0 g/dL Normal 32-36 [place] Comment on above: Performed By: #### 2 4331-1, CMP, 3016-3, CBCA, 2857-1 #### [facility] ([id number]) [address] [address] [place] [address] MCV (RBC) [Entitic vol] 80 fL Normal 80-100 [facility] Comment on above: Performed By: #### 2 4331-1, CMP, 3016-3, CBCA, 2857-1 #### [facility] ([id number]) [address] [address] [place] [address] Monocytes (Bld) [#/Vol] 0.7 10*3/uL Normal 0-0.9 [facility] Comment on above: Performed By: #### 2 4331-1, CMP, 3016-3, CBCA, 2857-1 #### [facility] ([id number]) [address], [address] [place] [address] Monocytes/100 WBC (Bld) 7.1 % Normal P [facility] Comment on above: Performed By: #### 2 4331-1, CMP, 3016-3, CBCA, 2857-1 #### [facility] ([id number]) [address], [address] [place] [address] Neutrophils/100 WBC (Bld) 68.0 % Normal [facility] Comment on above: Performed By: #### 2 4331-1, CMP, 3016-3, CBCA, 2857-1 #### [facility] ([id number]) [address], [address] [place] [address] Platelet mean volume (Bld) [Entitic vol] 8.5 fL Normal 7-12 [facility] Comment on above: Performed By: #### 2 4331-1, CMP, 3016-3, CBCA, 2857-1 #### [facility] ([id number]) [address], [address] [place] [address] Platelets (Bld) [#/Vol] 266 10*3/uL Normal 150-450 [facility] Comment on above: Performed By: #### 2 4331-1, CMP, 3016-3, CBCA, 2857-1 #### [facility] ([id number]) [address], [address] [place] [address] RBC COUNT 3.70 X10E12/L Low 4.10-5.70 [facility] Comment on above: Performed By: #### 2 4331-1, CMP, 3016-3, CBCA, 2857-1 #### [facility] ([id number]) [address], [address] [place] [address] WBC (Bld) [#/Vol] 9.8 10*3/uL Normal 4.0-11.0 [facility] Comment on above: Performed By: #### 2 4331-1, CMP, 3016-3, CBCA, 2857-1 #### [facility] ([id number]) [address], [address] [place] [address] COMPREHENSIVE METABOLIC PANE Abram 09-11-2023 Albumin [Mass/Vol] 3.1 g/dL Low 3.2-5.3 [facility] Comment on above: Performed By: #### 2 4331-1, CMP, 3016-3, CBCA, 2857-1 #### [facility] ([id number]) [address], [address] [place] [address] ALP [Catalytic activity/Vol] 96 U/L Normal 39-130 [facility] Comment on above: Performed By: #### 2 4331-1, CMP, 3016-3, CBCA, 2857-1 #### [facility] ([id number]) [address], [address] [place] [address] ALT [Catalytic activity/Vol] 18 U/L Normal 0-40 [facility] Comment on above: Performed By: #### 2 4331-1, CMP, 3016-3, CBCA, 2857-1 #### [facility] ([id number]) [address], [address] [place] [address] Anion gap [Moles/Vol] 12 mmol/L Normal 5-15 [place] Comment on above: Performed By: #### 2 4331-1, CMP, 3016-3, CBCA, 2857-1 #### [facility] ([id number]) [address], [address] [place] [address] AST [Catalytic activity/Vol] 16 U/L Normal 0-41 [facility] Comment on above: Performed By: #### 2 4331-1, CMP, 3016-3, CBCA, 2857-1 #### [facility] ([id number]) [address] [address] [place] [address] Bilirubin [Mass/Vol] 0.6 mg/dL Normal 0.3-1.2 [facility] Comment on above: Performed By: #### 2 4331-1, CMP, 3016-3, CBCA, 2857-1 #### [facility] ([id number]) [address] [address] [place] [address] Calcium [Mass/Vol] 9.0 mg/dL Normal 8.5-10.5 [facility] Comment on above: Performed By: #### 2 4331-1, CMP, 3016-3, CBCA, 2857-1 #### [facility] ([id number]) [address] [address] [place] [address] Chloride [Moles/Vol] 105 mmol/L Normal 98-109 [facility] Comment on above: Performed By: #### 2 4331-1, CMP, 3016-3, CBCA, 2857-1 #### [facility] ([id number]) [address] [address] [place] [address] CO2 [Moles/Vol] 18 mmol/L Low 22-32 [facility] Comment on above: Performed By: #### 2 4331-1, CMP, 3016-3, CBCA, 2857-1 #### [facility] ([id number]) [address] [address] [place] [address] Creatinine [Mass/Vol] 1.54 mg/dL High 0.70-1.20 [place] Comment on above: Result Comment: METH OD TRACEABLE TO IDMS STANDARD Performed By: #### 2 4331-1, CMP, 3016-3, CBCA, 2857-1 #### [facility] ([id number]) [address] [address] [place] [address] GFR/1.73 sq M.predicted among non-blacks MDRD (S/P/Bld) [Vol rate/Area] 51 mL/min/{1.73_m2} Low >59 [facility] Comment on above: Result Comment: Reported eGFR is based on the CKD-EPI 2020 equation that does not use a race coefficient. Performed By: #### 2 4331-1, CMP, 3016-3, CBCA, 2857-1 #### [facility] ([id number]) [address], [address] [place] [address] Glucose [Mass/Vol] 255 mg/dL High 65-99 [facility] Comment on above: Performed By: #### 2 4331-1, CMP, 3016-3, CBCA, 2857-1 #### [facility] ([id number]) [address], [address] [place] [address] Potassium [Moles/Vol] 4.1 mmol/L Normal 3.5-5.0 [place] Comment on above: Performed By: #### 2 4331-1, [facility], 3016-3, CBCA, 2857-1 #### [facility] ([id number]) [address], [address] [place] [address] Protein [Mass/Vol] 7.2 g/dL Normal 6.0-8.0 [facility] Comment on above: Performed By: #### 2 4331-1, [facility], 3016-3, CBCA, 2857-1 #### [facility] ([id number]) [address], [address] [place] [address] Sodium [Moles/Vol] 135 mmol/L Normal 134-146 [facility] Comment on above: Performed By: #### 2 4331-1, CMP, 3016-3, CBCA, 2857-1 #### [facility] ([id number]) [address], [address] [place] [address] Urea nitrogen [Mass/Vol] 19 mg/dL Normal 5-27 [facility] Comment on above: Performed By: #### 2 4331-1, CMP, 3016-3, CBCA, 2857-1 #### [facility] ([id number]) [address], [address] [place] [address] Glucose Glucometer (BldC) [M ass/Vol]on 09-11-2023 Glucose [Mass/Vol] 283 mg/dL High 65-99 [facility] Glucose [Mass/Vol] 227 mg/dL High 65-99 [facility] Glucose [Mass/Vol] 222 mg/dL High 65-99 [facility] MAGNESIUMon 09-11-2023 Magnesium [Mass/Vol] 2.3 mg/dL Normal 1.8-2.6 [facility] Comment on above: Performed By: #### 2 4331-1, CMP, 3016-3, CBCA, 2857-1 #### [facility] ([id number]) [address], [address] [place] [address] Magnesium [Mass/Vol] 1.7 mg/dL Low 1.8-2.6 [facility] Comment on above: Performed By: #### 2 4331-1, CMP, 3016-3, CBCA, 2857-1 #### [facility] ([id number]) [address], [address] [place] [address] CBC AND AUTO DIFFon 09-10-19 24 ABSOLUTE BASOPHIL 0.1 X10E9/L Normal 0.0-0.2 [facility] Comment on above: Performed By: #### 1 9123-9, 1987-09, 05635-0, PINR, 15342-5, CMP, CBCA ####[facility] ([id number])[address] [place] [address] ABSOLUTE NEUTROPHIL 8.8 X10E9/L High 1.5-6.6 [facility] Comment on above: Performed By: #### 1 9122-9, 1987-09, , PINR, 73537-3, CMP, CBCA ####[facility] ([id number])[address] [place] [address] Basophils/100 WBC (Bld) 0.7 % Normal [facility] Comment on above: Performed By: #### 1 9123-01, 1987-09, , PINR, 36027-4, CMP, CBCA ####[facility] ([id number])[address] [place] [address] Eosinophils (Bld) [#/Vol] 0.2 10*3/uL Normal 0.0-0.4 [facility] Comment on above: Performed By: #### 1 9123-01, 1987-09, , PINR, 21150-0, CMP, CBCA ####[facility] ([id number])[address] [place] [address] Eosinophils/100 WBC (Bld) 1.6 % Normal [facility] Comment on above: Performed By: #### 1 9123-01, 1987-09, , PINR, 22980-6, CMP, CBCA ####[facility] ([id number])[address] [place] [address] Erythrocyte distribution width (RBC) [Ratio] 15.3 % High 11.5-15.0 [facility] Comment on above: Performed By: #### 1 9123-01, 1987-09, , PINR, 35044-3, CMP, CBCA ####[facility] ([id number])[address] [place] [address] Hematocrit (Bld) [Volume fraction] 33.5 % Low 39-49 [facility] Comment on above: Performed By: #### 1 9123-01, 1987-09, , PINR, 04048-6, CMP, CBCA ####[facility] ([id number])[address] [place] [address] Hemoglobin (Bld) [Mass/Vol] 11.0 g/dL Low 13.0-17.0 [facility] Comment on above: Performed By: #### 1 9123-01, 1987-09, , PINR, 06302-8, CMP, CBCA ####[facility] ([id number])[address] [place] [address] Lymphocytes (Bld) [#/Vol] 2.7 10*3/uL Normal 1.0-3.5 [facility] Comment on above: Performed By: #### 1 9123-01, 1987-09, , PINR, 68787-7, CMP, CBCA ####[facility] ([id number])[address] [place] [address] Lymphocytes/100 WBC (Bld) 21.3 % Normal [facility] Comment on above: Performed By: #### 1 9123-01, 1987-09, , PINR, 28263-8, CMP, CBCA ####[facility] ([id number])[address] [place] [address] MCH (RBC) [Entitic mass] 26.6 pg Low 27-34 [facility] Comment on above: Performed By: #### 1 9123-01, 1987-09, , PINR, 63425-4, CMP, CBCA ####[facility] ([id number])[address] [place] [address] MCHC (RBC) [Mass/Vol] 32.9 g/dL Normal 32-36 [place] Comment on above: Performed By: #### 1 9123-01, 1987-09, , PINR, 63311-7, CMP, CBCA ####[facility] ([id number])[address] [place] [address] MCV (RBC) [Entitic vol] 81 fL Normal 80-100 [facility] Comment on above: Performed By: #### 1 9123-01, 1987-09, , PINR, 23126-4, CMP, CBCA ####[facility] ([id number])[address] [place] [address] Monocytes (Bld) [#/Vol] 1.0 10*3/uL High 0-0.9 [facility] Comment on above: Performed By: #### 1 9123-01, 1987-09, , PINR, 92512-5, CMP, CBCA ####[facility] ([id number])[address] [place] [address] Monocytes/100 WBC (Bld) 7.4 % Normal [facility] Comment on above: Performed By: #### 1 9123-01, 1987-09, , PINR, 64177-9, CMP, CBCA ####[facility] ([id number])[address] [place] [address] Neutrophils/100 WBC (Bld) 69.0 % Normal [facility] Comment on above: Performed By: #### 1 9123-01, 1987-09, , PINR, 90522-5, CMP, CBCA ####[facility] ([id number])[address] [place] [address] Platelet mean volume (Bld) [Entitic vol] 7.8 fL Normal 7-12 [facility] Comment on above: Performed By: #### 1 9123-01, 1987-09, , PINR, 08426-6, CMP, CBCA ####[facility] ([id number])[address] [place] [address] Platelets (Bld) [#/Vol] 290 10*3/uL Normal 150-450 [facility] Comment on above: Performed By: #### 1 9123-01, 1987-09, 14404-0, PINR, 91478-7, CMP, CBCA ####[facility] ([id number])[address] [place] [address] RBC COUNT 4.14 X10E12/L Normal 4.10-5.70 [facility] Comment on above: Performed By: #### 1 9123-01, 1987-09, , PINR, 34074-7, CMP, CBCA ####[facility] ([id number])[address] [place] [address] WBC (Bld) [#/Vol] 12.8 10*3/uL High 4.0-11.0 [facility] Comment on above: Performed By: #### 1 9123-01, 1987-09, , PINR, 12882-6, CMP, CBCA ####[facility] ([id number])[address] [place] [address] COMPREHENSIVE METABOLIC PANE Abram 09-10-2023 Albumin [Mass/Vol] 3.5 g/dL Normal 3.2-5.3 [facility] Comment on above: Performed By: #### 1 9123-01, 1987-09, , PINR, 24850-3, CMP, CBCA ####[facility] ([id number])[address] [place] [address] ALP [Catalytic activity/Vol] 128 U/L Normal 39-130 [facility] Comment on above: Performed By: #### 1 9123-01, 1987-09, , PINR, 36858-4, CMP, CBCA ####[facility] ([id number])[address] [place] [address] ALT [Catalytic activity/Vol] 22 U/L Normal 0-40 [facility] Comment on above: Performed By: #### 1 9123-01, 1987-09, , PINR, 54507-4, CMP, CBCA ####[facility] ([id number])[address] [place] [address] Anion gap [Moles/Vol] 9 mmol/L Normal 5-15 [place] Comment on above: Performed By: #### 1 9123-01, 1987-09, , PINR, 50547-3, CMP, CBCA ####[facility] ([id number])[address] [place] [address] AST [Catalytic activity/Vol] 17 U/L Normal 0-41 [facility] Comment on above: Performed By: #### 1 9123-01, 1987-09, , PINR, 12129-9, CMP, CBCA ####[facility] ([id number])[address] [place] [address] Bilirubin [Mass/Vol] 0.6 mg/dL Normal 0.3-1.2 [facility] Comment on above: Performed By: #### 1 9123-01, 1987-09, , PINR, 77331-5, CMP, CBCA ####[facility] ([id number])[address] [place] [address] Calcium [Mass/Vol] 9.7 mg/dL Normal 8.5-10.5 [facility] Comment on above: Performed By: #### 1 9123-01, 1987-09, , PINR, 80920-4, CMP, CBCA ####[facility] ([id number])[address] [place] [address] Chloride [Moles/Vol] 101 mmol/L Normal 98-109 [facility] Comment on above: Performed By: #### 1 9123-01, 1987-09, , PINR, 78204-5, CMP, CBCA ####[facility] ([id number])[address] [place] [address] CO2 [Moles/Vol] 22 mmol/L Normal 22-32 [facility] Comment on above: Performed By: #### 1 9123-01, 1987-09, , PINR, 93449-9, CMP, CBCA ####[facility] ([id number])[address] [place] [address] Creatinine [Mass/Vol] 1.90 mg/dL High 0.70-1.20 [place] Comment on above: Result Comment: METH OD TRACEABLE TO IDMS STANDARD Performed By: #### 1 9123-01, 1987-09, , PINR, 37728-8, CMP, CBCA ####[facility] ([id number])[address] [place] [address] GFR/1.73 sq M.predicted among non-blacks MDRD (S/P/Bld) [Vol rate/Area] 40 mL/min/{1.73_m2} Low >59 [facility] Comment on above: Result Comment: Reported eGFR is based on the CKD-EPI 2020 equation that does not use a race coefficient. Performed By: #### 1 9123-01, 1987-09, , PINR, 41346-5, CMP, CBCA ####[facility] ([id number])[address] [place] [address] Glucose [Mass/Vol] 349 mg/dL High 65-99 [facility] Comment on above: Performed By: #### 1 9123-01, 1987-09, , PINR, 16248-1, CMP, CBCA ####[facility] ([id number])[address], [place] [address] Potassium [Moles/Vol] 4.3 mmol/L Normal 3.5-5.0 [place] Comment on above: Performed By: #### 1 9123-01, 1987-09, , PINR, 08719-0, CMP, CBCA ####[facility] ([id number])[address] [place] [address] Protein [Mass/Vol] 8.5 g/dL High 6.0-8.0 [facility] Comment on above: Performed By: #### 1 9123-01, 1987-09, , PINR, 05042-0, CMP, CBCA ####[facility] ([id number])[address] [place] [address] Sodium [Moles/Vol] 132 mmol/L Low 134-146 [facility] Comment on above: Performed By: #### 1 9123-01, 1987-09, , PINR, 21707-7, CMP, CBCA ####[facility] ([id number])[address] [place] [address] Urea nitrogen [Mass/Vol] 23 mg/dL Normal 5-27 [facility] Comment on above: Performed By: #### 1 9123-01, 1987-09, , PINR, 51730-0, CMP, CBCA ####[facility] ([id number])[address] [place] [address]92 CRP [Mass/Vol]on 09-10-2023 C REACTIVE PROTEIN 12.0 mg/dL High 0.000-0.744 [facility] Comment on above: Performed By: #### 1 9123-01, 1987-09, , PINR, 03789-9, CMP, CBCA ####[facility] ([id number])[address] [place] [address] BRAIN WO CONTon 4 CT BRAIN WO CONT CT BRAIN WO CONT History: Scalp abscess. Swelling right side of head with drainage of pus. Diabetic. No fever. Procedure: Standard CT of the brain was performed without intravenous contrast. Dose reduction technique was used. All CT scans at this facility use dose modulation, iterative reconstruction, and/or weight based dosing when appropriate to reduce radiation dose to as low as reasonably achievable.All CT scans at this facility use dose modulation, iterative reconstruction, and/or weight based dosing when appropriate to reduce radiation dose to as low as reasonably achievable. Findings: Comparison is made to 09/26/2007. CT of the brain was obtained without contrast. The volumes of the ventricular system, sulci, and basilar cisterns are grossly unchanged since the prior study. There is no significant change in the appearance of the brain. Significant soft tissue swelling overlies the right temporalis muscle. There is no bone destruction or erosion. An area of abnormal attenuation lies mostly superficial to the temporalis muscle but may involve it posteriorly. It measures 7.7 cm in anterior-posterior dimension, 2.2 cm in thickness and approximately 6 cm in greatest superior-inferior extent. There is another small soft tissue lesion protruding from the midpoint of this lesion. It may be a Krysta, superficial associated abscess, or even surgical packing. There is no obvious gas within the soft tissues. The mastoids and middle ear cavity are normally aerated on both sides Impression: Marked soft tissue abnormality is likely an abscess that is centered within the subcutaneous fat. Some of the abscess may involve the posterior portion of the temporalis muscle. There is no obvious bone destruction. In view of the extent of the infection and the high attenuation of this area, which is suggestive of very thick material, suggest surgical drainage in this diabetic patient. Finalized by Josef Sosa MD on 09/10/2023 2:18 PM Normal [facility] Glucose Glucometer (dC) [M ass/Vol]on 09-10-2023 Glucose [Mass/Vol] 307 mg/dL High 65-99 [facility] Glucose [Mass/Vol] 266 mg/dL High 65-99 [facility] Lactate (P katerin) [Moles/Vol]o n 09-10-2023 LACTATE W/REFLEX 1.2 mmol/L Normal 0.4-2.0 [facility] Comment on above: Result Comment: Result did not trigger repeat Lactate, re-order if needed. Performed By: #### 1 9122-9, 1987-09, 78213-8, PINR, 60728-8, CMP, CBCA ####[facility] [place] ([id number])[address] [place] [id number] MAGNESIUMon 09-10-2023 Magnesium [Mass/Vol] 1.9 mg/dL Normal 1.8-2.6 [facility] Comment on above: Performed By: #### 1 9123-01, 1987-09, , PINR, 81164-0, CMP, CBCA ####[facility] [place] [place] ([id number])[address] [place] [id number] PROTIME AND INRon 09-10-2023 INR Coag (PPP) [Relative time] 1.3 {INR} High 0.8-1.1 [facility] Comment on above: Performed By: #### 1 9, 1987-09, , PINR, 09260-2, CMP, CBCA ####[facility] [place] ([id number])[address] [place] [address] PT Coag (PPP) [Time] 14.8 s High 9.8-13.2 [facility] Comment on above: Result Comment: NEW REFERENCE RANGE Performed By: #### 1 9123-01, 1987-09, , PINR, 29962-2, CMP, CBCA ####[facility] [place] ([id number])[address] [place] [address]111 aPTT Coag (PPP) [Time]on aPTT Coag (Bld) [Time] 32 s Normal 26-37 [facility] Comment on above: Result Comment: NEW REFERENCE RANGE Performed By: #### 1 9123-01, 1987-09, 31168-3, PINR, 35303-3, CMP, CBCA ####[facility] [place] ([id number])[address] [place] [address], [place] [address] BASIC METABOLIC PANLon 08-30 Anion gap [Moles/Vol] 11 mmol/L Normal 5-15 [place] Comment on above: Performed By: #### RUSSELL aHque MP, 718-7 #### [facility] ([id number]) [address], [address] [place] [address] Calcium [Mass/Vol] 10.2 mg/dL Normal 8.5-10.5 [facility] Comment on above: Performed By: #### RUSSELL Haque MP, 718-7 #### [facility] ([id number]) [address], [address] [place] [address] Chloride [Moles/Vol] 98 mmol/L Normal 98-109 [facility] Comment on above: Performed By: #### RUSSELL Haque MP, 718-7 #### [facility] ([id number]) [address], [address] [place] [address] CO2 [Moles/Vol] 28 mmol/L Normal 22-32 [facility] Comment on above: Performed By: #### RUSSELL Hqaue MP, 718-7 #### [facility] ([id number]) [address], [address] [place] [address] Creatinine [Mass/Vol] 2.46 mg/dL High 0.60-1.30 [place] Comment on above: Result Comment: METH OD TRACEABLE TO IDMS STANDARD Performed By: #### RUSSELL Haque MP, 718-7 #### [facility] ([id number]) [address], [address] [place] [address] GFR/1.73 sq M.predicted among non-blacks MDRD (S/P/Bld) [Vol rate/Area] 29 mL/min/{1.73_m2} Low >59 [facility] Comment on above: Result Comment: Reported eGFR is based on the CKD-EPI 2020 equation that does not use a race coefficient. Performed By: #### RUSSELL Haque MP 718-7 #### [facility] ([id number]) [address], [address] [place] [address] Glucose [Mass/Vol] 292 mg/dL High 65-99 [facility] Comment on above: Performed By: #### RUSSELL Haque MP 718-7 #### [facility] ([id number]) [address] [address] [place] [address] Potassium [Moles/Vol] 4.2 mmol/L Normal 3.5-5.0 [place] Comment on above: Performed By: #### RUSSELL Haque MP 718-7 #### [facility] ([id number]) [address], [address] [place] [address] Sodium [Moles/Vol] 137 mmol/L Normal 134-146 [facility] Comment on above: Performed By: #### RUSSELL Haque MP 718-7 #### [facility] ([id number]) [address] [address] [place] [address] Urea nitrogen [Mass/Vol] 39 mg/dL High 5-23 [facility] Comment on above: Performed By: #### RUSSELL Haque MP 718-7 #### [facility] ([id number]) [address], [address] [place] [address] HEMOGLOBINon 08-31-2023 Hemoglobin (Bld) [Mass/Vol] 12.4 g/dL Low 13.0-17.0 [facility] Comment on above: Performed By: #### RUSSELL Haque MP 718-7 #### [facility] ([id number]) [address], [address] [place] [address] PROTIME AND INRon 08-31-2023 INR Coag (PPP) [Relative time] 1.1 {INR} Normal 0.8-1.1 [facility] Comment on above: Performed By: #### B RUSSELL CHANDRA, 718-7 #### [facility] ([id number]) [address], [address] [place] [address] PT Coag (PPP) [Time] 12.5 s Normal 9.8-13.2 [facility] Comment on above: Performed By: #### B RUSSELL CHANDRA, 718-7 #### [facility] ([id number]) [address], [address] [place] [address] URINALYSISon 08-31-2023 Bilirubin Ql (U) Negative Normal NEG [facility] BLOOD/HGB Negative Normal NEG [facility] Color (U) YELLOW Normal YELLOW [facility] Glucose Ql (U) Negative Normal NEG [facility] Ketones Ql (U) Negative Normal NEG [facility] Leukocyte esterase Test strip Ql (U) Trace Abnormal NEG [facility] MUCOUS PRESENT Abnormal NONE [facility] Nitrite Ql (U) Negative Normal NEG [facility] pH (U) 6.0 [pH] Normal 5.0-8.5 [facility] Protein Ql (U) Trace Abnormal NEG [facility] R.B.CELLS 1 /hpf Normal 0-5 [facility] Specific gravity (U) [Rel density] 1.012 Normal 1.003-1.035 [facility] SQUAMOUS EPITHELIUM 1 /hpf Normal 0-5 [facility] TURBIDITY CLEAR Normal CLEAR [facility] Urobilinogen (U) [Mass/Vol] mg/dL Normal <1.1 [facility] W.B.CELLS 2 /hpf Normal 0-5 [facility] URINE CULTUREon 08-31-2023 Bacteria identified Cx Nom (U) CULTURE RESULTS >100,000 ORGANISMS/ML NORMAL UROGENITAL BONY Normal [facility] Comment on above: Performed By: #### 6 30-4 ####[facility] ([id number])[address], [place] [address] CBC AND AUTO DIFFon 07-17-19 24 ABSOLUTE BASOPHIL 0.1 X10E9/L Normal 0.0-0.2 [facility] Comment on above: Performed By: #### 2 4331-1, CMP, 3016-3, CBCA, 2857-1 #### [facility] ([id number]) [address], [address] [place] [address] ABSOLUTE NEUTROPHIL 4.0 X10E9/L Normal 1.5-6.6 [facility] Comment on above: Performed By: #### 2 4331-1, CMP, 3016-3, CBCA, 2857-1 #### [facility] ([id number]) [address], [address] [place] [address] Basophils/100 WBC (Bld) 0.8 % Normal [facility] Comment on above: Performed By: #### 2 4331-1, CMP, 3016-3, CBCA, 2857-1 #### [facility] ([id number]) [address], [address] [place] [address] Eosinophils (Bld) [#/Vol] 0.4 10*3/uL Normal 0.0-0.4 [facility] Comment on above: Performed By: #### 2 4331-1, CMP, 3016-3, CBCA, 2857-1 #### [facility] ([id number]) [address], [address] [place] [address] Eosinophils/100 WBC (Bld) 5.0 % Normal [facility] Comment on above: Performed By: #### 2 4331-1, CMP, 3016-3, CBCA, 2857-1 #### [facility] ([id number]) [address] [address] [place] [address] Erythrocyte distribution width (RBC) [Ratio] 15.8 % High 11.5-15.0 [facility] Comment on above: Performed By: #### 2 4331-1, CMP, 3016-3, CBCA, 2857-1 #### [facility] ([id number]) [address] [address] [place] [address] Hematocrit (Bld) [Volume fraction] 38.3 % Low 39-49 [facility] Comment on above: Performed By: #### 2 4331-1, CMP, 3016-3, CBCA, 2857-1 #### [facility] ([id number]) [address] [address] [place] [address] Hemoglobin (Bld) [Mass/Vol] 12.7 g/dL Low 13.0-17.0 [facility] Comment on above: Performed By: #### 2 4331-1, [facility], 3016-3, CBCA, 2857-1 #### [facility] ([id number]) [address] [address] [place] [address] Lymphocytes (Bld) [#/Vol] 2.4 10*3/uL Normal 1.0-3.5 [facility] Comment on above: Performed By: #### 2 4331-1, [facility], 3016-3, CBCA, 2857-1 #### [facility] ([id number]) [address] [address] [place] [address] Lymphocytes/100 WBC (Bld) 32.6 % Normal [facility] Comment on above: Performed By: #### 2 4331-1, CMP, 3016-3, CBCA, 2857-1 #### [facility] ([id number]) [address] [address] [place] [address] MCH (RBC) [Entitic mass] 27.1 pg Normal 27-34 [facility] Comment on above: Performed By: #### 2 4331-1, CMP, 3016-3, CBCA, 2857-1 #### [facility] ([id number]) [address] [address] [place] [address] MCHC (RBC) [Mass/Vol] 33.1 g/dL Normal 32-36 [facility] Comment on above: Performed By: #### 2 4331-1, CMP, 3016-3, CBCA, 2857-1 #### [facility] ([id number]) [address] [address] [place] [address] MCV (RBC) [Entitic vol] 82 fL Normal 80-100 [facility] Comment on above: Performed By: #### 2 4331-1, CMP, 3016-3, CBCA, 2857-1 #### [facility] ([id number]) [address] [address] [place] [address] Monocytes (Bld) [#/Vol] 0.5 10*3/uL Normal 0-0.9 [facility] Comment on above: Performed By: #### 2 4331-1, CMP, 3016-3, CBCA, 2857-1 #### [facility] ([id number]) [address] [address] Monocytes/100 WBC (Bld) 7.0 % Normal P [facility] Comment on above: Performed By: #### 2 4331-1, CMP, 3016-3, CBCA, 2857-1 #### [facility] ([id number]) [address] [address] Neutrophils/100 WBC (Bld) 54.6 % Normal [facility] Comment on above: Performed By: #### 2 4331-1, CMP, 3016-3, CBCA, 2857-1 #### [facility] ([id number]) [address] [address] [place] [address] Platelet mean volume (Bld) [Entitic vol] 8.7 fL Normal 7-12 [facility] Comment on above: Performed By: #### 2 4331-1, CMP, 3016-3, CBCA, 2857-1 #### [facility] ([id number]) [address] [address] [place] [address] Platelets (Bld) [#/Vol] 198 10*3/uL Normal 150-450 [facility] Comment on above: Performed By: #### 2 4331-1, CMP, 3016-3, CBCA, 2857-1 #### [facility] ([id number]) [address] [address] [place] [address] RBC COUNT 4.67 X10E12/L Normal 4.10-5.70 [facility] Comment on above: Performed By: #### 2 4331-1, CMP, 3016-3, CBCA, 2857-1 #### [facility] ([id number]) [address] [address] WBC (Bld) [#/Vol] 7.3 10*3/uL Normal 4.0-11.0 [facility] Comment on above: Performed By: #### 2 4331-1, CMP, 3016-3, CBCA, 2857-1 #### [facility] ([id number]) [address], [facility] [address] [place] [address] COMPREHENSIVE METABOLIC PANE Abram 07-17-2023 Albumin [Mass/Vol] 4.4 g/dL Normal 3.2-5.3 [facility] Comment on above: Performed By: #### 2 4331-1, CMP, 3016-3, CBCA, 2857-1 #### [facility] ([id number]) [address] [address] [place] [address] ALP [Catalytic activity/Vol] 136 U/L High 39-130 [facility] Comment on above: Performed By: #### 2 4331-1, CMP, 3016-3, CBCA, 2857-1 #### [facility] ([id number]) [address], [address] [place] [address] ALT [Catalytic activity/Vol] 35 U/L Normal 0-40 [facility] Comment on above: Performed By: #### 2 4331-1, CMP, 3016-3, CBCA, 2857-1 #### [facility] ([id number]) [address], [address] [place] [address] Anion gap [Moles/Vol] 11 mmol/L Normal 5-15 [place] Comment on above: Performed By: #### 2 4331-1, CMP, 3016-3, CBCA, 2857-1 #### [facility] ([id number]) [address], [address] [place] [address] AST [Catalytic activity/Vol] 30 U/L Normal 0-41 [facility] Comment on above: Performed By: #### 2 4331-1, CMP, 3016-3, CBCA, 2857-1 #### [facility] ([id number]) [address], [address] [place] [address] Bilirubin [Mass/Vol] 0.4 mg/dL Normal 0.3-1.2 [facility] Comment on above: Performed By: #### 2 4331-1, CMP, 3016-3, CBCA, 2857-1 #### [facility] ([id number]) [address], [address] [place] [address] Calcium [Mass/Vol] 9.7 mg/dL Normal 8.5-10.5 [facility] Comment on above: Performed By: #### 2 4331-1, CMP, 3016-3, CBCA, 2857-1 #### [facility] ([id number]) [address] [place] [address] Chloride [Moles/Vol] 104 mmol/L Normal 98-109 [facility] Comment on above: Performed By: #### 2 4331-1, CMP, 3016-3, CBCA, 2857-1 #### [facility] ([id number]) [address], [address] [place] [address] CO2 [Moles/Vol] 22 mmol/L Normal 22-32 [facility] Comment on above: Performed By: #### 2 4331-1, CMP, 3016-3, CBCA, 2857-1 #### [facility] ([id number]) [address], [address] [place] [address] Creatinine [Mass/Vol] 1.76 mg/dL High 0.60-1.30 [place] Comment on above: Result Comment: METH OD TRACEABLE TO IDMS STANDARD Performed By: #### 2 4331-1, CMP, 3016-3, CBCA, 2857-1 #### [facility] ([id number]) [address], [address] [place] [address] GFR/1.73 sq M.predicted among non-blacks MDRD (S/P/Bld) [Vol rate/Area] 44 mL/min/{1.73_m2} Low >59 [facility] Comment on above: Result Comment: Reported eGFR is based on the CKD-EPI 2020 equation that does not use a race coefficient. Performed By: #### 2 4331-1, CMP, 3016-3, CBCA, 2857-1 #### [facility] ([id number]) [address], [address] [place] [address] Glucose [Mass/Vol] 220 mg/dL High 65-99 [facility] Comment on above: Performed By: #### 2 4331-1, CMP, 3016-3, CBCA, 2857-1 #### [facility] ([id number]) [address], [address] [place] [address] Potassium [Moles/Vol] 4.8 mmol/L Normal 3.5-5.0 [place] Comment on above: Performed By: #### 2 4331-1, CMP, 3016-3, CBCA, 2857-1 #### [facility] ([id number]) [address], [address] [place] [address] Protein [Mass/Vol] 8.3 g/dL High 6.0-8.0 [facility] Comment on above: Performed By: #### 2 4331-1, CMP, 3016-3, CBCA, 2857-1 #### [facility] ([id number]) [address] [place] [address] Sodium [Moles/Vol] 137 mmol/L Normal 134-146 [facility] Comment on above: Performed By: #### 2 4331-1, CMP, 3016-3, CBCA, 2857-1 #### [facility] ([id number]) [address] [place] [address] Urea nitrogen [Mass/Vol] 30 mg/dL High 5-23 [facility] Comment on above: Performed By: #### 2 4331-1, CMP, 3016-3, CBCA, 2857-1 #### [facility] ([id number]) [address], [address] [place] [address] Lipid 1996 panelon 4 Cholesterol [Mass/Vol] 125 mg/dL Low 150-200 [facility] Comment on above: Performed By: #### 2 4331-1, CMP, 3016-3, CBCA, 2857-1 #### [facility] ([id number]) [address] [place] [address] Cholesterol in HDL [Mass/Vol] 30 mg/dL Low >39 [facility] Comment on above: Result Comment: HDL <40 mg/dL - High Risk HDL > or = 40mg/dL- Desirable HDL >60 mg/dL - Negative Risk Performed By: #### 2 4331-1, CMP, 3016-3, CBCA, 2857-1 #### [facility] ([id number]) [address] [place] [address] Cholesterol in LDL [Mass/Vol] 41 mg/dL Normal <130 [facility] Comment on above: Result Comment: LDL <100 mg/dL - Desirable LDL >160 mg/dL - High Risk Performed By: #### 2 4331-1, CMP, 3016-3, CBCA, 2857-1 #### [facility] ([id number]) [address] [place] [address] Cholesterol in VLDL [Mass/Vol] 54 mg/dL High 0-30 [facility] Comment on above: Performed By: #### 2 4331-1, CMP, 3016-3, CBCA, 2857-1 #### [facility] ([id number]) [address], [address] [place] [address] CHOLESTEROL:HDL 4.2 Normal 1.0-5.0 [facility] Comment on above: Performed By: #### 2 4331-1, CMP, 3016-3, CBCA, 2857-1 #### [facility] ([id number]) [address] [place] [address] Triglyceride [Mass/Vol] 268 mg/dL High 27-150 [facility] Comment on above: Performed By: #### 2 4331-1, [facility], 3016-3, CBCA, 2857-1 #### [facility] ([id number]) [address] [place] [address] Prostate specific Ag [Mass/V ol]on 07-17-2023 PSA SCREEN 1.75 ng/mL Normal 0.00-4.00 [facility] Comment on above: Result Comment: The method used for this test is Gera NatureBox DXI chemiluminescent immunoassay. Values obtained by different assay methods cannot be used interchangeably. Performed By: #### 2 4331-1, [facility], 3016-3, CBCA, 2857-1 #### [facility] ([id number]) [address] [place] [address] TSH Qnon 07-17-2023 TSH 1.67 uIU/mL Normal 0.49-4.67 [facility] Comment on above: Performed By: #### 2 4331-1, [facility], 3016-3, CBCA, 2857-1 #### [facility] ([id number]) [address] [place] [address] Glucose Glucometer (BldC) [M ass/Vol]on 06-26-2023 Glucose [Mass/Vol] 412 mg/dL Critically high 65-99 P [facility] Glucose [Mass/Vol] 462 mg/dL Critically high 65-99 P [facility] XR ANKLE RT MIN 3 VIEWSon XR ANKLE RT MIN 3 VIEWS EXAM: XR ANKLE R T MIN 3 VIEWS HISTORY: The patient is a 60-year-old male with acute right ankle pain. COMPARISON: None. FINDINGS: I do not identify any acute or ununited fractures within the ankle joint. The ankle mortise is intact and relatively uniform. The syndesmosis is maintained. There is lateral soft tissue swelling. Incidentally noted are calcaneal spurs as well as ossification within the plantar fascia. IMPRESSION: No fractures seen. Electronically authenticated by: CORDELL BAILEY Date: 2020-10-13 22:11 Normal [facility] URIC ACID SERUMon 10-13-2020 Urate [Mass/Vol] 9.5 mg/dL Critically high 3.5-8.5 [facility] Comment on above: Performed By: #### U ABDULKADIR #### [facility] [address] [place], [place] [address] Mare Soriano Hemoglobin A1Con 01-11-2020 HbA1c (Bld) [Mass fraction] 7.1 % High 4.0-6.0 [facility] Comment on above: Performed By: #### G LYHGB #### [facility] [address] [place], [place] [id number] Forensic Technician: Rogelio Edmonds MD HbA1c (Bld) [Mass fraction] 157 mg/dL Normal [facility] Comment on above: Result Comment: The ADA and AACC recommend providing the estimated average glucose result to permit better patient understanding of their HBA1c result. Performed By: #### G LYHGB #### [facility] [address] [place], [place] [id number] Forensic Technician: Rogelio Edmonds MD Vital Signs Date Time Vital Sign Value Performing Clinician Maria Estheri litiván 02-22-2024 13:40-0400 Body temperature 98 [degF] PHYSICIAN NO [facility] 02-22-2024 13:40-0400 SaO2% (BldA) [Mass fraction] 97 % PHYSICIAN NO [facility] 02-22-2024 07:30-0400 Diastolic blood pressure 81 mm[Hg] PHYSICIAN NO [facility] 02-22-2024 07:30-0400 Heart rate 78 /min PHYSICIAN NO [facility] 02-22-2024 07:30-0400 Systolic blood pressure 129 mm[Hg] PHYSICIAN NO [facility] 02-21-2024 19:45-0400 Respiratory rate 18 /min PHYSICIAN NO [facility] 02-21-2024 12:59-0400 Body weight 128.27 kg PHYSICIAN NO [facility] 02-20-2024 02:09-0400 Body height 187.96 cm PHYSICIAN NO [facility] 07-27-2023 15:33-0500 Body height 188 cm Sharmaine Kiser MD Work Phone: [facility] 07-27-2023 15:33-0500 Body mass index (BMI) [Ratio] 38.52 kg/m2 Sharmaine Kiser MD Work Phone: [facility] 07-27-2023 15:33-0500 Body weight 136.08 kg Sharmaine Kiser MD Work Phone: [facility] 07-27-2023 15:33-0500 Diastolic blood pressure 67 mm[Hg] Sharmaine Kiser MD Work Phone: [facility] 07-27-2023 15:33-0500 Heart rate 75 /min Sharmaine Kiser MD Work Phone: [facility] 07-27-2023 15:33-0500 Systolic blood pressure 116 mm[Hg] Sharmaine Kiser MD Work Phone: [facility] 06-16-2023 13:21-0500 Body height 188 cm Jarett HOLLIDAY Work Phone: [facility] 06-16-2023 13:21-0500 Body mass index (BMI) [Ratio] 37.88 kg/m2 Jarett HOLLIDAY Work Phone: [facility] 06-16-2023 13:21-0500 Body weight 133.81 kg Jarett HOLLIDAY Work Phone: [facility] 06-16-2023 13:21-0500 Diastolic blood pressure 72 mm[Hg] Jarett HOLLIDAY Work Phone: [facility] 06-16-2023 13:21-0500 Heart rate 80 /min Jarett HOLLIDAY Work Phone: [facility] 06-16-2023 13:21-0500 Systolic blood pressure 120 mm[Hg] Jarett HOLLIDAY Work Phone: [facility] 06-02-2023 13:42-0500 Body height 188 cm Jarett HOLLIDAY Work Phone: [email or web address] 06-02-2023 13:42-0500 Body mass index (BMI) [Ratio] 37.88 kg/m2 Jarett HOLLIDAY Work Phone: [email or web address] 06-02-2023 13:42-0500 Body weight 133.81 kg Jarett HOLLIDAY Work Phone: [email or web address] 06-02-2023 13:42-0500 Diastolic blood pressure 74 mm[Hg] Jarett HOLLIDAY Work Phone: [email or web address] 06-02-2023 13:42-0500 Heart rate 64 /min Jarett HOLLIDAY Work Phone: [email or web address] 06-02-2023 13:42-0500 Systolic blood pressure 146 mm[Hg] Jarett HOLLIDAY [facility] Phone: [facility] En[facility] Encounter Date Encounter Type Care Provider Facility Start: 03-17-2024 End: 03-17-2024 ambulatory [facility] Start: 03-13-2024 End: 03-15-2024 Evaluation and management of inpatient [facility] Start: 03-13-2024 End: 03-14-2024 Refill Alejandra Leahy MEDICAL RECORD TECHNICIAN-LOCK AND DAM OPERATOR Work Phone: [facility] Comment on above: Edema, unspecified; Acute kidney injury ([facility] Start: 03-09-2024 End: 03-09-2024 Emergency department patient visit [facility] Start: 03-07-2024 ambulatory PHYSICIAN NO FAMILY Fac ility:[facility] Start: 03-06-2024 End: 03-06-2024 Emergency department patient visit [facility] Start: 02-20-2024 Non-patient / Non-visit PHYSICIAN NO [facility] Work Phone: Start: 02-20-2024 End: 02-22-2024 Evaluation and management of inpatient PHYSICIAN TATE [facility] Work Phone: Start: 02-19-2024 End: 02-19-2024 [facility] Start: 02-19-2024 Registered Recurring PHYSICIAN TATE MANSFIELD [facility] Start: 01-25-2024 End: 01-25-2024 ambulatory [facility] Start: 01-25-2024 End: 01-26-2024 Emergency department patient visit [facility] Start: 01-24-2024 End: 01-26-2024 Emergency department patient visit [facility] Start: 01-24-2024 End: 01-26-2024 Emergency department patient visit [facility] Start: 01-18-2024 End: 01-18-2024 ambulatory FRANC DIAZ Not Available Start: 01-05-2024 End: 01-05-2024 ambulatory CATALINA Choi CSOTTY [facility] Start: 12-21-2023 End: 12-21-2023 Evaluation and management of inpatient ROCAEL CORTES [facility] Start: 12-21-2023 End: 12-21-2023 Evaluation and management of inpatient SHARMAINE [facility] Start: 12-07-2023 End: 12-07-2023 [facility] Start: 11-24-2023 End: 11-24-2023 ambulatory GILBERTO Monteiro REAGAN [facility] Start: 11-10-2023 End: 11-10-2023 ambulatory GILBERTO KIRK [facility] Start: 11-03-2023 End: 11-03-2023 ambulatory MASONOSCAR BRADY [facility] Start: 10-27-2023 End: 10-27-2023 ambulatory GILBERTO KIRK [facility] Start: 10-26-2023 End: 10-26-2023 Evaluation and management of inpatient BETH Pickens PAMELA [facility] Start: 10-25-2023 End: 10-25-2023 ambulatory [facility] Start: 10-20-2023 End: 10-20-2023 ambulatory GILBERTO Monteiro REAGAN [facility] Start: 10-13-2023 End: 10-13-2023 ambulatory GILBERTO Monteiro REAGAN [facility] Start: 10-12-2023 End: 10-12-2023 ambulatory [facility] [facility] Start: 10-12-2023 End: 10-12-2023 ambulatory [facility] Start: 10-07-2023 End: 10-07-2023 ambulatory YANI Nelia PRABHAKAR [facility] Start: 10-06-2023 End: 10-06-2023 ambulatory GILEBRTO Monteiro [facility] Start: 10-04-2023 End: 10-04-2023 Emergency department patient visit [facility] Start: 10-04-2023 End: 10-04-2023 ambulatory FRANC DIAZ Not Available Start: 09-29-2023 End: 09-29-2023 ambulatory GILBERTO [facility] Start: 09-27-2023 End: 09-27-2023 ambulatory [facility] Start: 09-22-2023 End: 09-22-2023 ambulatory GILBERTO Monte[facility] Start: 09-20-2023 End: 09-20-2023 ambulatory KALE SWANSON [facility] Start: 09-14-2023 End: 09-14-2023 Emergency department patient visit [facility] Start: 09-14-2023 End: 09-14-2023 Evaluation and management of inpatient BIENVENIDO BACK [facility] Start: 09-10-2023 End: 09-14-2023 Evaluation and management of inpatient BLAYNE ZEE [facility] Start: 08-31-2023 End: 08-31-2023 ambulatory [facility] Start: 08-31-2023 Encounter for other preprocedural examination [facility] Start: 07-27-2023 End: 07-27-2023 Office outpatient visit 25 minutes Sharmaine Kiser MD Work Phone: [facility] Comment on above: Phimosis (Primary Dx ) Start: 07-27-2023 End: 07-27-2023 ambulatory SHARMAINE Selby ZORAIDA [facility] Start: 07-17-2023 End: 07-17-2023 ambulatory [facility] Start: 06-26-2023 End: 06-26-2023 Emergency department patient visit [facility] Start: 06-21-2023 End: 06-21-2023 ambulatory FRANC Lozano INDY Not Available Start: 06-16-2023 End: 06-16-2023 Office outpatient visit 15 minutes Jarett HOLLIDAY Work Phone: [facility] Comment on above: Phimosis (Primary Dx ) Start: 06-16-2023 End: 06-16-2023 ambulatory JARETT TRIPP [facility] Start: 06-02-2023 End: 06-02-2023 Office outpatient visit 15 minutes Jarett HOLLIDAY Work Phone: [facility] Comment on above: Phimosis (Primary Dx ) Start: 06-02-2023 End: 06-02-2023 ambulatory JARETTKAYY TRIPP [facility] Start: 10-13-2020 End: 10-14-[address] TYREL ALVAREZ Facility: Start: 01-11-2020 End: 01-11-2020 Patient encounter procedure [facility] Start: 01-10-2020 End: 01-10-2020 Subsequent hospital visit by physician Sathish VOGT [place] [facility] Comment on above: Type 2 diabetes michell itus without complication, without long- term current use of insulin (HCC) Procedures Date Procedure Procedure Detail Performing Clinician Start: 07-27-2023 Follow-up visit Follow-up SHARMAINE KISER Start: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 recognition program. While intending to generate a timely document that accurately reflects the content of the visit, no guarantee can be provided that every grammatical or spelling mistake has been or will be identified or corrected. Thank you for your understanding. documented in this encounterPro[facility] History of Present illness Narrative* MG Millard - 06/16/2023 1:45 PM EST Images from the original note were not included. [address] [place] [address] A [facility] [id number] Patient: Joshua Holder Date of : 1960 Encounter Date: 06/16/2023 History of Present Illness: The patient is a 62 y.o. male, an established patient, and is here for follow- up. Please see his history below. He reports that the phimosis it is slightly improved. He has not had any bleeding or pain. Summary of old records: Notes from ma 06/02/23: He has been using clobetasol twice daily. Upon questioning, it sounds like he is only applying it to unaffected area. He still has phimosis and swelling. He reports that his glucose has been stable Summary of old records: Notes from Dr. Kiser 04/20/2023: The patient is a 62 y.o. male, an established patient, and is here for He has a history of phimosistreated successfully with Lotrisone cream in October 2020. Additionally has lower urinary tract symptoms and has been using tamsulosin. Began having urge and urge incontinence and we added oxybutynin extended release 10 mg in 2020. That has successfully treated this. . He returns today stating that he is had a few months of having burning around the glans. No dysuria. On exam he has inflamed tissue around the glans. I can not completely retract the phimotic ring but can easily see the glans which appears healthy. There was a crack within the skin and on palpationthat is what is causing burning for him. Urinalysis today: No results for input(s): EXTPOCURCO , EXTPOCURCH , EXTPOCAPP , EXTPOCURBS , EXTPOCURBIL , EXTPOCUKET , EXTPOCUSPG , EXTPOCUHGB , EXTPOCUPRO , EXTPOCUURO , EXTPOCULEU , EXTPOCUNIT , EXTPOCUWBC , EXTPOCUBLD , EXTPOCURBC , EXTPOCUCRY , EXTPOCUBAC , EXTPOCUTREP , EXTPOCUPH in the last 72 hours. Last BUN and creatinine: Lab Results Component Value Date BUN 17 04/12/2023 Lab Results Component Value Date CREATININE 1.53 (H) 04/12/2023 Last PSA: No results found for: PSA Lab Results Component Value Date PROSTATICSP 0.93 09/27/2021 Past Medical, Family, and Social History Update: The following portions of the patient's history were reviewed and updated as appropriate: allergies, current medications, past family history, past medical history, past social history, past surgicalhistory and problem list. Past Medical History: Diagnosis Date Arthritis Athlete's foot Back pain Cellulitis Chronic kidney disease Cognitive developmental delay [place] Diabetes mellitus type 2, controlled [place] GERD (gastroesophageal reflux disease) Gout Hemorrhoid HTN (hypertension) Hyperlipidemia Obesity Peptic ulceration Peripheral vascular disease [place] Sleep apnea wears c-pap at home Umbilical hernia Past Surgical History: Procedure Laterality Date ABSCESS DRAINAGE pt states COLONOSCOPY N/A 03/31/2018 Performed by Ezequiel Osborn MD at [facility] ES[facility] / EGD 2019 with esophageal dilatioin HERNIA REPAIR TONSILLECTOMY VASCULAR SURGERY VEIN SURGERY Family History Problem Relation Age of Onset No Known Problems Mother Diabetes Father Current Outpatient Medications Medication Sig Dispense Refill acetaminophen 500 mg/15 mL liquid Orally amLODIPine (NORVASC) 5 mg tablet Take 0.5 tablets (2.5 mg total) by mouth in the morning. ARIPiprazole (ABILIFY) 20 mg tablet 0.5 tablets (10 mg total) in the morning. atorvastatin (LIPITOR) 40 mg tablet Take 1 tablet (40 mg total) by mouth in the morning. cholecalciferol, vitamin D3, 5,000 units tablet Take 1 tablet (5,000 Units total) by mouth in the morning. 30 tablet 11 clotrimazole-betamethasone (LOTRISONE) cream Apply 1 Application topically in the morning and 1 Application before bedtime. Do all this for 28 days. 45 g 1 cyclobenzaprine HCl (FLEXERIL ORAL) Flexeril diclofenac sodium (VOLTAREN) 1 % gel Apply 2 g topically in the morning and 2 g at noon and 2 g in the evening and 2 g before bedtime. 100 g 0 FA-vit Ywthr-U-lwvu-vitamin D3 0.8-2,000 mg-unit tablet 1 tablet Orally Once a day famotidine (PEPCID) 20 mg tablet Take 1 tablet (20 mg total) by mouth in the morning and 1 tablet (20 mg total) before bedtime. gabapentin (NEURONTIN) 600 mg tablet Take 1 tablet (600 mg total) by mouth nightly. ibuprofen (ADVIL,MOTRIN) 600 mg tablet Take 1 tablet (600 mg total) by mouth every 6 (six) hours asneeded for pain. Please take with food 30 tablet 0 insulin glargine (LANTUS, SEMGLEE) 100 unit/mL (3 mL) insulin pen Inject 30 Units under the skin nightly. 15 mL 12 insulin glargine (LANTUS, SEMGLEE) 100 unit/mL (3 mL) insulin pen Inject 35 Units under the skin inthe morning. 15 mL 12 JANUVIA 50 mg tablet Take 1 tablet (50 mg total) by mouth in the morning. KLOR-CON M20 20 mEq CR tablet TAKE 2 TABLETS BY MOUTH TWICE A DAY 360 tablet 4 levocetirizine (XYZAL) 5 mg tablet Take 1 tablet (5 mg total) by mouth every evening. lisinopriL (PRINIVIL,ZESTRIL) 40 mg tablet Take 1 tablet (40 mg total) by mouth in the morning. 90 tablet 3 magnesium oxide (MAGOX) 400 mg tablet Take 1 tablet (400 mg total) by mouth in the morning and 1 tablet (400 mg total) before bedtime. 60 tablet 5 meclizine (ANTIVERT) 25 mg tablet Take 1 tablet (25 mg total) by mouth 3 (three) times a day as needed for dizziness. 15 tablet 0 omeprazole (PriLOSEC) 20 mg capsule Take 1 tablet by mouth daily. ondansetron ODT (ZOFRAN ODT) 4 mg disintegrating tablet Dissolve 1 tablet (4 mg total) on tongue 3 (three) times a day as needed for nausea for up to 3 doses. 3 tablet 0 oxybutynin XL (DITROPAN-XL) 10 mg 24 hr tablet TAKE 1 TABLET (10 MG TOTAL) BY MOUTH IN THE MORNING FOR 360 DAYS. 90 tablet 3 permethrin (ELIMITE) 5 % cream Apply to affected area once 60 g 0 pilocarpine (SALAGEN) 7.5 MG tablet TAKE 1 TABLET BY MOUTH THREE TIMES A DAY 270 tablet 1 polyethylene glycol (GLYCOLAX) 17 gram packet Take 17 g by mouth in the morning. sucralfate (CARAFATE) 1 gram tablet Take 1 tablet (1 g total) by mouth nightly. tamsulosin (FLOMAX) 0.4 mg capsule Take 1 capsule (0.4 mg total) by mouth in the morning. 90 capsule 3 torsemide (DEMADEX) 20 mg tablet TAKE 2 (TWO) TABLET BY MOUTH EVERY MORNING 180 tablet 3 No current facility-administered medications for this visit. (All medications reviewed and updated by provider since last office visit or hospitalization) Allergies: Bee sting [hymenoptera allergenic extract] and Bee venom protein (honey bee) Tobacco History: Social History Tobacco Use Smoking Status Former Types: Cigarettes Quit date: 02/21/2003 Years since quittin.3 Smokeless Tobacco Former (If patient a smoker, smoking cessation counseling offered) Social History: Social History Substance and Sexual Activity Alcohol Use Yes Alcohol/week: 0.0 standard drinks of alcohol Comment: once a month Review of Systems: General: Negative for chills and fever. Cardiovascular: Negative for chest pain and shortness of breath. Gastrointestinal: Negative for constipation, diarrhea, nausea, and vomitting. Physical Exam: BP 120/72 Pulse 80 Ht 188 cm (6' 2 ) Wt 133.8 kg (295 lb) BMI 37.88 kg/m Constitutional: He appears well-developed. No distress. Pulmonary/Chest: Effort normal. No respiratory distress. Neurological: He is alert and oriented for age. Gait normal. GenutoUrinary: Phimosis, but slightly improved compared to prior exam. Nursing note and vitals reviewed. Assessment and Plan: Joshua was seen today for follow-up. Diagnoses and all orders for this visit: Phimosis Problem List Genitourinary Phimosis - Primary Overview 10/22/20: Phimosis. Recommendation was to trial the Lotrisone cream given. Recheck 3 weeks 11/19/20: Improved but not resolved. Plan to try clobetasol 12/18/20: Tight phimotic ring. I am able to retract the skin but he is not able to nor is he able toreturn the skin back in place. I demonstrated where I would like him to apply the cream. 01/21/21: Resolved with use of clobetasol. Plan to follow 04/20/23: Recurrent tight skin. Plan repeat trial clobetasol 06/02/23: Persistent, but I do not feel he has been applying the cream correctly. I showed him whereto apply the cream. There is now also evidence of yeast, so we will switch to Lotrisone 06/16/23: Some improvement with lotrisone but still an issue. He wants to discuss circumcision with MG Sanchez This note was created with the assistance of a speech recognition program. While intending to generate a timely document that accurately reflects the content of the visit, no guarantee can be provided that every grammatical or spelling mistake has been or will be identified or corrected. Thank you for your understanding. MG Millard 06/16/23 1425 documented in this encounterPro[facility]01-10-[facility]24 Evaluation + Plan note* Assessment & Plan Note - MG Millard - 06/02/2023 5:21 PM EST Associated Problem(s): Phimosis We will see him back in 2 weeks or sooner if any problems [facility]01-10-[facility]24 Miscellaneous Notes* Assessment & Plan Note - MG Millard - 06/02/2023 5:21 PM ESTAssociated Problem(s): Phimosis We will see him back in 2 weeks or sooner if any problems documented in this encounterPro[facility]01-10-2024 History of Present illness Narrative* GM Millard - 06/02/2023 1:45 PM EST Images from the original note were not included. [address] [place] [id number] Patient: Joshua Holder Date of : 1960 Encounter Date: 06/02/2023 History of Present Illness: The patient is a 62 y.o. male, an established patient, and is here for follow-up. He has been using clobetasol twice daily. Upon questioning, it sounds like he is only applying it to unaffected area. He still has phimosis and swelling. He reports that his glucose has been stable Summary of old records: Notes from Dr. Kiser 04/20/2023: The patient is a 62 y.o. male, an established patient, and is here for He has a history of phimosistreated successfully with Lotrisone cream in October 2020. Additionally has lower urinary tract symptoms and has been using tamsulosin. Began having urge and urge incontinence and we added oxybutynin extended release 10 mg in 2020. That has successfully treated this. . He returns today stating that he is had a few months of having burning around the glans. No dysuria. On exam he has inflamed tissue around the glans. I can not completely retract the phimotic ring but can easily see the glans which appears healthy. There was a crack within the skin and on palpationthat is what is causing burning for him. Urinalysis today: No results for input(s): EXTPOCURCO , EXTPOCURCH , EXTPOCAPP , EXTPOCURBS , EXTPOCURBIL , EXTPOCUKET , EXTPOCUSPG , EXTPOCUHGB , EXTPOCUPRO , EXTPOCUURO , EXTPOCULEU , EXTPOCUNIT , EXTPOCUWBC , EXTPOCUBLD , EXTPOCURBC , EXTPOCUCRY , EXTPOCUBAC , EXTPOCUTREP , EXTPOCUPH in the last 72 hours. Last BUN and creatinine: Lab Results Component Value Date BUN 17 04/12/2023 Lab Results Component Value Date CREATININE 1.53 (H) 04/12/2023 Last PSA: No results found for: PSA Lab Results Component Value Date PROSTATICSP 0.93 09/27/2021 Past Medical, Family, and Social History Update: The following portions of the patient's history were reviewed and updated as appropriate: allergies, current medications, past family history, past medical history, past social history, past surgicalhistory and problem list. Past Medical History: Diagnosis Date Arthritis Athlete's foot Back pain Cellulitis Chronic kidney disease Cognitive developmental delay [place] Diabetes mellitus type 2, controlled [place] GERD (gastroesophageal reflux disease) Gout Hemorrhoid HTN (hypertension) Hyperlipidemia Obesity Peptic ulceration Peripheral vascular disease [place] Sleep apnea wears c-pap at home Umbilical hernia Past Surgical History: Procedure Laterality Date ABSCESS DRAINAGE pt states COLONOSCOPY N/A 03/31/2018 Performed by Ezequiel Osborn MD at [facility] / EGD 2018 with esophageal dilatioin HERNIA REPAIR TONSILLECTOMY VASCULAR SURGERY VEIN SURGERY Family History Problem Relation Age of Onset No Known Problems Mother Diabetes Father Current Outpatient Medications Medication Sig Dispense Refill acetaminophen 500 mg/15 mL liquid Orally amLODIPine (NORVASC) 5 mg tablet Take 0.5 tablets (2.5 mg total) by mouth in the morning. ARIPiprazole (ABILIFY) 20 mg tablet 0.5 tablets (10 mg total) in the morning. atorvastatin (LIPITOR) 40 mg tablet Take 1 tablet (40 mg total) by mouth in the morning. cholecalciferol, vitamin D3, 5,000 units tablet Take 1 tablet (5,000 Units total) by mouth in the morning. 30 tablet 11 cyclobenzaprine HCl (FLEXERIL ORAL) Flexeril diclofenac sodium (VOLTAREN) 1 % gel Apply 2 g topically in the morning and 2 g at noon and 2 g in the evening and 2 g before bedtime. 100 g 0 FA-vit Jceqs-E-kyue-vitamin D3 0.8-2,000 mg-unit tablet 1 tablet Orally Once a day famotidine (PEPCID) 20 mg tablet Take 1 tablet (20 mg total) by mouth in the morning and 1 tablet (20 mg total) before bedtime. gabapentin (NEURONTIN) 600 mg tablet Take 1 tablet (600 mg total) by mouth nightly. ibuprofen (ADVIL,MOTRIN) 600 mg tablet Take 1 tablet (600 mg total) by mouth every 6 (six) hours asneeded for pain. Please take with food 30 tablet 0 insulin glargine (LANTUS, SEMGLEE) 100 unit/mL (3 mL) insulin pen Inject 30 Units under the skin nightly. 15 mL 12 insulin glargine (LANTUS, SEMGLEE) 100 unit/mL (3 mL) insulin pen Inject 35 Units under the skin inthe morning. 15 mL 12 JANUVIA 50 mg tablet Take 1 tablet (50 mg total) by mouth in the morning. KLOR-CON M20 20 mEq CR tablet TAKE 2 TABLETS BY MOUTH TWICE A DAY 360 tablet 4 levocetirizine (XYZAL) 5 mg tablet Take 1 tablet (5 mg total) by mouth every evening. lisinopriL (PRINIVIL,ZESTRIL) 40 mg tablet Take 1 tablet (40 mg total) by mouth in the morning. 90 tablet 3 magnesium oxide (MAGOX) 400 mg tablet Take 1 tablet (400 mg total) by mouth in the morning and 1 tablet (400 mg total) before bedtime. 60 tablet 5 meclizine (ANTIVERT) 25 mg tablet Take 1 tablet (25 mg total) by mouth 3 (three) times a day as needed for dizziness. 15 tablet 0 omeprazole (PriLOSEC) 20 mg capsule Take 1 tablet by mouth daily. ondansetron ODT (ZOFRAN ODT) 4 mg disintegrating tablet Dissolve 1 tablet (4 mg total) on tongue 3 (three) times a day as needed for nausea for up to 3 doses. 3 tablet 0 oxybutynin XL (DITROPAN-XL) 10 mg 24 hr tablet TAKE 1 TABLET (10 MG TOTAL) BY MOUTH IN THE MORNING FOR 360 DAYS. 90 tablet 3 permethrin (ELIMITE) 5 % cream Apply to affected area once 60 g 0 pilocarpine (SALAGEN) 7.5 MG tablet TAKE 1 TABLET BY MOUTH THREE TIMES A DAY 270 tablet 1 polyethylene glycol (GLYCOLAX) 17 gram packet Take 17 g by mouth in the morning. sucralfate (CARAFATE) 1 gram tablet Take 1 tablet (1 g total) by mouth nightly. tamsulosin (FLOMAX) 0.4 mg capsule Take 1 capsule (0.4 mg total) by mouth in the morning. 90 capsule 3 torsemide (DEMADEX) 20 mg tablet TAKE 2 (TWO) TABLET BY MOUTH EVERY MORNING 180 tablet 3 clotrimazole-betamethasone (LOTRISONE) cream Apply 1 Application topically in the morning and 1 Application before bedtime. Do all this for 28 days. 45 g 1 No current facility-administered medications for this visit. (All medications reviewed and updated by provider since last office visit or hospitalization) Allergies: Bee sting [hymenoptera allergenic extract] and Bee venom protein (honey bee) Tobacco History: Social History Tobacco Use Smoking Status Former Types: Cigarettes Quit date: 02/21/2003 Years since quittin.2 Smokeless Tobacco Former (If patient a smoker, smoking cessation counseling offered) Social History: Social History Substance and Sexual Activity Alcohol Use Yes Alcohol/week: 0.0 standard drinks of alcohol Comment: once a month Review of Systems: General: Negative for chills and fever. Cardiovascular: Negative for chest pain and shortness of breath. Gastrointestinal: Negative for constipation, diarrhea, nausea, and vomitting. Physical Exam: BP 146/74 Pulse 64 Ht 188 cm (6' 2 ) Wt 133.8 kg (295 lb) BMI 37.88 kg/m Constitutional: He appears well-developed. No distress. Pulmonary/Chest: Effort normal. No respiratory distress. Neurological: He is alert and oriented for age. Gait normal. Genitourinary: Phimosis, there is also evidence of some white discharge and erythema. Nursing note and vitals reviewed. Assessment and Plan: Joshua was seen today for follow-up. Diagnoses and all orders for this visit: Phimosis Other orders - clotrimazole-betamethasone (LOTRISONE) cream; Apply 1 Application topically in the morning and 1 Application before bedtime. Do all this for 28 days. Problem List Genitourinary Phimosis - Primary Overview 10/22/20: Phimosis. Recommendation was to trial the Lotrisone cream given. Recheck 3 weeks 11/19/20: Improved but not resolved. Plan to try clobetasol 12/18/20: Tight phimotic ring. I am able to retract the skin but he is not able to nor is he able toreturn the skin back in place. I demonstrated where I would like him to apply the cream. 01/21/21: Resolved with use of clobetasol. Plan to follow 04/20/23: Recurrent tight skin. Plan repeat trial clobetasol 06/02/23: Persistent, but I do not feel he has been applying the cream correctly. I showed him whereto apply the cream. There is now also evidence of yeast, so we will switch to Lotrisone Current Assessment & Plan We will see him back in 2 weeks or sooner if any problems MG MILLARD This note was created with the assistance of a speech recognition program. While intending to generate a timely document that accurately reflects the content of the visit, no guarantee can be provided that every grammatical or spelling mistake has been or will be identified or corrected. Thank you for your understanding. MG Millard 06/02/23 1722 documented in this encounterPro[facility] Instructions* Patient Instructions* MG Millard - 06/02/2023 1:45 PM EST Stop using the clobetasol cream and try Lotrisone instead. I need you to apply deeper her than you have been applying it. I need you to insert a finger into the opening and apply the cream to the tight area there. Apply it around the entire ring and try to apply a little pressure to get it to stretch. Do this twice a day. Call if anything progresses before your follow-up in 2 weeks. Jarett: [phone] (Ext [phone]) -Wed documented in this encounterProMedica Fostoria [facility] HospitalEvaluation note* Diagnosis Phimosis- Primary Redundant prepuce and phimosis [facility]* Diagnosis Phimosis- Primary Redundant prepuce and phimosis documented in [facility]* Diagnosis Phimosis- Primary Redundant prepuce and phimosis documented [facility]* Diagnosis Onset Date Resolution Status Depression acute Hypertriglyceridemia acute Suicidal ideation acute Type 2 diabetes mellitus [facility] Work Phone: Evaluation note* Diagnosis Urinary incontinence, unspecified type- Primary Phimosis Redundant prepuce and phimosis Phimosis- Primary Redundant prepuce and phimosis Edema, unspecified Acute kidney injury ([facility]) documented in this encounter [facility]* Attachments The following attachments cannot be sent through Care Everywhere. 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 ACP-Advance Directive ACP-Power of Curator [employer] Latest Code Status on File Code Status Date Activated Date Inactivated Comments Full Code 04/03/2023 8:34 AM 04/04/2023 3:12 PM Code Status History Code Status Date Activated Date Inactivated Comments Full Code 08/02/2022 9:52 PM 08/03/2022 6:01 PM Full Code 11/28/2018 8:01 AM 12/01/2018 11:52 AM Full Code 11/13/2018 5:26 PM 11/16/2018 12:28 PM Full Code 10/30/2018 5:25 PM 11/02/2018 6:47 PM Advance Directive Response Recorded Date/ Time Advance Directives No June 3:54pm Date Activated Date Inactivated Comments 03/14/2024 12:33 AM Date Activated Date Inactivated Comments 09/10/2023 3:41 PM 09/13/2023 2:58 PM Date Activated Date Inactivated Comments 04/03/2023 8:34 AM 04/04/2023 3:12 PM Date Activated Date Inactivated Comments 08/02/2022 9:52 PM 08/03/2022 6:01 PM Date Activated Date Inactivated Comments 11/28/2018 8:01 AM 12/01/2018 11:52 AM Assessments Diagnosis Type 2 diabetes mellitus without complication, without long-term current use of insulin (HCC) Chief Complaint and Reason for Visit Chief Complaint BH Voluntary: Bipolar Disorder Voluntary: Bipolar Disorder Reason for Visit Depression Hypertriglyceridemia Suicidal ideation Type 2 diabetes mellitus Additional Source Comments (unrecognized sect ion and content) No Status Records FoundNo Status Records FoundNo Status Records FoundNo Status Records FoundNo Status Records FoundNo Status Records Found INFORMATION SOURCE (unrecogn ized section and content) DATE CREATED AUTHOR 01/11/2020 [facility] DATE CREATED AUTHOR AUTHOR'S ORGANIZ ATION 10/18/2020 [facility] DATE CREATED AUTHOR AUTHOR'S ORGANIZ ATION 01/19/2024 [facility] EP[facility] DATE CREATED AUTHOR AUTHOR'S ORGANIZ ATION 01/26/2024 [facility] DATE CREATED AUTHOR AUTHOR'S ORGANIZ ATION 03/18/[address] [facility] DATE CREATED AUTHOR AUTHOR'S ORGANIZ ATION [facility]18/20[facility] Reason for Visit (unrecogniz ed section and content) Reason Comments Follow-up Reason Comments Med Refill Care Teams (unrecognized sec tion and content) Insurance Specialist Relationship Specialty Start Date End Date Jessica Carlos MD [phone] [address] PCP - General Family Medicine 08/16/22 Insurance Specialist Relationship Specialty Start Date End Date Jessica Carlos MD [phone] [address] PCP - General Family Medicine 08/16/22 Insurance Specialist Relationship Specialty Start Date End Date Jessica Carlos MD [address] [address] PCP - General Family Medicine 06/26/23 Team Status: Active Member Role Status Dates NON STAFF Primary Care Provider Active Team Status: Active Member Role Status Dates PHYSICIAN NO FAMILY Primary Care Provider Active Start: February 19, 2024 Timbo Boland MD Attending Provider Active Start: February 19, 2024 Team Status: Inactive Member Role Status Dates NON STAFF Primary Care Provider Active Start: February 20, 2024 End: February 22, 2024 Timbo Boland MD Admit Provide r, Attending Provider Active Start: February 20, 2024 End: February 22, 2024 Angella Bonilla RN Other Provider Active Star t: February 20, 2024 End: February 22, 2024 Liz Gearheart , RN Other Provider Active Start : February 20, 2024 End: February 22, 2024 Jarett Basurto RN Other Provider Active Star t: February 20, 2024 End: February 22, 2024 Doris Veloz RN Other Provider Active Start: S eptember 2023 End: February 22, 2024 Paulette Salas RN Other Provider Active Start: Se ptember 2023 End: February 22, 2024 Adeline Russo MD Other Provider Active Start: February 20, 2024 End: February 22, 2024 Jaime Evans DO Other Provider Active Start : February 20, 2024 End: February 22, 2024 Marquez Osborne MD Other Provider Active Start : February 20, 2024 End: February 22, 2024 Cuauhtemoc Dobson DO Other Provider Active Start: February 20, 2024 End: February 22, 2024 Brody Rosales MD Other Provider Active Start: February 20, 2024 End: February 22, 2024 Chiara Cardenas MD Other Provider Active Start : February 20, 2024 End: February 22, 2024 Jacob Carver MD Other Provider Active Start: S epteer 2023 End: February 22, 2024 Keisha Parsons APRN Other Provider Active Start: February 20, 2024 End: February 22, 2024 Tiago Vazquez MD Other Provider Active Start: February 20, 2024 End: February 22, 2024 Vern Looney MD Other Provider Active Start: S eptember 2023 End: February 22, 2024 Lori Chu MD Other Provider Active Start: February 20, 2024 End: February 22, 2024 Jimenez Michelle MD Other Provider Active Start: February 20, 2024 End: February 22, 2024 Blayne Estrada DO Other Provider Active Start: February 20, 2024 End: February 22, 2024 Frida Forrester MD Other Provider Active Start: Se ptember 2023 End: February 22, 2024 Xu Snowden MD Other Provider Active Start: Jan tember 2023 End: February 22, 2024 EVE Edwards Other Provider Active St art: February 20, 2024 End: February 22, 2024 Santos Eller APRN Other Provider Active Star t: February 20, 2024 End: February 22, 2024 Gilbert Rosas MD Other Provider Active Start: February 20, 2024 End: February 22, 2024 Mohit Thorpe MD Other Provider Active Start: pt2023 End: February 22, 2024 Bhanu Skaggs MD Other Provider Active Start: Jan End: February 22, 2024 Chencho Field MD Other Provider Active Star t: February 20, 2024 End: February 22, 2024 Sourav Dallas MD Other Provider Active Start: S eptembsai 2023 End: February 22, 2024 Jacki Rosales DO Other Provider Active Start: pt2023 End: February 22, 2024 Herson Thomason DO Other Provider Active Start : February 20, 2024 End: February 22, 2024 Tyesha Jara APRN Other Provider Active Start: February 20, 2024 End: February 22, 2024 Nomi Jung DO Other Provider Active Start: February 20, 2024 End: February 22, 2024 Rebecca Hodges MD Other Provider Active Sta rt: February 20, 2024 End: February 22, 2024 Nae Alvarez APRN Other Provider Active Start : February 20, 2024 End: February 22, 2024 Yanely Han APRN Other Provider Active St art: February 20, 2024 End: February 22, 2024 Kyrie Connor MD Other Provider Active Start: S eptembsai 2023 End: February 22, 2024 Jordy Pratt MD Other Provider Active S tart: February 20, 2024 End: February 22, 2024 Philippe Tapia DO Other Provider Active Star t: February 20, 2024 End: February 22, 2024 Royer Thompson DO Other Provider Active Start: February 20, 2024 End: February 22, 2024 Ashkan Skaggs MD Other Provider Active Start: February 20, 2024 End: February 22, 2024 Rosa Pringle MD Other Provider Active Start: January End: February 22, 2024 Prachi Tapia APRN Other Provider Active Star t: February 20, 2024 End: February 22, 2024 Abby Hickman MD Other Provider Active Start: S eptember 2023 End: February 22, 2024 Jitendra Velazquez MD Other Provider Active Start: Se ptember 2023 End: February 22, 2024 Priya Hua RN Other Provider Active Start: S epte2023 End: February 22, 2024 Team Status: Active Member Role Status Dates NON STAFF Primary Care Provider Active Start: February 20, 2024 Timbo Boland MD Admit Provide r, Attending Provider, Other Provider Active Start: February 20, 2024 Angella Bonilla RN Other Provider Active Star t: February 20, 2024 Liz Alcocer , GIOVANNI Other Provider Active Start : February 20, 2024 Jarett Basurto RN Other Provider Active Star t: February 20, 2024 Doris Veloz RN Other Provider Active Start: S epte2023 Paulette Salas , GIOVANNI Other Provider Active Start: Se ptember 2023 Adeline Russo MD Other Provider Active Start: February 20, 2024 Jaime Evans DO Other Provider Active Start : February 20, 2024 Marquez Osborne MD Other Provider Active Start : February 20, 2024 Cuauhtemoc Dobson DO Other Provider Active Start: February 20, 2024 Brody Rosales MD Other Provider Active Start: February 20, 2024 Chiara Cardenas MD Other Provider Active Start : February 20, 2024 Jacob Carver MD Other Provider Active Start: S ep2023 Keisha Parsons APRN Other Provider Active Start: February 20, 2024 Tiago Vazquez MD Other Provider Active Start: February 20, 2024 Vern Looney MD Other Provider Active Start: S ep2023 Lori Chu MD Other Provider Active Start: February 20, 2024 Jimenez Michelle MD Other Provider Active Start: February 20, 2024 Blayne Estrada , Other Provider Active Start: February 20, 2024 Frida Forrester MD Other Provider Active Start: 2023 Xu Snowden MD Other Provider Active Start: Jan Margaret Vega NP-C Other Provider Active St art: February 20, 2024 Santos Eller APRN Other Provider Active Star t: February 20, 2024 Gilbert Rosas MD Other Provider Active Start: February 20, 2024 Mohit Thorpe MD Other Provider Active Start: 2023 Bhanu Skaggs MD Other Provider Active Start: Jan Chencho Field MD Other Provider Active Star t: February 20, 2024 Sourav Dallas MD Other Provider Active Start: S eptember 2023 Jacki Rosales DO Other Provider Active Start: 2023 Herson Thomason , Other Provider Active Start : February 20, 2024 Tyesha Jara APRN Other Provider Active Start: February 20, 2024 Nomi Jung DO Other Provider Active Start: February 20, 2024 Rebecca Hodges MD Other Provider Active Sta rt: February 20, 2024 Nae Alvarez APRN Other Provider Active Start : February 20, 2024 Yanely Han APRN Other Provider Active St art: February 20, 2024 Kyrie Connor MD Other Provider Active Start: S eptember 2023 Jordy Pratt MD Other Provider Active S tart: February 20, 2024 Philippe Tapia , Other Provider Active Star t: February 20, 2024 Royer Thompson DO Other Provider Active Start: February 20, 2024 Ashkan Skaggs MD Other Provider Active Start: February 20, 2024 Rosa Pringle MD Other Provider Active Start: January Prachi Tapia APRN Other Provider Active Star t: February 20, 2024 Abby Hickman MD Other Provider Active Start: S eptember 2023 Jitendra Velazquez MD Other Provider Active Start: Se ptember 2023 Priya Hua RN Other Provider Active Start: S brea 2023 Insurance Specialist Relationship Specialty Start Date End Date Jessica Carlos MD [address] [facility] [address] [place] [address] PCP - General Family Medicine 09/10/23 FOR RECORDS PERTAINING TO PATIENTS WHO ARE OR HAVE BEEN ENROLLED IN A CHEMICAL DEPENDENCY/SUBSTANCEABUSE PROGRAM, SOME INFORMATION MAY BE OMITTED. This clinical summary was aggregated from multiple sources. Caution should be exercised in using it in the provision of clinical care. This summary normalizes information from multiple sources, and as a consequence, information in this document may materially change the coding, format and clinical context of patient data. In addition, data may be omitted in some cases. CLINICAL DECISIONS SHOULD BE BASED ON THE PRIMARY CLINICAL RECORDS. [employer] provides no warranty or guarantee of the accuracy or completeness of information in this document.
[2024-03-21] MEDS: SUCRALFATE 1 GM TABLET PO (22:19)
[2024-03-21] MEDS: LACTATED RINGER'S SOLUTION 1,000 ML 100 ML IV (22:19)
[2024-03-21 22:23] LABS: Glucometer 67 mg/dL (74-106)
[2024-03-21 23:08] LABS: Glucometer 135 mg/dL (74-106)
[2024-03-22] VITALS (12 sets, daily range): BP systolic 110–127; BP diastolic 66–76; PULSE 79–91; TEMP 36.5–36.7; O2SAT 92–95
[2024-03-22] MEDS: OMEPRAZOLE 20 MG CAPSULE.DR PO (05:43)
[2024-03-22 06:19] LABS: Basophils Percent Auto 0.4 % (0.2-2.0); Eosinophils Absolute Auto 0.3 10^3/uL (0.0-0.7); Eosinophils Percent Auto 4.1 % (0.9-7.0); Hemoglobin 10.8 g/dL (14.0-18.0); Immature Granulocytes Abs Auto 0.02 10^3/uL (0.00-0.03); Immature Granulocytes Pct Auto 0.2 % (0.0-0.5); Lymphocytes Absolute Auto 2.7 10^3/uL (1.2-3.8); Lymphocytes Percent Auto 34.2 % (20.5-60.0); Mean Corpuscular HGB Conc 32.7 g/dL (29.9-35.2); Mean Corpuscular Hemoglobin 27.2 pg (25.9-34.0); Mean Corpuscular Volume 83.1 fL (80.0-94.0); Monocytes Absolute Auto 0.5 10^3/uL (0.3-0.8); Monocytes Percent Auto 6.2 % (1.7-12.0); Neutrophils Absolute Auto 4.4 10^3/uL (1.4-6.5); Neutrophils Percent Auto 54.9 % (43.0-75.0); Platelet Count 186 10^3/uL (150-450); Red Blood Count 3.97 10^6/uL (4.70-6.10); Red Cell Distribution Width 16.4 % (11.0-15.0)
[2024-03-22 06:35] LABS: Estimated Average Glucose 217 mg/dL; Glycohemoglobin A1C 9.2 % (4.5-6.2)
[2024-03-22 06:53] LABS: Alanine Aminotransferase 31 U/L (16-63); Albumin Globulin Ratio 0.8; Albumin Level 3.1 g/dL (3.4-5.0); Alkaline Phosphatase 136 U/L (46-116); Anion Gap 18.3; Aspartate Amino Transferase 25 U/L (15-37); BUN Creatinine Ratio 12.5; Bilirubin Total 0.3 mg/dL (0.2-1.0); Calcium 8.7 mg/dL (8.5-10.1); Carbon Dioxide 19.7 mmol/L (21.0-32.0); Chloride 109 mmol/L (98-107); Chol HDL Ratio 3.6; Cholesterol 96 mg/dL (<=200); Estimated GFR (African America 22 (>=60 mL/min/1.73m^2); Estimated GFR (Non-African Ame 18 (>=60 mL/min/1.73m^2); Globulin 3.9 g/dL; Glucose 84 mg/dL (74-106); HDL Cholesterol 27 mg/dL (40-60); Magnesium 1.8 mg/dL (1.8-2.4); Sodium 143 mmol/L (136-145); Triglycerides 239 mg/dL (<=150); VLDL CHOLESTEROL 47.8 mg/dL
--- NOTE | 2024-03-22 08:05 | PM.HP ---
HPI H&P: HPI History of Present Illness Chief complaint: ACUTE KIDNEY INJURY Narrative: Patient is a 63 y.o white male with past medical history of type 2 diabetes, insulin dependent, HLD, GERD, BPH and kidney disfunction who presented to the ER last night with complaints of dizziness and general feeling of unwell. He was admitted a few days ago in [facility] for HAYDEN. He has follow up with his PCP, Dr. Pizarro since that admission. He returns to the ER today because he still doesn't feel well and with dizziness. He states the dizziness is present for a few minutes then goes away, feels like the room is spinning. She reports sugars and blood pressures have been stable. No recent medication changes. He denies any recent URI or illness. He has chronic kidney disease and sees a photogrammetric stereo compiler at [facility] in [place]. He denies dizziness this morning on exam. ER Findings: Cr 4.79, BU?N 55, potassium 4.8, Sodium 4.8, WBCs 8.0, Hb 11.6; Normal Urinalysis, normal magnesium, normal Urine drug screen, Head CT negative for any acute findings; Anion Gap 20. patient was admitted for acute on chronic renal failure and further plan of care. Opioid HPI Opioid Management Most Recent Pain and Opioid Data: Last Pain Scale 0 03/22/24 07:47 03/22/24 Last Pain Assessment 03/22/24 13:38 Last ORT Total Score 0 03/21/24 18:22 03/21/24 Last ORT Risk Category Low Risk 03/21/24 18:22 03/21/24 Ur Phencyclidine Scrn Negative (NEGATIVE) 02/19/24 22:53 02/19/24 Review of Systems ROS Narrative ROS: a complete review of systems were reviewed with patient and are positive as below or listed in History of Chief Complaint. General: no fever, chills, night sweats Head: no headache, trauma, visual changes, nausea or vomiting Skin: no reported rashes, itching or sores Eyes: no blurriness of vision Ears: no reported hearing loss, vertigo, earache, or tinnitus Throat: no sore throat, hoarseness, swelling of neck, or tongue pain Heart: no chest pain Lungs: no shortness of breath or cough GI: no diarrhea or vomiting/nausea Urinary: no urinary urgency, frequency or pain Neuro: no numbness or tingling HEM: no bleeding issues or bruising ENDO: no thyroid problems Psych: no anxiety or depression PFSH PFSH Medical History (Updated 03/22/24 @ 14:04 by Katie Hyatt DO) GERD (gastroesophageal reflux disease) ?K21.9 - Gastro-esophageal reflux disease without esophagitis (ICD-10) High cholesterol ?E78.00 - Pure hypercholesterolemia, unspecified (ICD-10) Diabetes ?E11.9 - Type 2 diabetes mellitus without complications (ICD-10) Hypertension ?I10 - Essential (primary) hypertension (ICD-10) Social History Highest level of school completed/degree received: high school graduate Little interest or pleasure in doing things: not at all Feeling down, depressed, or hopeless: not at all Do you think of yourself as: straight/heterosexual Gender Identity: male Meds Home Medications and Allergies Home Medications ?Medication ?Instructions ?Recorded ?Confirmed ?Type glimepiride 4 mg tablet 4 mg PO BID 02/19/24 03/22/24 History insulin glargine 100 unit/mL (3 35 unit subcut DAILY 02/19/24 03/21/24 History mL) subcutaneous pen (Lantus Solostar U-100 Insulin) levocetirizine 5 mg tablet 5 mg PO DAILY 02/19/24 03/21/24 History semaglutide 0.25 mg or 0.5 mg (2 0.25 mg subcut QWEEK 02/19/24 03/22/24 History mg/3 mL) subcutaneous pen injector (Ozempic) ferrous sulfate 325 mg (65 mg 325 mg PO DAILY 03/21/24 03/21/24 History iron) tablet insulin glargine 100 unit/mL (3 30 unit subcut QPM 03/21/24 03/21/24 History mL) subcutaneous pen sucralfate 1 gram tablet 1 g PO .QHS 03/21/24 03/22/24 History tamsulosin 0.4 mg capsule 0.4 mg PO DAILY 03/21/24 03/21/24 History cholecalciferol (vitamin D3) 125 125 mcg PO DAILY 03/22/24 03/22/24 History mcg (5,000 unit) tablet (Vitamin D3) magnesium oxide 400 mg PO DAILY 03/22/24 03/22/24 History Allergies Allergy/AdvReac Type Severity Reaction Status Date / Time No Known Drug Allergies Allergy Verified 03/21/24 15:48 Exam Narrative Exam Narrative: General: Patient is alert, and oriented to person, place and time with normal affect, proper hygiene Skin: no visible rashes, or ulcers Head: atraumatic, acephalic Eyes: PERRLA, no nystagmus present, conjunctiva clear, no scleral icterus Ears: normal Tympanic Membrane on the right but large cerumen impaction in the left ear, normal gross auditory acuity Nose: symmetric, no discharge, no maxillary or frontal sinus tenderness Mouth/Throat: no erythema, exudate, or tonsillar enlargement, normal dentition Neck: no masses palpated, normal thyroid, no JVD or audible carotid bruits Heart: Normal rate and rhythm, no murmurs/rubs/gallops Lungs: no audible wheezes, crackles and normal breath sounds all lung trent Abdomen: Normal audible bowel sounds, no distension, No palpable masses, no organomegaly, no rebound/guarding/ or rigidity Musculoskeletal: muscle atrophy noted, ROM is limited due to being in hospital bed, no swelling bilateral lower extremities Vascular: Normal carotid, radial, femoral, posterior tibial, and dorsalis pedis pulses Lymph: no supraclavicular, axillary, or anterior/posterior cervical adenopathy Neuro: CN II-X grossly intact, normal sensation upper and lower extremities Constitutional Vital Signs, click to edit/add: Last Vital Signs Temp 98.0 F 03/22/24 07:47 Pulse 81 03/22/24 08:00 Resp 18 03/22/24 07:47 BP 120/67 03/22/24 07:47 Pulse Ox 94 L 03/22/24 07:47 O2 Del Method Room Air 03/22/24 07:47 Results Labs Labs: Short CBC 03/21/24 03/22/24 Range/Units 16:24 05:43 WBC 9.3 8.0 (4.0-11.0) 10^3/uL Hgb 11.6 L 10.8 L (14.0-18.0) g/dL Hct 36.0 L 33.0 L (42.0-54.0) % Plt Count 200 186 (150-450) 10^3/uL BMP 03/21/24 03/22/24 16:24 05:43 Sodium 139 143 Potassium 4.8 4.0 Chloride 104 109 H Carbon Dioxide 19.0 L 19.7 L BUN 55.0 H 44.0 H Creatinine 4.79 H 3.52 H Glucose 209 H 84 Calcium 8.8 8.7 Liver Function 03/21/24 03/22/24 Range/Units 16:24 05:43 Total Bilirubin 0.4 0.3 (0.2-1.0) mg/dL AST 31 25 (15-37) U/L ALT 36 31 (16-63) U/L Alkaline Phosphatase 160 H 136 H (46-116) U/L Albumin 3.5 3.1 L (3.4-5.0) g/dL ABG ABG results: 03/21/24 17:43 VBG pH 7.395 VBG pCO2 27.7 L Assessment and Plan Assessment and Plan (1) Acute renal failure: Assessment and Plan: Hold nephrotoxic medications, I ordered a renal ultrasound this morning which showed no obstructions, Left small non obstructive stone, no hydronephrosis, incidental left renal cyst, otherwise normal renal ultrasound, patient did have some post residual urine in the bladder. I placed him on IVF last night. Cr was 4.79, down to 3.52 today. I do not have a baseline. Normal electrolytes, CK level is pending. This chronic in nature, UA was negative for infection. continue with IVF. Will follow up closely with His photogrammetric stereo compiler Qualifiers: Acute renal failure type: unspecified Qualified Code(s): N17.9 - Acute kidney failure, unspecified (2) Diabetes: Assessment and Plan: continue lantus, and SSI, ha1c was 9.2 Qualifiers: Diabetes mellitus complication status: with hyperglycemia Diabetes mellitus technician terminal and repeater insulin use: with technician terminal and repeater use Diabetes mellitus type: type 2 Qualified Code(s): E11.65 - Type 2 diabetes mellitus with hyperglycemia; Z79.4 - snf (current) use of insulin (3) Hypertension: Assessment and Plan: Not currently on medications, bp stable, get orthostatics Qualifiers: Hypertension type: secondary to endocrine disorders Qualified Code(s): I15.2 - Hypertension secondary to endocrine disorders (4) High cholesterol: Assessment and Plan: retail history in the distance of atorvastatin, does not appear he has been taking; lipids are stable ///239. (5) GERD (gastroesophageal reflux disease): Assessment and Plan: continue omeprazole and sucralfate as needed. Qualifiers: Esophagitis presence: esophagitis presence not specified Qualified Code(s): K21.9 - Gastro-esophageal reflux disease without esophagitis (6) Anemia: Assessment and Plan: check iron studies today Qualifiers: Anemia type: unspecified type Qualified Code(s): D64.9 - Anemia, unspecified (7) Impacted cerumen of left ear: Assessment and Plan: I think this is most likely the cause of his dizziness. Will treat with debrox drops. He will follow up with PCP after using for 5-7 days Plan Patient is a Full code SCD's for prophylaxis given kidney function and anemia Patient is observation status and is not expected to cross 2 midinights
[2024-03-22] MEDS: LACTATED RINGER'S SOLUTION 1,000 ML 100 ML IV (08:07)
[2024-03-22 08:32] LABS: Creatine Kinase 94 U/L (39-308)
[2024-03-22 09:02] LABS: Percent Iron Saturation 15.7 %
[2024-03-22] MEDS: FERROUS SULFATE 325 MG TABLET PO (09:36)
[2024-03-22] MEDS: TAMSULOSIN HCL 0.4 MG CAPSULE PO (09:36)
[2024-03-22 11:09] LABS: Glucometer 182 mg/dL (74-106)
--- NOTE | 2024-03-22 11:19 | CM.NOTE ---
Rounds made with Dr. Hyatt. Dr. Hyatt reviews findings and plan of care with Chika Gallo. Potential discharge later today.
[2024-03-22] MEDS: CARBAMIDE PEROXIDE 6.5% EAR DROPS 300 DROP/15 ML BOTTLE OT (11:40)
--- NOTE | 2024-03-22 12:26 | SWNOTE1 ---
Medicare Outpatient Observation Notice reviewed and discussed with patient. Pt. verbalized understanding and signed the form. Original given to patient and copy placed in patient?s chart. Pt voiced he is independent at home and still drives. Pt and are out and about. Pt had an order for home health for pt, but at this time he does not qualify. Pt has no concerns about discharge at this time. SW reviewed therapy notes and pt was independent. Pt's in room as well. Pt drove himself here and will drive them home. They do the grocery shopping and cooking together.
--- NOTE | 2024-03-22 14:09 | P.DS_ITS ---
DS: Providers Provider Date of admission: 03/21/24 18:12 Primary care physician: Non-Staff Physician, Attending physician on admission: Katie Hyatt Consults: 03/21/24 Consult to [employer] Sheet [employer]er Routine Reason for consult:: Home Health 03/21/24 17:24 Occupational Therapy Eval and Treat Routine Reason for consultation: weakness, dizziness Has provider been notified: No Physical Therapy Eval and Treat Routine Reason for consultation: weakness, dizziness Has provider been notified: No Attending physician on discharge: Katie Hyatt DS: Diagnosis Discharge Diagnosis (1) Acute renal failure: Qualifiers: Acute renal failure type: unspecified Qualified Code(s): N17.9 - Acute kidney failure, unspecified (2) Diabetes: Qualifiers: Diabetes mellitus type: type 2 Diabetes mellitus care home insulin use: with rat exterminator use Diabetes mellitus complication status: with hyperglycemia Qualified Code(s): E11.65 - Type 2 diabetes mellitus with hyperglycemia; Z79.4 - long term care administrator (current) use of insulin (3) Hypertension: Qualifiers: Hypertension type: secondary to endocrine disorders Qualified Code(s): I15.2 - Hypertension secondary to endocrine disorders (4) High cholesterol: (5) GERD (gastroesophageal reflux disease): Qualifiers: Esophagitis presence: esophagitis presence not specified Qualified Code(s): K21.9 - Gastro-esophageal reflux disease without esophagitis (6) Anemia: Qualifiers: Anemia type: unspecified type Qualified Code(s): D64.9 - Anemia, unspecified (7) Impacted cerumen of left ear: DS: Summary Hospital Course Hospital Course: please see H&P dated 03/22/24, Patient will have close outpatient follow up to discuss insulin dosage and also to make sure his cerumen impaction and dizziness have resolved. Status at Discharge Functional status at discharge: independent ambulation Overall status at discharge: patient is back to baseline Time Spent with Patient Time attestation: Total time spent providing and/or coordinating discharge services: Time spent: greater than 30 minutes Exam Narrative Exam Narrative: no changes from H&P dated 03/22/24 Constitutional Vital Signs, click to edit/add: Last Vital Signs Temp 97.7 F 03/22/24 11:42 Pulse 83 03/22/24 11:54 Resp 18 03/22/24 11:42 BP 127/76 03/22/24 11:54 Pulse Ox 95 03/22/24 11:42 O2 Del Method Room Air 03/22/24 11:42 DS: Data Data Completed and Pending Labs on day of discharge: Labs from last 24 hours 03/22/24 03/22/24 03/22/24 11:09 08:25 05:43 WBC 8.0 RBC 3.97 L Hgb 10.8 L Hct 33.0 L MCV 83.1 MCH 27.2 MCHC 32.7 RDW 16.4 H Plt Count 186 MPV 10.0 Neut % (Auto) 54.9 Lymph % (Auto) 34.2 [place] % (Auto) 6.2 Eos % (Auto) 4.1 Baso % (Auto) 0.4 Neut # (Auto) 4.4 Lymph # (Auto) 2.7 [place] # (Auto) 0.5 Eos # (Auto) 0.3 Baso # (Auto) 0.0 Abs Immat Gran (auto) 0.02 Imm/Tot Granulo (auto) 0.2 VBG pH VBG pCO2 Sodium 143 Potassium 4.0 Chloride 109 H Carbon Dioxide 19.7 L Anion Gap 18.3 BUN 44.0 H Creatinine 3.52 H Est GFR ( Amer) 22 L Est GFR (Non-Af Amer) 18 L BUN/Creatinine Ratio 12.5 Glucose 84 Estimat Average Glucose 217 Hemoglobin A1c 9.2 H Lactate Calcium 8.7 Magnesium 1.8 Iron 44.0 L TIBC 281.0 % Saturation 15.7 Ferritin 136.0 Total Bilirubin 0.3 AST 25 ALT 31 Alkaline Phosphatase 136 H Total Creatine Kinase 94 Troponin I High Sens Total Protein 7.0 Albumin 3.1 L Globulin 3.9 Albumin/Globulin Ratio 0.8 Triglycerides 239 H Cholesterol 96 LDL Cholesterol, Calc 22.0 VLDL Cholesterol 47.8 HDL Cholesterol 27 L Cholesterol/HDL Ratio 3.6 TSH 0.540 Acetone, Qual POC Glucose 182 H 03/21/24 03/21/24 03/21/24 23:06 22:18 17:43 WBC RBC Hgb Hct MCV MCH MCHC RDW Plt Count MPV Neut % (Auto) Lymph % (Auto) [place] % (Auto) Eos % (Auto) Baso % (Auto) Neut # (Auto) Lymph # (Auto) [place] # (Auto) Eos # (Auto) Baso # (Auto) Abs Immat Gran (auto) Imm/Tot Granulo (auto) VBG pH 7.395 VBG pCO2 27.7 L Sodium Potassium Chloride Carbon Dioxide Anion Gap BUN Creatinine Est GFR ( Amer) Est GFR (Non-Af Amer) BUN/Creatinine Ratio Glucose Estimat Average Glucose Hemoglobin A1c Lactate Calcium Magnesium Iron TIBC % Saturation Ferritin Total Bilirubin AST ALT Alkaline Phosphatase Total Creatine Kinase Troponin I High Sens Total Protein Albumin Globulin Albumin/Globulin Ratio Triglycerides Cholesterol LDL Cholesterol, Calc VLDL Cholesterol HDL Cholesterol Cholesterol/HDL Ratio TSH Acetone, Qual POC Glucose 135 H 67 L 03/21/24 16:24 WBC 9.3 RBC 4.25 L Hgb 11.6 L Hct 36.0 L MCV 84.7 MCH 27.3 MCHC 32.2 RDW 16.7 H Plt Count 200 MPV 10.1 Neut % (Auto) 66.4 Lymph % (Auto) 24.2 [place] % (Auto) 5.3 Eos % (Auto) 3.4 Baso % (Auto) 0.4 Neut # (Auto) 6.2 Lymph # (Auto) 2.3 [place] # (Auto) 0.5 Eos # (Auto) 0.3 Baso # (Auto) 0.0 Abs Immat Gran (auto) 0.03 Imm/Tot Granulo (auto) 0.3 VBG pH VBG pCO2 Sodium 139 Potassium 4.8 Chloride 104 Carbon Dioxide 19.0 L Anion Gap 20.8 BUN 55.0 H Creatinine 4.79 H Est GFR ( Amer) 15 L Est GFR (Non-Af Amer) 12 L BUN/Creatinine Ratio 11.5 Glucose 209 H Estimat Average Glucose Hemoglobin A1c Lactate 1.8 Calcium 8.8 Magnesium Iron TIBC % Saturation Ferritin Total Bilirubin 0.4 AST 31 ALT 36 Alkaline Phosphatase 160 H Total Creatine Kinase Troponin I High Sens 4.9 Total Protein 7.9 Albumin 3.5 Globulin 4.4 Albumin/Globulin Ratio 0.8 Triglycerides Cholesterol LDL Cholesterol, Calc VLDL Cholesterol HDL Cholesterol Cholesterol/HDL Ratio TSH Acetone, Qual Negative POC Glucose Discharge Plan Discharge Disposition: Home, Self-Care Discharge Medications: New Ear Wax Removal Drops 6.5 % Drops 5 drp otic (ear) BID 10 Days Qty: 15 0RF Continued glimepiride 4 mg tablet 4 mg PO BID levocetirizine 5 mg tablet 5 mg PO DAILY Ozempic 0.25 mg or 0.5 mg (2 mg/3 mL) pen injector 0.25 mg SUBCUT QWEEK insulin glargine 100 unit/mL (3 mL) insulin pen 30 unit subcut QPM sucralfate 1 gram tablet 1 g PO .QHS tamsulosin 0.4 mg capsule 0.4 mg PO DAILY ferrous sulfate 325 mg (65 mg iron) tablet 325 mg PO DAILY magnesium oxide 400 mg magnesium tablet 400 mg PO DAILY cholecalciferol (vitamin D3) [Vitamin D3] 125 mcg (5,000 unit) tablet 125 mcg PO DAILY Discontinued insulin glargine [Lantus Solostar U-100 Insulin] 100 unit/mL (3 mL) insulin pen 35 unit SUBCUT DAILY Activity: increase activity as tolerated Diet: advance to your usual diet Print Language: Maltese Forms: Portal Instructions Follow Up Appointments: Mar.30 @ 12:30pm with Dr. Pizarro [phone]
--- NOTE | 2024-03-22 14:25 | SWNOTE1 ---
SW spoke to the SW from the [facility] [employer] [facility] [employer]. He is aware that pt has been to [facility] 2x within the last 2 months and to [facility] as well. SW spoke with him about home health. The SW was trying to make sure the patient takes his meds at home. He said that the patient tells him that he takes his meds, but he is not sure. His concern being that pt and will likely not answer the phone and the likely will not let the home health people in. He also stated the cleanliness of the home is not the greatest. SW did advise the SW from [employer] that Home health will likely call several times, but if they do not answer, they can't just go in the home. SW asked if pt had a guardian or guardianship. He stated no, not at this time. The SW from [employer] plans on going to pt's follow up apt with pt. SW did let the other SW know that the patient may possibly agree to have someone else be the contact for home health that way someone is can schedule when HH comes in and be aware of the days/times, but pt would have to agree to that. At this time no services set up and the SW from the [employer] will follow up with pt at his follow up at [facility].
--- NOTE | 2024-03-23 13:34 | CM.DCFOLLOWU ---
Person spoke with: patient How are you feeling?well How is your pain? no pain Did you understand your discharge instructions?yes Do you have any questions about your discharge instructions?no Were you given any prescriptions at discharge? yes Were you able to get your prescriptions filled? they will deliver meds. Advised to call the pharmacy if he does not receive by tomorrow Do you understand how to take your medications as ordered?yes Do you have any questions about your follow up appointment and do you plan to keep your follow up appointment? no questions, reviewed follow up and he is trying to move it up. Is there anything else that you would like to discuss? no Questions/Comments/Concerns/Other:none
== END 2024-03-22 15:13 | disposition home or self-care (01) ==
LOC: ER 17:48 → MS 18:15
PROVIDERS: Admitting Provider Family Medicine; Emergency Provider Emergency Medicine Emergency Medical Services; Visit Provider Family Medicine
DX: N17.9 Acute kidney failure, unspecified (principal); E11.65 Type 2 diabetes mellitus with hyperglycemia; I12.9 Hypertensive chronic kidney disease with stage 1 through stage 4 chronic kidney disease, or unspecified chronic kidney disease; E11.22 Type 2 diabetes mellitus with diabetic chronic kidney disease; N18.9 Chronic kidney disease, unspecified; Z79.4 Long term (current) use of insulin; Z79.84 Long term (current) use of oral hypoglycemic drugs; Z79.85 Long-term (current) use of injectable non-insulin antidiabetic drugs; E78.00 Pure hypercholesterolemia, unspecified; K21.9 Gastro-esophageal reflux disease without esophagitis; D64.9 Anemia, unspecified; H61.22 Impacted cerumen, left ear; F88 Other disorders of psychological development; N20.0 Calculus of kidney; Z58.89 Other problems related to physical environment
CPT/HCPCS: 36415; 70450; 76770; 80053; 80061; 82009; 82550; 82728; 82800; 82948; 83036; 83540; 83550; 83605; 83735; 84443; 84484; 85025; 93005; 97162; 97165; 99285; G0378